=== PATIENT | male | born 1935 | race Caucasian/White ===

== ENCOUNTER 2017-07-25 18:28 | Inpatient (IN) | payer MEDICARE, OTHER ==
[~2017-07-25] VITALS: Ht 182.9 cm; Wt 127.5 kg
[2017-07-25 19:25] VITALS: BP 160/82
[2017-07-25] MEDS ORDERED: MAG HYDROX/AL HYDROX/SIMETH 30 ML ORAL.SUSP PO PRN (19:45)
[2017-07-25] MEDS ORDERED: MAGNESIUM HYDROXIDE 2,400 MG/30 ML ORAL.SUSP. PO PRN (19:45)
[2017-07-25] MEDS ORDERED: ACETAMINOPHEN 325 MG TABLET PO PRN (19:45)
[2017-07-25] MEDS ORDERED: METHYL SALICYLATE/MENTHOL TOPICAL OINTMENT 29GM TUBE. TP PRN (19:45)
[2017-07-25] MEDS: INSULIN LISPRO 300 UNITS/3 ML INSULN.PEN. SQ SCH ×2 (21:00→22:33)
[2017-07-25 21:23] LABS: BASO # 0.1 x10^3/uL (0.0-0.2); BASO % 1 % (0-3); EOS # 0.6 x10^3/uL (0.0-0.7); EOS % 8 % (0-3); HEMOGLOBIN 11.5 g/dL (13.0-17.5); LYMPH # 1.3 x10^3/uL (1.0-4.8); LYMPH % 16 % (24-48); MEAN CORPUSCULAR HEMOGLOBIN 33 pg (25-35); MEAN CORPUSCULAR HGB CONC 34 g/dL (31-37); MEAN CORPUSCULAR VOLUME 98 fL (79-100); MONO # 0.5 x10^3/uL (0.0-1.1); MONO % 7 % (0-9); NEUT # 5.3 x10^3uL (1.8-7.7); NEUT % 68 % (31-73); PLATELET COUNT 296 x10^3/uL (140-400); RED BLOOD COUNT 3.47 x10^6/uL (4.30-5.70); RED CELL DISTRIBUTION WIDTH 14.4 % (11.5-14.5); WHITE BLOOD COUNT 7.8 x10^3/uL (4.0-11.0)
--- NOTE | 2017-07-25 21:25 | PDOC ---
Exam Note: Eddie Note: Please also refer to the separate dictated note~for this date of service dictated separately.~Patient seen individually. Discussed the patient with Nursing staff reviewed the chart.~Reviewed interim history and current functioning. Reviewed vital signs,~Labs/ Radiology~and current medications noted below. Continue current treatment with the changes noted in the dictated addendum note Assessment: Vital Signs: Vital Signs Date Time Temp Pulse Resp B/P (MAP) Pulse Ox O2 Delivery O2 Flow Rate FiO2 07/25/17 19:25 97.7 73 20 160/82 (108) 100 Room Air Labs: Laboratory Tests Test 07/25/17 20:59 Glucose (Fingerstick) 188 mg/dL (70-99) H Current Medications: Meds: Current Medications Acetaminophen (Tylenol) 650 mg PRN Q6HRS PRN PO PAIN / TEMP; Start 07/25/17 at 19:45 Multi-Ingredient Ointment (Analgesic [place]) 1 nelson PRN QID PRN TP MUSCLE PAIN; Start 07/25/17 at 19:45 Al Hydroxide/Mg Hydroxide (Mylanta Plus Xs) 15 ml PRN AFTMEALHC PRN PO DYSPEPSIA; Start 07/25/17 at 19:45 Magnesium Hydroxide (Milk Of Magnesia) 2,400 mg PRN QHS PRN PO CONSTIPATION; Start 07/25/17 at 19:45 I have reviewed the current psychotropics carefully including drug interactions. Risk benefit ratio favors no change other than as noted in my dictated progress note. TEZ MATHEWS MD Jul 25, 2017 21:25
[2017-07-25] MEDS ORDERED: LEVO75TA5 PO (21:38)
[2017-07-25] MEDS ORDERED: HYDR-2758 PO (21:38)
[2017-07-25] MEDS ORDERED: INSU100I11 SQ (21:38)
[2017-07-25] MEDS ORDERED: LISI-338 PO (21:38)
[2017-07-25] MEDS ORDERED: ONDA4TAB10 PO (21:38)
[2017-07-25] MEDS ORDERED: MECL25TA3 PO (21:38)
[2017-07-25] MEDS ORDERED: ESCITALOPRAM OX20 MG PO (21:38)
[2017-07-25] MEDS ORDERED: MELA3TAB2 PO (21:38)
[2017-07-25] MEDS ORDERED: DONE10TA7 PO (21:38)
[2017-07-25] MEDS ORDERED: INSU100I13 SQ (21:38)
[2017-07-25] MEDS ORDERED: POLY17PO5 PO (21:38)
[2017-07-25 21:41] LABS: ALBUMIN 2.9 g/dL (3.4-5.0); ALBUMIN/GLOBULIN RATIO 0.9 (1.0-1.7); CALCIUM 8.5 mg/dL (8.5-10.1); CREATININE 0.9 mg/dL (0.7-1.3); GFR 81.2; MAGNESIUM 1.7 mg/dL (1.8-2.4); POTASSIUM 4.5 mmol/L (3.5-5.1); TOTAL BILIRUBIN 0.2 mg/dL (0.2-1.0); TOTAL PROTEIN 6.1 g/dL (6.4-8.2)
[2017-07-25] MEDS ORDERED: ONDANSETRON ODT 4 MG TAB.RAPDIS PO PRN (21:45)
[2017-07-25] MEDS ORDERED: POLYETHYLENE GLYCOL 3350 17 GM PACKET. PO PRN (21:45)
[2017-07-25] MEDS ORDERED: HYDROcodone/APAP 5/325MG 1 TAB TABLET PO PRN (21:45)
[2017-07-25] MEDS ORDERED: DEXTROSE 50% 25 GM / 50ML DISP.SYRIN. IV PRN (22:00)
[2017-07-25] MEDS: MELATONIN 3 MG TABLET PO SCH (22:30)
[2017-07-25] MEDS: MECLIZINE 12.5 MG TABLET. PO SCH (22:30)
[2017-07-25] MEDS: DONEPEZIL HCL 10 MG TABLET PO SCH (22:30)
[2017-07-25] MEDS: INSULIN GLARGINE 300 UNITS/3 ML INSULN.PEN. SQ SCH (22:32)
[2017-07-25] MEDS ORDERED: BUPR150T15 PO (23:11)
[2017-07-26 05:33] LABS: BACTERIA,URINE 0 /HPF (0-FEW); BILIRUBIN,URINE NEG (NEG); CLARITY,URINE CLEAR; COLOR,URINE YELLOW; GLUCOSE,URINE NEG (NEG); NITRITE,URINE NEG (NEG); RBC,URINE 0 /HPF (0-2); SQUAMOUS EPITHELIAL CELL,UR OCC /LPF; UROBILINOGEN,URINE 0.2 mg/dL (0.2 mg/dL); WBC,URINE RARE /HPF (0-4)
[2017-07-26 05:52] VITALS: BP 135/72
[2017-07-26] MEDS: INSULIN LISPRO 300 UNITS/3 ML INSULN.PEN. SQ SCH ×8 (07:30→21:00)
[2017-07-26] MEDS ORDERED: LEVOTHYROXINE 75 MCG TABLET PO SCH (07:30)
[2017-07-26] MEDS ORDERED: INSULIN LISPRO 300 UNITS/3 ML INSULN.PEN. SQ SCH (07:30)
[2017-07-26] MEDS: MECLIZINE 12.5 MG TABLET. PO SCH ×2 (08:45→21:13)
[2017-07-26] MEDS: LISINOPRIL 5 MG TABLET. PO SCH (08:46)
[2017-07-26] MEDS: buPROPion XL 150 MG TAB.ER.24H PO SCH (08:46)
[2017-07-26 14:25] LABS: THYROID STIM HORMONE (TSH) 1.53 uIU/mL (0.358-3.740)
[2017-07-26 16:24] VITALS: BP 151/77
[2017-07-26] MEDS: CITALOPRAM 20 MG TABLET. PO SCH (16:54)
--- NOTE | 2017-07-26 18:31 | PDOC ---
Exam Note: Eddie Note: Please also refer to the separate dictated note~for this date of service dictated separately.~Patient seen individually. Discussed the patient with Nursing staff reviewed the chart.~Reviewed interim history and current functioning. Reviewed vital signs,~Labs/ Radiology~and current medications noted below. Continue current treatment with the changes noted in the dictated addendum note Assessment: Vital Signs: Vital Signs Date Time Temp Pulse Resp B/P (MAP) Pulse Ox O2 Delivery O2 Flow Rate FiO2 07/26/17 16:24 97.6 58 20 151/77 (101) 100 Room Air I&O Intake and Output 07/26/17 07:00 # Voids 1 Labs: Laboratory Tests Test 07/25/17 20:45 07/25/17 20:59 07/26/17 05:10 07/26/17 07:12 White Blood Count 7.8 x10^3/uL (4.0-11.0) Red Blood Count 3.47 x10^6/uL (4.30-5.70) L Hemoglobin 11.5 g/dL (13.0-17.5) L Hematocrit 34.0 % (39.0-53.0) L Mean Corpuscular Volume 98 fL (79-100) Mean Corpuscular Hemoglobin 33 pg (25-35) Mean Corpuscular Hemoglobin Concent 34 g/dL (31-37) Red Cell Distribution Width 14.4 % (11.5-14.5) Platelet Count 296 x10^3/uL (140-400) Neutrophils (%) (Auto) 68 % (31-73) Lymphocytes (%) (Auto) 16 % (24-48) L Monocytes (%) (Auto) 7 % (0-9) Eosinophils (%) (Auto) 8 % (0-3) H Basophils (%) (Auto) 1 % (0-3) Neutrophils # (Auto) 5.3 x10^3uL (1.8-7.7) Lymphocytes # (Auto) 1.3 x10^3/uL (1.0-4.8) Monocytes # (Auto) 0.5 x10^3/uL (0.0-1.1) Eosinophils # (Auto) 0.6 x10^3/uL (0.0-0.7) Basophils # (Auto) 0.1 x10^3/uL (0.0-0.2) Sodium Level 140 mmol/L (136-145) Potassium Level 4.5 mmol/L (3.5-5.1) Chloride Level 106 mmol/L (98-107) Carbon Dioxide Level 29 mmol/L (21-32) Anion Gap 5 (6-14) L Blood Urea Nitrogen 12 mg/dL (8-26) Creatinine 0.9 mg/dL (0.7-1.3) Estimated GFR (Cockcroft-Gault) 81.2 BUN/Creatinine Ratio 13 (6-20) Glucose Level 201 mg/dL (70-99) H Calcium Level 8.5 mg/dL (8.5-10.1) Magnesium Level 1.7 mg/dL (1.8-2.4) L Iron Level 56 ug/dL (65-175) L Total Iron Binding Capacity 207 ug/dL (250-450) L Iron Saturation 27 % (15-34) Total Bilirubin 0.2 mg/dL (0.2-1.0) Aspartate Amino Transferase (AST) 16 U/L (15-37) Alanine Aminotransferase (ALT) 19 U/L (16-63) Alkaline Phosphatase 106 U/L (46-116) Total Protein 6.1 g/dL (6.4-8.2) L Albumin 2.9 g/dL (3.4-5.0) L Albumin/Globulin Ratio 0.9 (1.0-1.7) L Triglycerides Level 151 mg/dL (0-150) H Cholesterol Level 181 mg/dL (0-200) LDL Cholesterol, Calculated 111 mg/dL (0-100) H VLDL Cholesterol, Calculated 30 mg/dL (0-40) Non-HDL Cholesterol Calculated 141 mg/dL (0-129) H HDL Cholesterol 40 mg/dL (40-60) Cholesterol/HDL Ratio 4.0 Vitamin B12 Level 186 pg/mL (247-911) L 25-Hydroxy Vitamin D Total 13.1 ng/mL (30-100) L Thyroid Stimulating Hormone (TSH) 1.530 uIU/mL (0.358-3.740) Glucose (Fingerstick) 188 mg/dL (70-99) H 111 mg/dL (70-99) H Urine Collection Type Unknown Urine Color Yellow Urine Clarity Clear Urine pH 6.5 Urine Specific [place] 1.015 Urine Protein Neg (NEG-TRACE) Urine Glucose (UA) Neg mg/dL (NEG) Urine Ketones (Stick) Neg mg/dL (NEG) Urine Blood Trace (NEG) Urine Nitrite Neg (NEG) Urine Bilirubin Neg (NEG) Urine Urobilinogen Dipstick 0.2 mg/dL (0.2 mg/dL) Urine Leukocyte Esterase Neg (NEG) Urine RBC 0 /HPF (0-2) Urine WBC Rare /HPF (0-4) Urine Squamous Epithelial Cells Occ /LPF Urine Bacteria 0 /HPF (0-FEW) Test 07/26/17 11:24 07/26/17 16:42 Glucose (Fingerstick) 131 mg/dL (70-99) H 157 mg/dL (70-99) H Current Medications: Meds: Current Medications Acetaminophen (Tylenol) 650 mg PRN Q6HRS PRN PO PAIN / TEMP; Start 07/25/17 at 19:45 Multi-Ingredient Ointment (Analgesic [place]) 1 nelson PRN QID PRN TP MUSCLE PAIN; Start 07/25/17 at 19:45 Al Hydroxide/Mg Hydroxide (Mylanta Plus Xs) 15 ml PRN AFTMEALHC PRN PO DYSPEPSIA; Start 07/25/17 at 19:45 Magnesium Hydroxide (Milk Of Magnesia) 2,400 mg PRN QHS PRN PO CONSTIPATION; Start 07/25/17 at 19:45 Donepezil HCl (Aricept) 10 mg QHS PO Last administered on 07/25/17at 22:30; Start 07/25/17 at 22:00 Citalopram Hydrobromide (CeleXA) 40 mg DAILYWSUP PO Last administered on at 16:54; Start 07/26/17 at 17:00 Melatonin 6 mg QHS PO Last administered on 07/25/17at 22:30; Start 07/25/17 at 22:00 Acetaminophen/ Hydrocodone Bitart (Lortab 5/325) 1 tab PRN Q6HRS PRN PO PAIN; Start 07/25/17 at 21:45 Insulin Glargine (Lantus) 5 units QHS SQ Last administered on 07/25/17at 22:32; Start 07/25/17 at 21:00 Insulin Human Lispro (HumaLOG) 2 units QIDACHS SQ Last administered on at 16:58; Start 07/25/17 at 21:00 Insulin Human Lispro (HumaLOG) 100 units QIDACHS SQ ; Start 07/26/17 at 07:30; Stop 07/26/17 at 07:30; Status DC Levothyroxine Sodium (Synthroid) 75 mcg DAILYAC PO Last administered on at 08:45; Start 07/26/17 at 07:30; Stop 07/26/17 at 11:21; Status DC Lisinopril (Prinivil) 5 mg DAILY PO Last administered on 07/26/17at 08:46; Start 07/26/17 at 09:00 Ondansetron HCl (Zofran Odt) 4 mg PRN Q8HRS PRN PO NAUSEA/VOMITING; Start 07/25 at 21:45 Polyethylene Glycol (miraLAX) 17 gm PRN DAILY PRN PO CONSTIPATION; Start at 21:45 Meclizine HCl (Antivert) 25 mg BID PO Last administered on 07/26/17at 08:45; Start 07/25/17 at 22:15 Insulin Human Lispro (HumaLOG) 0-12 UNITS QIDACHS SQ ; Start 07/25/17 at 21:00 Dextrose 12.5 gm PRN Q15MIN PRN IV SEE COMMENTS; Start 07/25/17 at 22:00 Bupropion HCl (Wellbutrin Xl) 150 mg DAILY PO Last administered on 07/26/17at 08 :46; Start 07/26/17 at 09:00 Levothyroxine Sodium (Synthroid) 75 mcg DAILY06 PO ; Start 07/27/17 at 06:00 Cyanocobalamin (Vitamin B-12) 1,000 mcg WEEKLY IM ; Start 08/02/17 at 09:00 Vitamin D (Vitamin D3) 50,000 unit WEEKLY PO ; Start 07/26/17 at 19:00 Active Scripts Active Reported Wellbutrin Xl (Bupropion Hcl) 150 Mg Tab.er.24h 150 Mg PO DAILY Lantus Solostar (Insulin Glargine,Hum.rec.anlog) 100 Unit/1 Ml Insuln.pen 5 Unit SQ QHS Humalog (Insulin Lispro) 100 Unit/1 Ml Insuln.pen 2 Unit SQ QIDACHS Humalog (Insulin Lispro) 100 Unit/1 Ml Insuln.pen 100 Unit SQ QIDACHS Sliding scale before meals and at bedtime: >200= 4 units >300= 8 units >400= 12 units and call doctor Hydrocodone-Apap 5-325 (Hydrocodone Bit/Acetaminophen) 1 Each Tablet 1 Tab PO PRN Q6HRS PRN Levothyroxine Sodium 75 Mcg Tablet 75 Mcg PO DAILYAC Lisinopril 5 Mg Tablet 5 Mg PO DAILY Zofran Odt (Ondansetron) 4 Mg Tab.rapdis 4 Mg PO PRN Q8HRS PRN Miralax (Polyethylene Glycol 3350) 17 Gm Powd.pack 17 Gm PO PRN DAILY PRN Meclizine Hcl 25 Mg Tablet 25 Mg PO BID Melatonin 3 Mg Tablet 6 Mg PO QHS Donepezil Hcl 10 Mg Tablet 10 Mg PO QHS Escitalopram Oxalate 20 Mg Tablet 20 Mg PO DAILYWSUP I have reviewed the current psychotropics carefully including drug interactions. Risk benefit ratio favors no change other than as noted in my dictated progress note. Diagnosis: Problems: (1) Anxiety disorder (2) Dementia in Alzheimer's disease with delusions (3) Dementia in Alzheimer's disease with depression (4) Dementia, vascular, with delusions (5) Dementia, vascular, with depression (6) Impulse control disorder TEZ MATHEWS MD Jul 26, 2017 18:31
--- NOTE | 2017-07-26 19:04 | HP ---
ADMIT DATE: 07/26/2017 PSYCHIATRIC ADMISSION HISTORY/EVALUATION This note covers elements not covered in my initial note 07/26/2017. IDENTIFYING DATA: The patient is an 82-year-old male referred to us from [facility] by his primary care physician, Dr. Macario and psychiatrist . The patient is having sexually inappropriate behaviors. He is found putting his hand under the dress of another female resident. He was making inappropriate sexual comments. Behaviors were deemed dangerous. He has been sent to the [facility]. Return back to the facility once he is medically stable. He had to be placed on one-on-one status for worsening behaviors. Changes in his psychotropics were attempted. He had failed all of this. Behaviors had been worsening for the past 2 or 3 weeks and on 06/16/2017 he made similar sexually aggressive acts towards yet another female resident. He has failed outpatient psychiatric interventions resulting in this referral. CHIEF COMPLAINT: "I don't know when I came here. I don't know where I live. My memory is getting short." HISTORY OF PRESENT ILLNESS: The patient has history of dementia, Alzheimer's vascular type. Even though at times he is oriented to the date and his situation, but the short term memory has been progressively worsening. He has been quite sexually inappropriate, sexually abrasive, aggressive. He has had sleep and appetite changes. No active suicidal or homicidal ideation. No clear symptoms of bipolar disorder. PAST PSYCHIATRIC HISTORY: As above. The patient has been residing at the residential for some time. PAST MEDICAL HISTORY: Diabetes mellitus, muscle weakness, chronic pain, shortness of breath, wrist drop, UTI, hypertension, chronic constipation, hypothyroidism. He needs a [facility] for transfer. CODE STATUS: Full code. DRUG ALLERGIES: Negative. DIET: Regular, takes his medications whole. CURRENT PSYCHOTROPICS: Celexa 40 mg a day, Aricept 10 mg a day, melatonin 6 mg at bedtime, Wellbutrin 150 mg daily. FAMILY HISTORY: Noncontributory. SOCIAL HISTORY: The patient states he has done "many different jobs." He is unable to specify. No alcohol or drug abuse, physical, sexual or elder abuse history is noted. He is not known to be a perpetrator. When question about the alcohol he stated "never used that and I have never smoked." MENTAL STATUS EXAM: The patient was seen individually evening of 07/26/2017. He is oriented to himself. Insight, judgment, recent and remote memory, attention, concentration, fund of knowledge poor, consistent with his diagnoses. No active suicidal or homicidal ideation at this time. IMPRESSION: Reaction to hospitalization, the patient accepting of it. ASSETS: Supportive family. IMPRESSION: Major neurocognitive disorder, Alzheimer, vascular with depression, delusion, behavioral disturbance; anxiety disorder, unspecified; impulse control disorder, unspecified. Rest as above. PLAN: Admit to geropsychiatry unit at [facility]. I will see the patient daily individually from a psychiatric standpoint, medical followup with Dr. Tang. We will continue current psychotropics, observe baseline. May consider adding Depakote as a mood stabilizer. MAN Sunny MATHEWS MD DR: IAN/elvis JOB#: [id number] / [id number]
[2017-07-26 19:16] LABS: T3 TOTAL 77 ng/dL (71-180); THYROXINE 6.7 ug/dL (4.5-12.0)
--- NOTE | 2017-07-26 21:10 | PDOC ---
Exam Note: Eddie Note: Please also refer to the separate dictated note~for this date of service dictated separately.~Patient seen individually. Discussed the patient with Nursing staff reviewed the chart.~Reviewed interim history and current functioning. Reviewed vital signs,~Labs/ Radiology~and current medications noted below. Continue current treatment with the changes noted in the dictated addendum note Assessment: Vital Signs: Vital Signs Date Time Temp Pulse Resp B/P (MAP) Pulse Ox O2 Delivery O2 Flow Rate FiO2 07/26/17 16:24 97.6 58 20 151/77 (101) 100 Room Air I&O Intake and Output 07/26/17 07:00 # Voids 1 Labs: Laboratory Tests Test 07/26/17 05:10 07/26/17 07:12 07/26/17 11:24 07/26/17 16:42 Urine Collection Type Unknown Urine Color Yellow Urine Clarity Clear Urine pH 6.5 Urine Specific [place] 1.015 Urine Protein Neg (NEG-TRACE) Urine Glucose (UA) Neg mg/dL (NEG) Urine Ketones (Stick) Neg mg/dL (NEG) Urine Blood Trace (NEG) Urine Nitrite Neg (NEG) Urine Bilirubin Neg (NEG) Urine Urobilinogen Dipstick 0.2 mg/dL (0.2 mg/dL) Urine Leukocyte Esterase Neg (NEG) Urine RBC 0 /HPF (0-2) Urine WBC Rare /HPF (0-4) Urine Squamous Epithelial Cells Occ /LPF Urine Bacteria 0 /HPF (0-FEW) Glucose (Fingerstick) 111 mg/dL (70-99) H 131 mg/dL (70-99) H 157 mg/dL (70-99) H Test 07/26/17 19:20 Glucose (Fingerstick) 121 mg/dL (70-99) H Current Medications: Meds: Current Medications Acetaminophen (Tylenol) 650 mg PRN Q6HRS PRN PO PAIN / TEMP; Start 07/25/17 at 19:45 Multi-Ingredient Ointment (Analgesic [place]) 1 nelson PRN QID PRN TP MUSCLE PAIN; Start 07/25/17 at 19:45 Al Hydroxide/Mg Hydroxide (Mylanta Plus Xs) 15 ml PRN AFTMEALHC PRN PO DYSPEPSIA; Start 07/25/17 at 19:45 Magnesium Hydroxide (Milk Of Magnesia) 2,400 mg PRN QHS PRN PO CONSTIPATION; Start 07/25/17 at 19:45 Donepezil HCl (Aricept) 10 mg QHS PO Last administered on 07/25/17at 22:30; Start 07/25/17 at 22:00 Citalopram Hydrobromide (CeleXA) 40 mg DAILYWSUP PO Last administered on at 16:54; Start 07/26/17 at 17:00 Melatonin 6 mg QHS PO Last administered on 07/25/17at 22:30; Start 07/25/17 at 22:00 Acetaminophen/ Hydrocodone Bitart (Lortab 5/325) 1 tab PRN Q6HRS PRN PO PAIN; Start 07/25/17 at 21:45 Insulin Glargine (Lantus) 5 units QHS SQ Last administered on 07/25/17at 22:32; Start 07/25/17 at 21:00 Insulin Human Lispro (HumaLOG) 2 units QIDACHS SQ Last administered on at 16:58; Start 07/25/17 at 21:00 Insulin Human Lispro (HumaLOG) 100 units QIDACHS SQ ; Start 07/26/17 at 07:30; Stop 07/26/17 at 07:30; Status DC Levothyroxine Sodium (Synthroid) 75 mcg DAILYAC PO Last administered on at 08:45; Start 07/26/17 at 07:30; Stop 07/26/17 at 11:21; Status DC Lisinopril (Prinivil) 5 mg DAILY PO Last administered on 07/26/17at 08:46; Start 07/26/17 at 09:00 Ondansetron HCl (Zofran Odt) 4 mg PRN Q8HRS PRN PO NAUSEA/VOMITING; Start 07/25 at 21:45 Polyethylene Glycol (miraLAX) 17 gm PRN DAILY PRN PO CONSTIPATION; Start at 21:45 Meclizine HCl (Antivert) 25 mg BID PO Last administered on 07/26/17at 08:45; Start 07/25/17 at 22:15 Insulin Human Lispro (HumaLOG) 0-12 UNITS QIDACHS SQ ; Start 07/25/17 at 21:00 Dextrose 12.5 gm PRN Q15MIN PRN IV SEE COMMENTS; Start 07/25/17 at 22:00 Bupropion HCl (Wellbutrin Xl) 150 mg DAILY PO Last administered on 07/26/17at 08 :46; Start 07/26/17 at 09:00 Levothyroxine Sodium (Synthroid) 75 mcg DAILY06 PO ; Start 07/27/17 at 06:00 Cyanocobalamin (Vitamin B-12) 1,000 mcg WEEKLY IM ; Start 08/02/17 at 09:00 Vitamin D (Vitamin D3) 50,000 unit WEEKLY PO ; Start 07/26/17 at 19:00 Active Scripts Active Reported Wellbutrin Xl (Bupropion Hcl) 150 Mg Tab.er.24h 150 Mg PO DAILY Lantus Solostar (Insulin Glargine,Hum.rec.anlog) 100 Unit/1 Ml Insuln.pen 5 Unit SQ QHS Humalog (Insulin Lispro) 100 Unit/1 Ml Insuln.pen 2 Unit SQ QIDACHS Humalog (Insulin Lispro) 100 Unit/1 Ml Insuln.pen 100 Unit SQ QIDACHS Sliding scale before meals and at bedtime: >200= 4 units >300= 8 units >400= 12 units and call doctor Hydrocodone-Apap 5-325 (Hydrocodone Bit/Acetaminophen) 1 Each Tablet 1 Tab PO PRN Q6HRS PRN Levothyroxine Sodium 75 Mcg Tablet 75 Mcg PO DAILYAC Lisinopril 5 Mg Tablet 5 Mg PO DAILY Zofran Odt (Ondansetron) 4 Mg Tab.rapdis 4 Mg PO PRN Q8HRS PRN Miralax (Polyethylene Glycol 3350) 17 Gm Powd.pack 17 Gm PO PRN DAILY PRN Meclizine Hcl 25 Mg Tablet 25 Mg PO BID Melatonin 3 Mg Tablet 6 Mg PO QHS Donepezil Hcl 10 Mg Tablet 10 Mg PO QHS Escitalopram Oxalate 20 Mg Tablet 20 Mg PO DAILYWSUP I have reviewed the current psychotropics carefully including drug interactions. Risk benefit ratio favors no change other than as noted in my dictated progress note. Diagnosis: Problems: (1) Anxiety disorder (2) Impulse control disorder (3) Dementia, vascular, with depression (4) Dementia, vascular, with delusions (5) Dementia in Alzheimer's disease with depression (6) Dementia in Alzheimer's disease with delusions TEZ MATHEWS MD Jul 26, 2017 21:10
[2017-07-26] MEDS: DONEPEZIL HCL 10 MG TABLET PO SCH (21:13)
[2017-07-26] MEDS: MELATONIN 3 MG TABLET PO SCH (21:13)
[2017-07-26] MEDS: CHOLECALCIFEROL (VITAMIN D3) 50,000 UNIT CAPSULE PO SCH (21:19)
[2017-07-26] MEDS: INSULIN GLARGINE 300 UNITS/3 ML INSULN.PEN. SQ SCH (21:24)
--- NOTE | 2017-07-27 01:13 | CONS ---
DATE OF CONSULTATION: 07/26/2017 HISTORY OF PRESENT ILLNESS: This is an 82-year-old male patient, a resident at [facility], who was admitted on account of being sexually inappropriate, hand under a peer's shirt, inappropriate comments, all this in the background of major neurocognitive disorder with delusion, and depression. PAST MEDICAL HISTORY: Significant for type 2 diabetes, hypertension, chronic constipation, hypothyroidism, chronic pain syndrome and right wrist drop muscle weakness. He has also severe osteoarthritis of both knee joints. He is wheelchair bound. PAST SURGICAL HISTORY: Significant for surgery of his right knee. He is scheduled for cholecystectomy, sometimes in the near future. ALLERGIES: He has no known drug allergies. MEDICATIONS: He is currently on the following medications: He is on Aricept 10 mg at bedtime, lisinopril 5 mg once a day, hydrocodone/APAP 5/325 one tablet every 6 hours, Wellbutrin 150 mg daily, escitalopram oxalate 20 mg daily, polyethylene glycol for MiraLax 17 grams daily, meclizine 25 mg twice a day, ondansetron 4 mg every 8 hours. He is on Lantus insulin 5 units at bedtime, Humalog insulin as insulin sliding scale before meals. He is also on levothyroxine 75 mcg once a day and melatonin 6 mg at bedtime. FAMILY HISTORY: Unremarkable. SOCIAL HISTORY: He is a resident at [facility]. He said he has 3 sons and 1 daughter. He used to be a smoker. 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 PHYSICAL EXAMINATION: GENERAL: When I examined him, he was sitting comfortably wheeling himself around, in no apparent respiratory distress. He was pale, but no jaundice, cyanosis or thyromegaly. No jugular venous distention. No limb edema. VITAL SIGNS: His heart rate was 58, blood pressure was 151/77, temperature was 97.6, respiratory rate was 20, and oxygen saturation was 100%. HEAD, EYES, EARS, NOSE AND THROAT: Showed normocephalic, atraumatic. NECK: Supple. HEART: Showed normal first and second heart sounds. No gallop, rub or murmur. CHEST: Clear to auscultation. No crepitation or rhonchi. ABDOMEN: Distended, soft, nontender. No guarding or rigidity. No organomegaly. All hernial orifices are intact. Bowel sounds are normal. NEUROLOGIC: He is awake, alert, responding appropriately. Cranial nerves are intact. He moves upper extremities to much greater extent than his lower extremities. He has severe osteoarthritis of both knee joints with fixed flexion contracture. LABORATORY DATA: Showed a white cell count of 7800, hemoglobin 11.5, hematocrit 34, MCV 98 and platelet count 296,000. His chemistry showed that his serum sodium was 140, potassium 4.5, chloride 106, bicarbonate 29, anion gap of 5, BUN 12, creatinine 0.9, estimated GFR was 81 mL per minute. His glucose was 201. Calcium was 8.5, magnesium 1.7. Serum iron was 56, TIBC was 207, percent saturation 27. Total bilirubin, AST, ALT, alkaline phosphatase were normal. Total protein 6.1, albumin 2.9. His serum triglycerides were 151, total cholesterol 181, LDL cholesterol was 11, VLDL was 30, HDL was 40 and the ratio was 4. His TSH was 1.53, his vitamin B12 was 186 and 25-hydroxy vitamin D was 13. IMPRESSION: In summary, this is an 82-year-old male patient who was admitted on account of being sexually inappropriate, hand under a peer's shirt, inappropriate comments, all this with a background of major neurocognitive disorder with delusion and depression. Here in the unit, he was withdrawn to his room, does not really mixing with other resident. His lab work showed that he has vitamin B12 deficiency and 25-hydroxy vitamin D deficiency. Urinalysis was essentially unremarkable and I will arrange to replace his vitamin B12 as well as vitamin D. We will follow his lab works that are still pending and make necessary recommendation. Thank you, Dr. Sims for allowing me to participate in the care of this patient. RAMONA EARL MD DR: TED/elvis JOB#: [id number] / [id number]
[2017-07-27 05:11] LABS: HEMOGLOBIN A1C 6.5 % (4.8-5.6)
[2017-07-27 06:03] VITALS: BP 145/66
[2017-07-27] MEDS: INSULIN LISPRO 300 UNITS/3 ML INSULN.PEN. SQ SCH ×8 (07:30→20:10)
[2017-07-27] MEDS: buPROPion XL 150 MG TAB.ER.24H PO SCH (09:08)
[2017-07-27] MEDS: MECLIZINE 12.5 MG TABLET. PO SCH ×2 (09:09→20:08)
[2017-07-27] MEDS: LISINOPRIL 5 MG TABLET. PO SCH (09:09)
[2017-07-27] MEDS: LEVOTHYROXINE 75 MCG TABLET PO SCH (09:13)
[2017-07-27 16:22] VITALS: BP 131/62
[2017-07-27] MEDS: CITALOPRAM 20 MG TABLET. PO SCH (16:31)
[2017-07-27] MEDS: DONEPEZIL HCL 10 MG TABLET PO SCH (20:08)
[2017-07-27] MEDS: MELATONIN 3 MG TABLET PO SCH (20:08)
[2017-07-27] MEDS: INSULIN GLARGINE 300 UNITS/3 ML INSULN.PEN. SQ SCH (20:11)
--- NOTE | 2017-07-27 20:59 | PDOC ---
Exam Note: Eddie Note: Please also refer to the separate dictated note~for this date of service dictated separately.~Patient seen individually. Discussed the patient with Nursing staff reviewed the chart.~Reviewed interim history and current functioning. Reviewed vital signs,~Labs/ Radiology~and current medications noted below. Continue current treatment with the changes noted in the dictated addendum note Assessment: Vital Signs: Vital Signs Date Time Temp Pulse Resp B/P (MAP) Pulse Ox O2 Delivery O2 Flow Rate FiO2 07/27/17 16:22 98.0 64 18 131/62 (85) 100 07/26/17 16:24 Room Air I&O Intake and Output 07/27/17 07:00 Intake Total 1380 ml Balance 1380 ml Intake Oral 1380 ml # Voids 1 # Bowel Movements 2 Labs: Laboratory Tests Test 07/27/17 07:30 07/27/17 11:55 07/27/17 16:17 07/27/17 19:28 Glucose (Fingerstick) 108 mg/dL (70-99) H 118 mg/dL (70-99) H 149 mg/dL (70-99) H 170 mg/dL (70-99) H Current Medications: Meds: Current Medications Acetaminophen (Tylenol) 650 mg PRN Q6HRS PRN PO PAIN / TEMP; Start 07/25/17 at 19:45 Multi-Ingredient Ointment (Analgesic [place]) 1 nelson PRN QID PRN TP MUSCLE PAIN; Start 07/25/17 at 19:45 Al Hydroxide/Mg Hydroxide (Mylanta Plus Xs) 15 ml PRN AFTMEALHC PRN PO DYSPEPSIA; Start 07/25/17 at 19:45 Magnesium Hydroxide (Milk Of Magnesia) 2,400 mg PRN QHS PRN PO CONSTIPATION; Start 07/25/17 at 19:45 Donepezil HCl (Aricept) 10 mg QHS PO Last administered on 07/27/17at 20:08; Start 07/25/17 at 22:00 Citalopram Hydrobromide (CeleXA) 40 mg DAILYWSUP PO Last administered on at 16:31; Start 07/26/17 at 17:00; Stop 07/27/17 at 18:10; Status DC Melatonin 6 mg QHS PO Last administered on 07/27/17at 20:08; Start 07/25/17 at 22:00 Acetaminophen/ Hydrocodone Bitart (Lortab 5/325) 1 tab PRN Q6HRS PRN PO PAIN; Start 07/25/17 at 21:45 Insulin Glargine (Lantus) 5 units QHS SQ Last administered on 07/27/17at 20:11; Start 07/25/17 at 21:00 Insulin Human Lispro (HumaLOG) 2 units QIDACHS SQ Last administered on at 20:10; Start 07/25/17 at 21:00 Insulin Human Lispro (HumaLOG) 100 units QIDACHS SQ ; Start 07/26/17 at 07:30; Stop 07/26/17 at 07:30; Status DC Levothyroxine Sodium (Synthroid) 75 mcg DAILYAC PO Last administered on at 08:45; Start 07/26/17 at 07:30; Stop 07/26/17 at 11:21; Status DC Lisinopril (Prinivil) 5 mg DAILY PO Last administered on 07/27/17at 09:09; Start 07/26/17 at 09:00 Ondansetron HCl (Zofran Odt) 4 mg PRN Q8HRS PRN PO NAUSEA/VOMITING; Start 07/25 at 21:45 Polyethylene Glycol (miraLAX) 17 gm PRN DAILY PRN PO CONSTIPATION; Start at 21:45 Meclizine HCl (Antivert) 25 mg BID PO Last administered on 07/27/17at 20:08; Start 07/25/17 at 22:15 Insulin Human Lispro (HumaLOG) 0-12 UNITS QIDACHS SQ ; Start 07/25/17 at 21:00 Dextrose 12.5 gm PRN Q15MIN PRN IV SEE COMMENTS; Start 07/25/17 at 22:00 Bupropion HCl (Wellbutrin Xl) 150 mg DAILY PO Last administered on 07/27/17at 09 :08; Start 07/26/17 at 09:00 Levothyroxine Sodium (Synthroid) 75 mcg DAILY06 PO Last administered on at 09:13; Start 07/27/17 at 06:00 Cyanocobalamin (Vitamin B-12) 1,000 mcg WEEKLY IM ; Start 08/02/17 at 09:00 Vitamin D (Vitamin D3) 50,000 unit WEEKLY PO Last administered on 07/26/17at 21: 19; Start 07/26/17 at 19:00 Sertraline HCl (Zoloft) 50 mg DAILY PO ; Start 07/28/17 at 09:00 Olanzapine (ZyPREXA ZYDIS) 1.25 mg PRN Q2HR PRN PO ANXIETY / AGITATION; Start 07/27/17 at 18:15 Active Scripts Active Reported Wellbutrin Xl (Bupropion Hcl) 150 Mg Tab.er.24h 150 Mg PO DAILY Lantus Solostar (Insulin Glargine,Hum.rec.anlog) 100 Unit/1 Ml Insuln.pen 5 Unit SQ QHS Humalog (Insulin Lispro) 100 Unit/1 Ml Insuln.pen 2 Unit SQ QIDACHS Humalog (Insulin Lispro) 100 Unit/1 Ml Insuln.pen 0-12 Unit SQ QIDACHS Sliding scale before meals and at bedtime: >200= 4 units >300= 8 units >400= 12 units and call doctor Hydrocodone-Apap 5-325 (Hydrocodone Bit/Acetaminophen) 1 Each Tablet 1 Tab PO PRN Q6HRS PRN Levothyroxine Sodium 75 Mcg Tablet 75 Mcg PO DAILYAC Lisinopril 5 Mg Tablet 5 Mg PO DAILY Zofran Odt (Ondansetron) 4 Mg Tab.rapdis 4 Mg PO PRN Q8HRS PRN Miralax (Polyethylene Glycol 3350) 17 Gm Powd.pack 17 Gm PO PRN DAILY PRN Meclizine Hcl 25 Mg Tablet 25 Mg PO BID Melatonin 3 Mg Tablet 6 Mg PO QHS Donepezil Hcl 10 Mg Tablet 10 Mg PO QHS Escitalopram Oxalate 20 Mg Tablet 20 Mg PO DAILYWSUP I have reviewed the current psychotropics carefully including drug interactions. Risk benefit ratio favors no change other than as noted in my dictated progress note. Diagnosis: Problems: (1) Anxiety disorder (2) Impulse control disorder (3) Dementia, vascular, with depression (4) Dementia, vascular, with delusions (5) Dementia in Alzheimer's disease with depression (6) Dementia in Alzheimer's disease with delusions TEZ MATHEWS MD Jul 27, 2017 20:59
[2017-07-28] MEDS: LEVOTHYROXINE 75 MCG TABLET PO SCH (05:46)
[2017-07-28 05:51] VITALS: BP 129/65
[2017-07-28] MEDS: INSULIN LISPRO 300 UNITS/3 ML INSULN.PEN. SQ SCH ×8 (07:44→20:31)
[2017-07-28] MEDS: MECLIZINE 12.5 MG TABLET. PO SCH ×2 (08:05→20:23)
[2017-07-28] MEDS: buPROPion XL 150 MG TAB.ER.24H PO SCH (08:05)
[2017-07-28] MEDS: LISINOPRIL 5 MG TABLET. PO SCH (08:05)
[2017-07-28] MEDS: SERTRALINE 50 MG TABLET. PO SCH (08:06)
[2017-07-28 16:18] VITALS: BP 136/64
[2017-07-28] MEDS: DONEPEZIL HCL 10 MG TABLET PO SCH (20:23)
[2017-07-28] MEDS: MELATONIN 3 MG TABLET PO SCH (20:23)
[2017-07-28] MEDS: INSULIN GLARGINE 300 UNITS/3 ML INSULN.PEN. SQ SCH (20:28)
[2017-07-28] MEDS: rOPINIRole 0.25 MG TABLET. PO SCH (20:31)
--- NOTE | 2017-07-28 22:43 | PDOC ---
Exam Note: Eddie Note: Please also refer to the separate dictated note~for this date of service dictated separately.~Patient seen individually. Discussed the patient with Nursing staff reviewed the chart.~Reviewed interim history and current functioning. Reviewed vital signs,~Labs/ Radiology~and current medications noted below. Continue current treatment with the changes noted in the dictated addendum note Assessment: Vital Signs: Vital Signs Date Time Temp Pulse Resp B/P (MAP) Pulse Ox O2 Delivery O2 Flow Rate FiO2 07/28/17 16:18 98.3 80 18 136/64 (88) 99 Room Air I&O Intake and Output 07/28/17 07:00 Intake Total 840 ml Balance 840 ml Intake Oral 840 ml # Voids 1 Labs: Laboratory Tests Test 07/28/17 07:04 07/28/17 12:05 07/28/17 16:54 07/28/17 19:21 Glucose (Fingerstick) 103 mg/dL (70-99) H 157 mg/dL (70-99) H 152 mg/dL (70-99) H 178 mg/dL (70-99) H Current Medications: Meds: Current Medications Acetaminophen (Tylenol) 650 mg PRN Q6HRS PRN PO PAIN / TEMP; Start 07/25/17 at 19:45 Multi-Ingredient Ointment (Analgesic [place]) 1 nelson PRN QID PRN TP MUSCLE PAIN; Start 07/25/17 at 19:45 Al Hydroxide/Mg Hydroxide (Mylanta Plus Xs) 15 ml PRN AFTMEALHC PRN PO DYSPEPSIA; Start 07/25/17 at 19:45 Magnesium Hydroxide (Milk Of Magnesia) 2,400 mg PRN QHS PRN PO CONSTIPATION; Start 07/25/17 at 19:45 Donepezil HCl (Aricept) 10 mg QHS PO Last administered on 07/28/17at 20:23; Start 07/25/17 at 22:00 Citalopram Hydrobromide (CeleXA) 40 mg DAILYWSUP PO Last administered on at 16:31; Start 07/26/17 at 17:00; Stop 07/27/17 at 18:10; Status DC Melatonin 6 mg QHS PO Last administered on 07/28/17at 20:23; Start 07/25/17 at 22:00 Acetaminophen/ Hydrocodone Bitart (Lortab 5/325) 1 tab PRN Q6HRS PRN PO PAIN; Start 07/25/17 at 21:45 Insulin Glargine (Lantus) 5 units QHS SQ Last administered on 07/28/17at 20:28; Start 07/25/17 at 21:00 Insulin Human Lispro (HumaLOG) 2 units QIDACHS SQ Last administered on at 20:30; Start 07/25/17 at 21:00 Insulin Human Lispro (HumaLOG) 100 units QIDACHS SQ ; Start 07/26/17 at 07:30; Stop 07/26/17 at 07:30; Status DC Levothyroxine Sodium (Synthroid) 75 mcg DAILYAC PO Last administered on at 08:45; Start 07/26/17 at 07:30; Stop 07/26/17 at 11:21; Status DC Lisinopril (Prinivil) 5 mg DAILY PO Last administered on 07/28/17at 08:05; Start 07/26/17 at 09:00 Ondansetron HCl (Zofran Odt) 4 mg PRN Q8HRS PRN PO NAUSEA/VOMITING; Start 07/25 at 21:45 Polyethylene Glycol (miraLAX) 17 gm PRN DAILY PRN PO CONSTIPATION; Start at 21:45 Meclizine HCl (Antivert) 25 mg BID PO Last administered on 07/28/17at 20:23; Start 07/25/17 at 22:15 Insulin Human Lispro (HumaLOG) 0-12 UNITS QIDACHS SQ ; Start 07/25/17 at 21:00 Dextrose 12.5 gm PRN Q15MIN PRN IV SEE COMMENTS; Start 07/25/17 at 22:00 Bupropion HCl (Wellbutrin Xl) 150 mg DAILY PO Last administered on 07/28/17at 08 :05; Start 07/26/17 at 09:00 Levothyroxine Sodium (Synthroid) 75 mcg DAILY06 PO Last administered on at 05:46; Start 07/27/17 at 06:00 Cyanocobalamin (Vitamin B-12) 1,000 mcg WEEKLY IM ; Start 08/02/17 at 09:00 Vitamin D (Vitamin D3) 50,000 unit WEEKLY PO Last administered on 07/26/17at 21: 19; Start 07/26/17 at 19:00 Sertraline HCl (Zoloft) 50 mg DAILY PO Last administered on 07/28/17at 08:06; Start 07/28/17 at 09:00 Olanzapine (ZyPREXA ZYDIS) 1.25 mg PRN Q2HR PRN PO ANXIETY / AGITATION; Start 07/27/17 at 18:15 Ropinirole HCl (Requip) 0.25 mg TID PO Last administered on 07/28/17at 20:31; Start 07/28/17 at 21:00 Medroxyprogesterone Acetate (Provera) 2.5 mg DAILY PO ; Start 07/29/17 at 09:00 ; Status UNV Active Scripts Active Reported Wellbutrin Xl (Bupropion Hcl) 150 Mg Tab.er.24h 150 Mg PO DAILY Lantus Solostar (Insulin Glargine,Hum.rec.anlog) 100 Unit/1 Ml Insuln.pen 5 Unit SQ QHS Humalog (Insulin Lispro) 100 Unit/1 Ml Insuln.pen 2 Unit SQ QIDACHS Humalog (Insulin Lispro) 100 Unit/1 Ml Insuln.pen 0-12 Unit SQ QIDACHS Sliding scale before meals and at bedtime: >200= 4 units >300= 8 units >400= 12 units and call doctor Hydrocodone-Apap 5-325 (Hydrocodone Bit/Acetaminophen) 1 Each Tablet 1 Tab PO PRN Q6HRS PRN Levothyroxine Sodium 75 Mcg Tablet 75 Mcg PO DAILYAC Lisinopril 5 Mg Tablet 5 Mg PO DAILY Zofran Odt (Ondansetron) 4 Mg Tab.rapdis 4 Mg PO PRN Q8HRS PRN Miralax (Polyethylene Glycol 3350) 17 Gm Powd.pack 17 Gm PO PRN DAILY PRN Meclizine Hcl 25 Mg Tablet 25 Mg PO BID Melatonin 3 Mg Tablet 6 Mg PO QHS Donepezil Hcl 10 Mg Tablet 10 Mg PO QHS Escitalopram Oxalate 20 Mg Tablet 20 Mg PO DAILYWSUP I have reviewed the current psychotropics carefully including drug interactions. Risk benefit ratio favors no change other than as noted in my dictated progress note. Diagnosis: Problems: (1) Anxiety disorder (2) Impulse control disorder (3) Dementia, vascular, with depression (4) Dementia, vascular, with delusions (5) Dementia in Alzheimer's disease with depression (6) Dementia in Alzheimer's disease with delusions TEZ MATHEWS MD Jul 28, 2017 22:42
[2017-07-29] MEDS: LEVOTHYROXINE 75 MCG TABLET PO SCH (05:47)
[2017-07-29 06:40] VITALS: BP 129/66
[2017-07-29] MEDS: INSULIN LISPRO 300 UNITS/3 ML INSULN.PEN. SQ SCH ×8 (07:57→21:54)
[2017-07-29] MEDS: MECLIZINE 12.5 MG TABLET. PO SCH ×2 (07:58→20:25)
[2017-07-29] MEDS: rOPINIRole 0.25 MG TABLET. PO SCH ×3 (07:59→20:25)
[2017-07-29] MEDS: SERTRALINE 50 MG TABLET. PO SCH (07:59)
[2017-07-29] MEDS: LISINOPRIL 5 MG TABLET. PO SCH (07:59)
[2017-07-29] MEDS: buPROPion XL 150 MG TAB.ER.24H PO SCH (07:59)
[2017-07-29 15:48] VITALS: BP 126/75
[2017-07-29] MEDS: MELATONIN 3 MG TABLET PO SCH (20:25)
[2017-07-29] MEDS: DONEPEZIL HCL 10 MG TABLET PO SCH (20:25)
--- NOTE | 2017-07-29 21:01 | PDOC ---
Exam Note: Eddie Note: Please also refer to the separate dictated note~for this date of service dictated separately.~Patient seen individually. Discussed the patient with Nursing staff reviewed the chart.~Reviewed interim history and current functioning. Reviewed vital signs,~Labs/ Radiology~and current medications noted below. Continue current treatment with the changes noted in the dictated addendum note Assessment: Vital Signs: Vital Signs Date Time Temp Pulse Resp B/P (MAP) Pulse Ox O2 Delivery O2 Flow Rate FiO2 07/29/17 15:48 97.8 71 19 126/75 (92) 96 07/29/17 06:40 Room Air I&O Intake and Output 07/29/17 07:00 Intake Total 1445 ml Output Total 1100 ml Balance 345 ml Intake Oral 1445 ml Output Urine Total 1100 ml # Voids 1 # Bowel Movements 2 Labs: Laboratory Tests Test 07/29/17 07:25 07/29/17 11:23 07/29/17 16:21 07/29/17 19:32 Glucose (Fingerstick) 109 mg/dL (70-99) H 174 mg/dL (70-99) H 172 mg/dL (70-99) H 176 mg/dL (70-99) H Current Medications: Meds: Current Medications Acetaminophen (Tylenol) 650 mg PRN Q6HRS PRN PO PAIN / TEMP; Start 07/25/17 at 19:45 Multi-Ingredient Ointment (Analgesic [place]) 1 nelson PRN QID PRN TP MUSCLE PAIN; Start 07/25/17 at 19:45 Al Hydroxide/Mg Hydroxide (Mylanta Plus Xs) 15 ml PRN AFTMEALHC PRN PO DYSPEPSIA; Start 07/25/17 at 19:45 Magnesium Hydroxide (Milk Of Magnesia) 2,400 mg PRN QHS PRN PO CONSTIPATION; Start 07/25/17 at 19:45 Donepezil HCl (Aricept) 10 mg QHS PO Last administered on 07/29/17at 20:25; Start 07/25/17 at 22:00 Citalopram Hydrobromide (CeleXA) 40 mg DAILYWSUP PO Last administered on at 16:31; Start 07/26/17 at 17:00; Stop 07/27/17 at 18:10; Status DC Melatonin 6 mg QHS PO Last administered on 07/29/17at 20:25; Start 07/25/17 at 22:00 Acetaminophen/ Hydrocodone Bitart (Lortab 5/325) 1 tab PRN Q6HRS PRN PO PAIN; Start 07/25/17 at 21:45 Insulin Glargine (Lantus) 5 units QHS SQ Last administered on 07/28/17at 20:28; Start 07/25/17 at 21:00 Insulin Human Lispro (HumaLOG) 2 units QIDACHS SQ Last administered on at 16:52; Start 07/25/17 at 21:00 Insulin Human Lispro (HumaLOG) 100 units QIDACHS SQ ; Start 07/26/17 at 07:30; Stop 07/26/17 at 07:30; Status DC Levothyroxine Sodium (Synthroid) 75 mcg DAILYAC PO Last administered on 08:45; Start 07/26/17 at 07:30; Stop 07/26/17 at 11:21; Status DC Lisinopril (Prinivil) 5 mg DAILY PO Last administered on 07/29/17at 07:59; Start 07/26/17 at 09:00 Ondansetron HCl (Zofran Odt) 4 mg PRN Q8HRS PRN PO NAUSEA/VOMITING; Start 07/25 at 21:45 Polyethylene Glycol (miraLAX) 17 gm PRN DAILY PRN PO CONSTIPATION; Start at 21:45 Meclizine HCl (Antivert) 25 mg BID PO Last administered on 07/29/17at 20:25; Start 07/25/17 at 22:15 Insulin Human Lispro (HumaLOG) 0-12 UNITS QIDACHS SQ ; Start 07/25/17 at 21:00 Dextrose 12.5 gm PRN Q15MIN PRN IV SEE COMMENTS; Start 07/25/17 at 22:00 Bupropion HCl (Wellbutrin Xl) 150 mg DAILY PO Last administered on 07/29/17 07 :59; Start 07/26/17 at 09:00 Levothyroxine Sodium (Synthroid) 75 mcg DAILY06 PO Last administered on at 05:47; Start 07/27/17 at 06:00 Cyanocobalamin (Vitamin B-12) 1,000 mcg WEEKLY IM ; Start 08/02/17 at 09:00 Vitamin D (Vitamin D3) 50,000 unit WEEKLY PO Last administered on 07/26/17at 21: 19; Start 07/26/17 at 19:00 Sertraline HCl (Zoloft) 50 mg DAILY PO Last administered on 07/29/17at 07:59; Start 07/28/17 at 09:00 Olanzapine (ZyPREXA ZYDIS) 1.25 mg PRN Q2HR PRN PO ANXIETY / AGITATION; Start 07/27/17 at 18:15 Ropinirole HCl (Requip) 0.25 mg TID PO Last administered on 07/29/17at 20:25; Start 07/28/17 at 21:00 Medroxyprogesterone Acetate (Provera) 2.5 mg DAILY PO Last administered on 07/29at 08:01; Start 07/29/17 at 09:00 Active Scripts Active Reported Wellbutrin Xl (Bupropion Hcl) 150 Mg Tab.er.24h 150 Mg PO DAILY Lantus Solostar (Insulin Glargine,Hum.rec.anlog) 100 Unit/1 Ml Insuln.pen 5 Unit SQ QHS Humalog (Insulin Lispro) 100 Unit/1 Ml Insuln.pen 2 Unit SQ QIDACHS Humalog (Insulin Lispro) 100 Unit/1 Ml Insuln.pen 0-12 Unit SQ QIDACHS Sliding scale before meals and at bedtime: >200= 4 units >300= 8 units >400= 12 units and call doctor Hydrocodone-Apap 5-325 (Hydrocodone Bit/Acetaminophen) 1 Each Tablet 1 Tab PO PRN Q6HRS PRN Levothyroxine Sodium 75 Mcg Tablet 75 Mcg PO DAILYAC Lisinopril 5 Mg Tablet 5 Mg PO DAILY Zofran Odt (Ondansetron) 4 Mg Tab.rapdis 4 Mg PO PRN Q8HRS PRN Miralax (Polyethylene Glycol 3350) 17 Gm Powd.pack 17 Gm PO PRN DAILY PRN Meclizine Hcl 25 Mg Tablet 25 Mg PO BID Melatonin 3 Mg Tablet 6 Mg PO QHS Donepezil Hcl 10 Mg Tablet 10 Mg PO QHS Escitalopram Oxalate 20 Mg Tablet 20 Mg PO DAILYWSUP I have reviewed the current psychotropics carefully including drug interactions. Risk benefit ratio favors no change other than as noted in my dictated progress note. Diagnosis: Problems: (1) Anxiety disorder (2) Impulse control disorder (3) Dementia, vascular, with depression (4) Dementia, vascular, with delusions (5) Dementia in Alzheimer's disease with depression (6) Dementia in Alzheimer's disease with delusions TEZ MATHEWS MD Jul 29, 2017 21:01
[2017-07-29] MEDS: INSULIN GLARGINE 300 UNITS/3 ML INSULN.PEN. SQ SCH (21:55)
--- NOTE | 2017-07-30 01:36 | PN ---
DATE: 07/27/2017 This is a late entry, 07/27/2017, covers the elements not covered in my initial note, 07/27/2017. SUBJECTIVE: I met with the patient evening of 07/27/2017. The patient slept 7 hours previous evening, upset in the morning, refused his medications, somewhat sedated at times, but he has right hand tremors, we will defer to Dr. Middleton, Neurology consult, slept 7 hours. REVIEW OF SYSTEMS: Ambulation impaired, in wheelchair/Edmundo for transfers. No CV, , pulmonary, eye, ENT system symptoms on review. At times, sexually inappropriate. MENTAL STATUS EXAM: Oriented to himself and situation. Insight, judgment, recent memory is impaired, remote is better, language function intact. Attention span short. Mood and affect less labile, still anxious, impulsive at times. LABORATORY DATA: Reviewed. IMPRESSION: Major neurocognitive disorder, Alzheimer's vascular with depression. Rest unchanged. PLAN: Add Zyprexa Zydis as needed. Change Celexa to Zoloft 50 mg a day should be better for his anxiety symptoms and tolerated better than the Celexa 40 mg a day from a cardiac standpoint given his age. MAN Sunny MATHEWS MD DR: IAN/elvis JOB#: [id number] / [id number]
[2017-07-30] MEDS: LEVOTHYROXINE 75 MCG TABLET PO SCH (05:38)
[2017-07-30 06:46] VITALS: BP 118/55
[2017-07-30] MEDS: INSULIN LISPRO 300 UNITS/3 ML INSULN.PEN. SQ SCH ×8 (07:57→20:39)
[2017-07-30] MEDS: MECLIZINE 12.5 MG TABLET. PO SCH ×2 (08:01→20:07)
[2017-07-30] MEDS: buPROPion XL 150 MG TAB.ER.24H PO SCH (08:04)
[2017-07-30] MEDS: rOPINIRole 0.25 MG TABLET. PO SCH ×3 (08:04→20:07)
[2017-07-30] MEDS: SERTRALINE 50 MG TABLET. PO SCH (08:04)
[2017-07-30] MEDS: LISINOPRIL 5 MG TABLET. PO SCH (09:00)
[2017-07-30 09:48] LABS: BASO # 0.1 x10^3/uL (0.0-0.2); BASO % 1 % (0-3); EOS # 0.5 x10^3/uL (0.0-0.7); EOS % 7 % (0-3); HEMOGLOBIN 11.3 g/dL (13.0-17.5); LYMPH # 1.3 x10^3/uL (1.0-4.8); LYMPH % 18 % (24-48); MEAN CORPUSCULAR HEMOGLOBIN 33 pg (25-35); MEAN CORPUSCULAR HGB CONC 33 g/dL (31-37); MEAN CORPUSCULAR VOLUME 99 fL (79-100); MONO # 0.5 x10^3/uL (0.0-1.1); MONO % 7 % (0-9); NEUT % 67 % (31-73); PLATELET COUNT 290 x10^3/uL (140-400); RED BLOOD COUNT 3.43 x10^6/uL (4.30-5.70); RED CELL DISTRIBUTION WIDTH 14.2 % (11.5-14.5); WHITE BLOOD COUNT 7.4 x10^3/uL (4.0-11.0)
[2017-07-30 10:05] LABS: ALBUMIN/GLOBULIN RATIO 0.9 (1.0-1.7); CALCIUM 8.8 mg/dL (8.5-10.1); CREATININE 1.1 mg/dL (0.7-1.3); GFR 64.4; POTASSIUM 4.1 mmol/L (3.5-5.1); TOTAL BILIRUBIN 0.3 mg/dL (0.2-1.0); TOTAL PROTEIN 6.5 g/dL (6.4-8.2)
--- NOTE | 2017-07-30 11:54 | PN ---
DATE: 07/29/2017 This note covers the elements not covered in my initial, 07/29/2017. SUBJECTIVE: I met with the patient in the afternoon. The patient was quite irritable, demanding last night, more calm, compliant today, less sexually inappropriate. He was started on Provera approved by Dr. Tang. REVIEW OF SYSTEMS: No CV, , pulmonary, eye system symptoms on review. Gait unsteady in wheelchair, was transferred with Edmundo lift. MENTAL STATUS EXAM: Oriented to himself and situation. Speech moderate latency, met with him in his room. Abstraction fair, computation impaired, language function interactive. Attention span short. Mood and affect, lability. LABORATORY DATA: Reviewed. IMPRESSION: Major neurocognitive disorder, Alzheimer, vascular with delusion, depression. rest unchanged. PLAN: Continue psychotropics as mentioned in my initial note, may need to increase Provera. MAN Sunny MATHEWS MD DR: IAN/elvis JOB#: [id number] / [id number]
--- NOTE | 2017-07-30 13:12 | OP ---
DATE OF SURGERY: 07/29/2017 PSYCHIATRIC PROGRESS NOTE This is a late entry 07/29/2017, covers elements not covered in my initial note 07/29/2017. SUBJECTIVE: I met with the patient in the afternoon of 07/29/2017. This is a redictation for 07/29/2017 requested by medical records. He is quite irritable previous evening demanding, calmer, cooperative during the day 07/29/2017, confused. I met with him in his room. REVIEW OF SYSTEMS: Ambulation impaired, in wheelchair. Edmundo lift as needed. No CV, , pulmonary, eye system symptoms on review. Less sexually inappropriate. MENTAL STATUS EXAM: Oriented to himself and situation. Speech moderate latency, often responses monosyllabic. Abstraction fair, computation impaired, language function intact, attention span short. Mood and affect still somewhat withdrawn, labile at times. LABORATORY DATA: Reviewed. IMPRESSION: Unchanged from initial note. PLAN: Continue current psychotropics, may need to increase Provera gradually. MAN Sunny MATHEWS MD DR: IAN/elvis JOB#: [id number] / [id number]
[2017-07-30 16:23] VITALS: BP 134/67
[2017-07-30] MEDS: MELATONIN 3 MG TABLET PO SCH (20:07)
[2017-07-30] MEDS: DONEPEZIL HCL 10 MG TABLET PO SCH (20:07)
[2017-07-30] MEDS: INSULIN GLARGINE 300 UNITS/3 ML INSULN.PEN. SQ SCH (20:18)
--- NOTE | 2017-07-30 20:56 | PDOC ---
Exam Note: Eddie Note: Please also refer to the separate dictated note~for this date of service dictated separately.~Patient seen individually. Discussed the patient with Nursing staff reviewed the chart.~Reviewed interim history and current functioning. Reviewed vital signs,~Labs/ Radiology~and current medications noted below. Continue current treatment with the changes noted in the dictated addendum note Assessment: Vital Signs: Vital Signs Date Time Temp Pulse Resp B/P (MAP) Pulse Ox O2 Delivery O2 Flow Rate FiO2 07/30/17 16:23 98.4 68 20 134/67 (89) 97 07/30/17 06:46 Room Air I&O Intake and Output 07/30/17 07:00 Intake Total 1520 ml Balance 1520 ml Intake Oral 1520 ml # Voids 1 # Bowel Movements 1 Labs: Laboratory Tests Test 07/30/17 07:18 07/30/17 09:27 07/30/17 11:16 07/30/17 16:19 Glucose (Fingerstick) 111 mg/dL (70-99) H 165 mg/dL (70-99) H 139 mg/dL (70-99) H White Blood Count 7.4 x10^3/uL (4.0-11.0) Red Blood Count 3.43 x10^6/uL (4.30-5.70) L Hemoglobin 11.3 g/dL (13.0-17.5) L Hematocrit 34.0 % (39.0-53.0) L Mean Corpuscular Volume 99 fL (79-100) Mean Corpuscular Hemoglobin 33 pg (25-35) Mean Corpuscular Hemoglobin Concent 33 g/dL (31-37) Red Cell Distribution Width 14.2 % (11.5-14.5) Platelet Count 290 x10^3/uL (140-400) Neutrophils (%) (Auto) 67 % (31-73) Lymphocytes (%) (Auto) 18 % (24-48) L Monocytes (%) (Auto) 7 % (0-9) Eosinophils (%) (Auto) 7 % (0-3) H Basophils (%) (Auto) 1 % (0-3) Neutrophils # (Auto) 5.0 x10^3uL (1.8-7.7) Lymphocytes # (Auto) 1.3 x10^3/uL (1.0-4.8) Monocytes # (Auto) 0.5 x10^3/uL (0.0-1.1) Eosinophils # (Auto) 0.5 x10^3/uL (0.0-0.7) Basophils # (Auto) 0.1 x10^3/uL (0.0-0.2) Sodium Level 137 mmol/L (136-145) Potassium Level 4.1 mmol/L (3.5-5.1) Chloride Level 103 mmol/L (98-107) Carbon Dioxide Level 26 mmol/L (21-32) Anion Gap 8 (6-14) Blood Urea Nitrogen 21 mg/dL (8-26) Creatinine 1.1 mg/dL (0.7-1.3) Estimated GFR (Cockcroft-Gault) 64.4 BUN/Creatinine Ratio 19 (6-20) Glucose Level 176 mg/dL (70-99) H Calcium Level 8.8 mg/dL (8.5-10.1) Total Bilirubin 0.3 mg/dL (0.2-1.0) Aspartate Amino Transferase (AST) 18 U/L (15-37) Alanine Aminotransferase (ALT) 20 U/L (16-63) Alkaline Phosphatase 91 U/L (46-116) Total Protein 6.5 g/dL (6.4-8.2) Albumin 3.0 g/dL (3.4-5.0) L Albumin/Globulin Ratio 0.9 (1.0-1.7) L Test 07/30/17 19:15 Glucose (Fingerstick) 176 mg/dL (70-99) H Current Medications: Meds: Current Medications Acetaminophen (Tylenol) 650 mg PRN Q6HRS PRN PO PAIN / TEMP; Start 07/25/17 at 19:45 Multi-Ingredient Ointment (Analgesic [place]) 1 nelson PRN QID PRN TP MUSCLE PAIN; Start 07/25/17 at 19:45 Al Hydroxide/Mg Hydroxide (Mylanta Plus Xs) 15 ml PRN AFTMEALHC PRN PO DYSPEPSIA; Start 07/25/17 at 19:45 Magnesium Hydroxide (Milk Of Magnesia) 2,400 mg PRN QHS PRN PO CONSTIPATION; Start 07/25/17 at 19:45 Donepezil HCl (Aricept) 10 mg QHS PO Last administered on 07/30/17 20:07; Start 07/25/17 at 22:00 Citalopram Hydrobromide (CeleXA) 40 mg DAILYWSUP PO Last administered on at 16:31; Start 07/26/17 at 17:00; Stop 07/27/17 at 18:10; Status DC Melatonin 6 mg QHS PO Last administered on 07/30/17 20:07; Start 07/25/17 at 22:00 Acetaminophen/ Hydrocodone Bitart (Lortab 5/325) 1 tab PRN Q6HRS PRN PO PAIN; Start 07/25/17 at 21:45 Insulin Glargine (Lantus) 5 units QHS SQ Last administered on 07/30/17 20:18; Start 07/25/17 at 21:00 Insulin Human Lispro (HumaLOG) 2 units QIDACHS SQ Last administered on at 20:39; Start 07/25/17 at 21:00 Insulin Human Lispro (HumaLOG) 100 units QIDACHS SQ ; Start 07/26/17 at 07:30; Stop 07/26/17 at 07:30; Status DC Levothyroxine Sodium (Synthroid) 75 mcg DAILYAC PO Last administered on at 08:45; Start 07/26/17 at 07:30; Stop 07/26/17 at 11:21; Status DC Lisinopril (Prinivil) 5 mg DAILY PO Last administered on 07/29/17at 07:59; Start 07/26/17 at 09:00 Ondansetron HCl (Zofran Odt) 4 mg PRN Q8HRS PRN PO NAUSEA/VOMITING; Start 07/25 at 21:45 Polyethylene Glycol (miraLAX) 17 gm PRN DAILY PRN PO CONSTIPATION; Start at 21:45 Meclizine HCl (Antivert) 25 mg BID PO Last administered on 07/30/17at 20:07; Start 07/25/17 at 22:15 Insulin Human Lispro (HumaLOG) 0-12 UNITS QIDACHS SQ ; Start 07/25/17 at 21:00 Dextrose 12.5 gm PRN Q15MIN PRN IV SEE COMMENTS; Start 07/25/17 at 22:00 Bupropion HCl (Wellbutrin Xl) 150 mg DAILY PO Last administered on 07/30/17at 08 :04; Start 07/26/17 at 09:00 Levothyroxine Sodium (Synthroid) 75 mcg DAILY06 PO Last administered on at 05:38; Start 07/27/17 at 06:00 Cyanocobalamin (Vitamin B-12) 1,000 mcg WEEKLY IM ; Start 08/02/17 at 09:00 Vitamin D (Vitamin D3) 50,000 unit WEEKLY PO Last administered on 07/26/17at 21: 19; Start 07/26/17 at 19:00 Sertraline HCl (Zoloft) 50 mg DAILY PO Last administered on 07/30/17at 08:04; Start 07/28/17 at 09:00 Olanzapine (ZyPREXA ZYDIS) 1.25 mg PRN Q2HR PRN PO ANXIETY / AGITATION; Start 07/27/17 at 18:15 Ropinirole HCl (Requip) 0.25 mg TID PO Last administered on 07/30/17at 20:07; Start 07/28/17 at 21:00 Medroxyprogesterone Acetate (Provera) 2.5 mg DAILY PO Last administered on 07/30at 08:03; Start 07/29/17 at 09:00 Active Scripts Active Reported Wellbutrin Xl (Bupropion Hcl) 150 Mg Tab.er.24h 150 Mg PO DAILY Lantus Solostar (Insulin Glargine,Hum.rec.anlog) 100 Unit/1 Ml Insuln.pen 5 Unit SQ QHS Humalog (Insulin Lispro) 100 Unit/1 Ml Insuln.pen 2 Unit SQ QIDACHS Humalog (Insulin Lispro) 100 Unit/1 Ml Insuln.pen 0-12 Unit SQ QIDACHS Sliding scale before meals and at bedtime: >200= 4 units >300= 8 units >400= 12 units and call doctor Hydrocodone-Apap 5-325 (Hydrocodone Bit/Acetaminophen) 1 Each Tablet 1 Tab PO PRN Q6HRS PRN Levothyroxine Sodium 75 Mcg Tablet 75 Mcg PO DAILYAC Lisinopril 5 Mg Tablet 5 Mg PO DAILY Zofran Odt (Ondansetron) 4 Mg Tab.rapdis 4 Mg PO PRN Q8HRS PRN Miralax (Polyethylene Glycol 3350) 17 Gm Powd.pack 17 Gm PO PRN DAILY PRN Meclizine Hcl 25 Mg Tablet 25 Mg PO BID Melatonin 3 Mg Tablet 6 Mg PO QHS Donepezil Hcl 10 Mg Tablet 10 Mg PO QHS Escitalopram Oxalate 20 Mg Tablet 20 Mg PO DAILYWSUP I have reviewed the current psychotropics carefully including drug interactions. Risk benefit ratio favors no change other than as noted in my dictated progress note. Diagnosis: Problems: (1) Anxiety disorder (2) Impulse control disorder (3) Dementia, vascular, with depression (4) Dementia, vascular, with delusions (5) Dementia in Alzheimer's disease with depression (6) Dementia in Alzheimer's disease with delusions TEZ MATHEWS MD Jul 30, 2017 20:56
[2017-07-31] MEDS: LEVOTHYROXINE 75 MCG TABLET PO SCH (05:39)
[2017-07-31 06:25] VITALS: BP 120/60
[2017-07-31] MEDS: INSULIN LISPRO 300 UNITS/3 ML INSULN.PEN. SQ SCH ×8 (07:30→20:00)
[2017-07-31] MEDS: LISINOPRIL 5 MG TABLET. PO SCH (08:07)
[2017-07-31] MEDS: rOPINIRole 0.25 MG TABLET. PO SCH ×3 (08:07→19:49)
[2017-07-31] MEDS: buPROPion XL 150 MG TAB.ER.24H PO SCH (08:07)
[2017-07-31] MEDS: SERTRALINE 50 MG TABLET. PO SCH (08:08)
[2017-07-31] MEDS: MECLIZINE 12.5 MG TABLET. PO SCH ×2 (08:08→19:49)
--- NOTE | 2017-07-31 11:17 | PN ---
DATE: 07/27/2017 PSYCHIATRIC PROGRESS NOTE This is a late entry 07/27/2017, covers elements not covered in my initial note 07/27/2017. SUBJECTIVE: I met with the patient the evening of 07/27/2017. This note is being redictated as requested by health information office. The patient slept 7 hours previous evening, was seen by Dr. Middleton for tremors right hand. He was upset in the morning, somewhat sedated, refused his medications. Nursing staff had called me and we added Zyprexa to 1.25 mg q.2 hours p.r.n. psychosis, agitation, max 7.5 mg in 24 hours. REVIEW OF SYSTEMS: Ambulation impaired, in wheelchair and transfers with Edmundo lift. No CV, , pulmonary, eye, ENT system symptoms on review. MENTAL STATUS EXAM: Oriented to himself and situation. Speech has some latency, coherent. Abstraction fair, computation impaired, language function intact. Mood and affect intermittently labile. LABORATORY DATA: Reviewed. IMPRESSION: Unchanged from initial note. PLAN: Continue current psychotropics and change Celexa to Zoloft 50 mg a day, rest unchanged. MAN Sunny MATHEWS MD DR: IAN/elvis JOB#: [id number] / [id number]
--- NOTE | 2017-07-31 12:01 | PN ---
DATE: 07/28/2017 This is a late entry, 07/28/2017, covers elements, not covered in my initial note, 07/28/2017. SUBJECTIVE: I met with the patient evening of 07/28/2017. This is a redictation requested by medical records. The patient has been sexually inappropriate masturbating, asking female patients to touch his penis. We will start him on Provera 2.5 mg a day if approved by Dr. Tang. Ambulation impaired, in wheelchair and he has a Edmundo lift. No CV, , pulmonary, eye system symptoms on review. I addressed these sexually inappropriate behaviors that he minimizes, denies. MENTAL STATUS EXAM: Oriented to himself and situation. Speech coherent, has some latency. Abstraction fair, computation impaired, language function intact, attention span short. Mood and affect remain somewhat labile. LABORATORY DATA: Reviewed. IMPRESSION: Unchanged from initial note. Major neurocognitive disorder, Alzheimer, vascular with delusion, depression. PLAN: Continue rest, unchanged. Add Provera. MAN Sunny MATHEWS MD DR: IAN/elvis JOB#: [id number] / [id number]
[2017-07-31] MEDS: DONEPEZIL HCL 10 MG TABLET PO SCH (19:49)
[2017-07-31] MEDS: MELATONIN 3 MG TABLET PO SCH (19:49)
[2017-07-31] MEDS: INSULIN GLARGINE 300 UNITS/3 ML INSULN.PEN. SQ SCH (19:59)
--- NOTE | 2017-07-31 20:58 | PDOC ---
Exam Note: Eddie Note: Please also refer to the separate dictated note~for this date of service dictated separately.~Patient seen individually. Discussed the patient with Nursing staff reviewed the chart.~Reviewed interim history and current functioning. Reviewed vital signs,~Labs/ Radiology~and current medications noted below. Continue current treatment with the changes noted in the dictated addendum note Assessment: Vital Signs: Vital Signs Date Time Temp Pulse Resp B/P (MAP) Pulse Ox O2 Delivery O2 Flow Rate FiO2 07/31/17 08:07 73 120/60 07/31/17 06:25 98.3 18 96 07/30/17 06:46 Room Air I&O Intake and Output 07/31/17 07:00 Intake Total 1200 ml Balance 1200 ml Intake Oral 1200 ml # Voids 1 Labs: Laboratory Tests Test 07/31/17 07:13 07/31/17 11:29 07/31/17 16:03 07/31/17 19:18 Glucose (Fingerstick) 120 mg/dL (70-99) H 189 mg/dL (70-99) H 155 mg/dL (70-99) H 179 mg/dL (70-99) H Current Medications: Meds: Current Medications Acetaminophen (Tylenol) 650 mg PRN Q6HRS PRN PO PAIN / TEMP; Start 07/25/17 at 19:45 Multi-Ingredient Ointment (Analgesic [place]) 1 nelson PRN QID PRN TP MUSCLE PAIN; Start 07/25/17 at 19:45 Al Hydroxide/Mg Hydroxide (Mylanta Plus Xs) 15 ml PRN AFTMEALHC PRN PO DYSPEPSIA; Start 07/25/17 at 19:45 Magnesium Hydroxide (Milk Of Magnesia) 2,400 mg PRN QHS PRN PO CONSTIPATION; Start 07/25/17 at 19:45 Donepezil HCl (Aricept) 10 mg QHS PO Last administered on 07/31/17at 19:49; Start 07/25/17 at 22:00 Citalopram Hydrobromide (CeleXA) 40 mg DAILYWSUP PO Last administered on at 16:31; Start 07/26/17 at 17:00; Stop 07/27/17 at 18:10; Status DC Melatonin 6 mg QHS PO Last administered on 07/31/17at 19:49; Start 07/25/17 at 22:00 Acetaminophen/ Hydrocodone Bitart (Lortab 5/325) 1 tab PRN Q6HRS PRN PO PAIN; Start 07/25/17 at 21:45 Insulin Glargine (Lantus) 5 units QHS SQ Last administered on 07/31/17at 19:59; Start 07/25/17 at 21:00 Insulin Human Lispro (HumaLOG) 2 units QIDACHS SQ Last administered on at 20:00; Start 07/25/17 at 21:00 Insulin Human Lispro (HumaLOG) 100 units QIDACHS SQ ; Start 07/26/17 at 07:30; Stop 07/26/17 at 07:30; Status DC Levothyroxine Sodium (Synthroid) 75 mcg DAILYAC PO Last administered on 08:45; Start 07/26/17 at 07:30; Stop 07/26/17 at 11:21; Status DC Lisinopril (Prinivil) 5 mg DAILY PO Last administered on 07/29/17 07:59; Start 07/26/17 at 09:00 Ondansetron HCl (Zofran Odt) 4 mg PRN Q8HRS PRN PO NAUSEA/VOMITING; Start 07/25 at 21:45 Polyethylene Glycol (miraLAX) 17 gm PRN DAILY PRN PO CONSTIPATION; Start at 21:45 Meclizine HCl (Antivert) 25 mg BID PO Last administered on 07/31/17at 19:49; Start 07/25/17 at 22:15 Insulin Human Lispro (HumaLOG) 0-12 UNITS QIDACHS SQ ; Start 07/25/17 at 21:00 Dextrose 12.5 gm PRN Q15MIN PRN IV SEE COMMENTS; Start 07/25/17 at 22:00 Bupropion HCl (Wellbutrin Xl) 150 mg DAILY PO Last administered on 07/31/17at 08 :07; Start 07/26/17 at 09:00 Levothyroxine Sodium (Synthroid) 75 mcg DAILY06 PO Last administered on at 05:39; Start 07/27/17 at 06:00 Cyanocobalamin (Vitamin B-12) 1,000 mcg WEEKLY IM ; Start 08/02/17 at 09:00 Vitamin D (Vitamin D3) 50,000 unit WEEKLY PO Last administered on 07/26/17at 21: 19; Start 07/26/17 at 19:00 Sertraline HCl (Zoloft) 50 mg DAILY PO Last administered on 07/31/17at 08:08; Start 07/28/17 at 09:00 Olanzapine (ZyPREXA ZYDIS) 1.25 mg PRN Q2HR PRN PO ANXIETY / AGITATION; Start 07/27/17 at 18:15 Ropinirole HCl (Requip) 0.25 mg TID PO Last administered on 07/31/17at 19:49; Start 07/28/17 at 21:00 Medroxyprogesterone Acetate (Provera) 2.5 mg DAILY PO Last administered on 07/31at 08:07; Start 07/29/17 at 09:00; Stop 07/31/17 at 17:51; Status DC Medroxyprogesterone Acetate (Provera) 5 mg DAILY PO ; Start 08/01/17 at 09:00 Primidone (Mysoline) 25 mg DAILY PO ; Start 08/01/17 at 09:00 Active Scripts Active Reported Wellbutrin Xl (Bupropion Hcl) 150 Mg Tab.er.24h 150 Mg PO DAILY Lantus Solostar (Insulin Glargine,Hum.rec.anlog) 100 Unit/1 Ml Insuln.pen 5 Unit SQ QHS Humalog (Insulin Lispro) 100 Unit/1 Ml Insuln.pen 2 Unit SQ QIDACHS Humalog (Insulin Lispro) 100 Unit/1 Ml Insuln.pen 0-12 Unit SQ QIDACHS Sliding scale before meals and at bedtime: >200= 4 units >300= 8 units >400= 12 units and call doctor Hydrocodone-Apap 5-325 (Hydrocodone Bit/Acetaminophen) 1 Each Tablet 1 Tab PO PRN Q6HRS PRN Levothyroxine Sodium 75 Mcg Tablet 75 Mcg PO DAILYAC Lisinopril 5 Mg Tablet 5 Mg PO DAILY Zofran Odt (Ondansetron) 4 Mg Tab.rapdis 4 Mg PO PRN Q8HRS PRN Miralax (Polyethylene Glycol 3350) 17 Gm Powd.pack 17 Gm PO PRN DAILY PRN Meclizine Hcl 25 Mg Tablet 25 Mg PO BID Melatonin 3 Mg Tablet 6 Mg PO QHS Donepezil Hcl 10 Mg Tablet 10 Mg PO QHS Escitalopram Oxalate 20 Mg Tablet 20 Mg PO DAILYWSUP I have reviewed the current psychotropics carefully including drug interactions. Risk benefit ratio favors no change other than as noted in my dictated progress note. Diagnosis: Problems: (1) Anxiety disorder (2) Impulse control disorder (3) Dementia, vascular, with depression (4) Dementia, vascular, with delusions (5) Dementia in Alzheimer's disease with depression (6) Dementia in Alzheimer's disease with delusions TEZ MATHEWS MD Jul 31, 2017 20:58
--- NOTE | 2017-08-01 00:45 | PN ---
DATE: 07/30/2017 PSYCHIATRIC PROGRESS NOTE This is a late entry 07/30/2017, covers elements not covered in my initial note 07/30/2017. SUBJECTIVE: I met with the patient evening of 07/30/2017. The patient slept 6 hours previous evening. He had a good day, was somewhat anxious, restless the previous night. No sexually inappropriate behaviors noted. REVIEW OF SYSTEMS: Ambulation impaired, in wheelchair. No CV, , pulmonary, eye, ENT system symptoms on review. MENTAL STATUS EXAM: Oriented to himself and situation. Speech moderate latency, often responses monosyllabic. Abstraction fair, computation impaired, language function intact, attention span short. Mood and affect remain somewhat anxious at times. LABORATORY DATA: Reviewed. IMPRESSION: Unchanged from initial note. PLAN: Continue psychotropics mentioned in my initial note. MAN Sunny MATHEWS MD DR: IAN/elvis JOB#: [id number] / [id number]
[2017-08-01] MEDS: LEVOTHYROXINE 75 MCG TABLET PO SCH (05:40)
[2017-08-01 06:25] VITALS: BP 111/68
[2017-08-01] MEDS: INSULIN LISPRO 300 UNITS/3 ML INSULN.PEN. SQ SCH ×8 (07:30→19:52)
[2017-08-01] MEDS: LISINOPRIL 5 MG TABLET. PO SCH (08:16)
[2017-08-01] MEDS: SERTRALINE 50 MG TABLET. PO SCH (08:16)
[2017-08-01] MEDS: buPROPion XL 150 MG TAB.ER.24H PO SCH (08:16)
[2017-08-01] MEDS: rOPINIRole 0.25 MG TABLET. PO SCH ×3 (08:17→19:49)
[2017-08-01] MEDS: MECLIZINE 12.5 MG TABLET. PO SCH ×2 (08:17→19:49)
[2017-08-01] MEDS: PRIMIDONE 50 MG TABLET PO SCH (08:21)
[2017-08-01 15:57] VITALS: BP 91/56
[2017-08-01] MEDS: DONEPEZIL HCL 10 MG TABLET PO SCH (19:49)
[2017-08-01] MEDS: MELATONIN 3 MG TABLET PO SCH (19:49)
[2017-08-01] MEDS: INSULIN GLARGINE 300 UNITS/3 ML INSULN.PEN. SQ SCH (19:51)
--- NOTE | 2017-08-01 20:36 | PDOC ---
Exam Note: Eddie Note: Please also refer to the separate dictated note~for this date of service dictated separately.~Patient seen individually. Discussed the patient with Nursing staff reviewed the chart.~Reviewed interim history and current functioning. Reviewed vital signs,~Labs/ Radiology~and current medications noted below. Continue current treatment with the changes noted in the dictated addendum note Assessment: Vital Signs: Vital Signs Date Time Temp Pulse Resp B/P (MAP) Pulse Ox O2 Delivery O2 Flow Rate FiO2 08/01/17 15:57 97.5 73 18 91/56 (68) 99 07/30/17 06:46 Room Air I&O Intake and Output 08/01/17 07:00 Intake Total 1320 ml Balance 1320 ml Intake Oral 1320 ml # Voids 1 # Bowel Movements 2 Labs: Laboratory Tests Test 08/01/17 07:53 08/01/17 11:37 08/01/17 17:07 Glucose (Fingerstick) 109 mg/dL (70-99) H 169 mg/dL (70-99) H 125 mg/dL (70-99) H Current Medications: Meds: Current Medications Acetaminophen (Tylenol) 650 mg PRN Q6HRS PRN PO PAIN / TEMP; Start 07/25/17 at 19:45 Multi-Ingredient Ointment (Analgesic [place]) 1 nelson PRN QID PRN TP MUSCLE PAIN; Start 07/25/17 at 19:45 Al Hydroxide/Mg Hydroxide (Mylanta Plus Xs) 15 ml PRN AFTMEALHC PRN PO DYSPEPSIA; Start 07/25/17 at 19:45 Magnesium Hydroxide (Milk Of Magnesia) 2,400 mg PRN QHS PRN PO CONSTIPATION; Start 07/25/17 at 19:45 Donepezil HCl (Aricept) 10 mg QHS PO Last administered on 08/01/17at 19:49; Start 07/25/17 at 22:00 Citalopram Hydrobromide (CeleXA) 40 mg DAILYWSUP PO Last administered on at 16:31; Start 07/26/17 at 17:00; Stop 07/27/17 at 18:10; Status DC Melatonin 6 mg QHS PO Last administered on 08/01/17at 19:49; Start 07/25/17 at 22:00 Acetaminophen/ Hydrocodone Bitart (Lortab 5/325) 1 tab PRN Q6HRS PRN PO PAIN; Start 07/25/17 at 21:45 Insulin Glargine (Lantus) 5 units QHS SQ Last administered on 08/01/17 19:51; Start 07/25/17 at 21:00 Insulin Human Lispro (HumaLOG) 2 units QIDACHS SQ Last administered on 19:52; Start 07/25/17 at 21:00 Insulin Human Lispro (HumaLOG) 100 units QIDACHS SQ ; Start 07/26/17 at 07:30; Stop 07/26/17 at 07:30; Status DC Levothyroxine Sodium (Synthroid) 75 mcg DAILYAC PO Last administered on 08:45; Start 07/26/17 at 07:30; Stop 07/26/17 at 11:21; Status DC Lisinopril (Prinivil) 5 mg DAILY PO Last administered on 08/01/17 08:16; Start 07/26/17 at 09:00 Ondansetron HCl (Zofran Odt) 4 mg PRN Q8HRS PRN PO NAUSEA/VOMITING; Start 07/25 at 21:45 Polyethylene Glycol (miraLAX) 17 gm PRN DAILY PRN PO CONSTIPATION; Start at 21:45 Meclizine HCl (Antivert) 25 mg BID PO Last administered on 08/01/17at 19:49; Start 07/25/17 at 22:15 Insulin Human Lispro (HumaLOG) 0-12 UNITS QIDACHS SQ ; Start 07/25/17 at 21:00 Dextrose 12.5 gm PRN Q15MIN PRN IV SEE COMMENTS; Start 07/25/17 at 22:00 Bupropion HCl (Wellbutrin Xl) 150 mg DAILY PO Last administered on 08/01/17 08 :16; Start 07/26/17 at 09:00 Levothyroxine Sodium (Synthroid) 75 mcg DAILY06 PO Last administered on at 05:40; Start 07/27/17 at 06:00 Cyanocobalamin (Vitamin B-12) 1,000 mcg WEEKLY IM ; Start 08/02/17 at 09:00 Vitamin D (Vitamin D3) 50,000 unit WEEKLY PO Last administered on 07/26/17at 21: 19; Start 07/26/17 at 19:00 Sertraline HCl (Zoloft) 50 mg DAILY PO Last administered on 08/01/17at 08:16; Start 07/28/17 at 09:00 Olanzapine (ZyPREXA ZYDIS) 1.25 mg PRN Q2HR PRN PO ANXIETY / AGITATION; Start 07/27/17 at 18:15 Ropinirole HCl (Requip) 0.25 mg TID PO Last administered on 08/01/17at 19:49; Start 07/28/17 at 21:00 Medroxyprogesterone Acetate (Provera) 2.5 mg DAILY PO Last administered on 07/31at 08:07; Start 07/29/17 at 09:00; Stop 07/31/17 at 17:51; Status DC Medroxyprogesterone Acetate (Provera) 5 mg DAILY PO Last administered on at 08:21; Start 08/01/17 at 09:00 Primidone (Mysoline) 25 mg DAILY PO Last administered on 08/01/17at 08:21; Start 08/01/17 at 09:00 Active Scripts Active Reported Wellbutrin Xl (Bupropion Hcl) 150 Mg Tab.er.24h 150 Mg PO DAILY Lantus Solostar (Insulin Glargine,Hum.rec.anlog) 100 Unit/1 Ml Insuln.pen 5 Unit SQ QHS Humalog (Insulin Lispro) 100 Unit/1 Ml Insuln.pen 2 Unit SQ QIDACHS Humalog (Insulin Lispro) 100 Unit/1 Ml Insuln.pen 0-12 Unit SQ QIDACHS Sliding scale before meals and at bedtime: >200= 4 units >300= 8 units >400= 12 units and call doctor Hydrocodone-Apap 5-325 (Hydrocodone Bit/Acetaminophen) 1 Each Tablet 1 Tab PO PRN Q6HRS PRN Levothyroxine Sodium 75 Mcg Tablet 75 Mcg PO DAILYAC Lisinopril 5 Mg Tablet 5 Mg PO DAILY Zofran Odt (Ondansetron) 4 Mg Tab.rapdis 4 Mg PO PRN Q8HRS PRN Miralax (Polyethylene Glycol 3350) 17 Gm Powd.pack 17 Gm PO PRN DAILY PRN Meclizine Hcl 25 Mg Tablet 25 Mg PO BID Melatonin 3 Mg Tablet 6 Mg PO QHS Donepezil Hcl 10 Mg Tablet 10 Mg PO QHS Escitalopram Oxalate 20 Mg Tablet 20 Mg PO DAILYWSUP I have reviewed the current psychotropics carefully including drug interactions. Risk benefit ratio favors no change other than as noted in my dictated progress note. Diagnosis: Problems: (1) Anxiety disorder (2) Impulse control disorder (3) Dementia, vascular, with depression (4) Dementia, vascular, with delusions (5) Dementia in Alzheimer's disease with depression (6) Dementia in Alzheimer's disease with delusions TEZ MATHEWS MD Aug 01, 2017 20:36
[2017-08-02] MEDS: LEVOTHYROXINE 75 MCG TABLET PO SCH (05:06)
[2017-08-02 06:19] VITALS: BP 135/67
[2017-08-02] MEDS: INSULIN LISPRO 300 UNITS/3 ML INSULN.PEN. SQ SCH ×8 (07:30→20:32)
[2017-08-02 08:47] VITALS: BP 133/59
[2017-08-02] MEDS: PRIMIDONE 50 MG TABLET PO SCH (08:47)
[2017-08-02] MEDS: rOPINIRole 0.25 MG TABLET. PO SCH ×3 (08:47→20:29)
[2017-08-02] MEDS: buPROPion XL 150 MG TAB.ER.24H PO SCH (08:49)
[2017-08-02] MEDS: LISINOPRIL 5 MG TABLET. PO SCH (08:49)
[2017-08-02] MEDS: MECLIZINE 12.5 MG TABLET. PO SCH ×2 (08:49→20:29)
[2017-08-02] MEDS: SERTRALINE 50 MG TABLET. PO SCH (08:49)
[2017-08-02] MEDS: CHOLECALCIFEROL (VITAMIN D3) 50,000 UNIT CAPSULE PO SCH (08:51)
[2017-08-02] MEDS: CYANOCOBALAMIN (VITAMIN B-12) 1,000 MCG/ML VIAL IM SCH (08:51)
--- NOTE | 2017-08-02 10:09 | PN ---
DATE: 07/31/2017 This is a late entry for 07/31/2017, covers elements not covered in my initial note 07/31/2017. SUBJECTIVE: I met with the patient in the evening of 07/31/2017. Overall, the patient has been demanding, irritable at times, wants nursing staff at his figueroa and call per nursing report. He continues to be sexually inappropriate at times. REVIEW OF SYSTEMS: Ambulation impaired, in wheelchair, and he is a Edmundo lift. No CV, , pulmonary, eye system symptoms on review. MENTAL STATUS EXAM: Oriented to himself and situation. Speech has some latency, coherent. Abstraction fair, computation impaired, language function intact, attention span short. Mood and affect remain somewhat anxious, labile. He is forgetful. LABORATORY DATA: Reviewed. IMPRESSION: Major neurocognitive disorder, Alzheimer, vascular with delusion, depression Rest unchanged. PLAN: Increase Provera to 5 mg a day for his sexually inappropriate behaviors continue, rest unchanged for now. MAN Sunny MATHEWS MD DR: IAN/elvis JOB#: [id number] / [id number]
[2017-08-02 16:41] VITALS: BP 107/69
[2017-08-02] MEDS: MELATONIN 3 MG TABLET PO SCH (20:28)
[2017-08-02] MEDS: DONEPEZIL HCL 10 MG TABLET PO SCH (20:29)
[2017-08-02] MEDS: INSULIN GLARGINE 300 UNITS/3 ML INSULN.PEN. SQ SCH (20:32)
--- NOTE | 2017-08-02 21:21 | PDOC ---
Exam Note: Eddie Note: Please also refer to the separate dictated note~for this date of service dictated separately.~Patient seen individually. Discussed the patient with Nursing staff reviewed the chart.~Reviewed interim history and current functioning. Reviewed vital signs,~Labs/ Radiology~and current medications noted below. Continue current treatment with the changes noted in the dictated addendum note Assessment: Vital Signs: Vital Signs Date Time Temp Pulse Resp B/P (MAP) Pulse Ox O2 Delivery O2 Flow Rate FiO2 08/02/17 16:41 96.0 80 19 107/69 (82) 99 07/30/17 06:46 Room Air I&O Intake and Output 08/02/17 07:00 Intake Total 1320 ml Balance 1320 ml Intake Oral 1200 ml Tube Feeding 120 ml # Voids 1 Labs: Laboratory Tests Test 08/02/17 07:14 08/02/17 11:34 08/02/17 16:37 08/02/17 19:40 Glucose (Fingerstick) 89 mg/dL (70-99) 179 mg/dL (70-99) H 114 mg/dL (70-99) H 187 mg/dL (70-99) H Current Medications: Meds: Current Medications Acetaminophen (Tylenol) 650 mg PRN Q6HRS PRN PO PAIN / TEMP; Start 07/25/17 at 19:45 Multi-Ingredient Ointment (Analgesic [place]) 1 nelson PRN QID PRN TP MUSCLE PAIN; Start 07/25/17 at 19:45 Al Hydroxide/Mg Hydroxide (Mylanta Plus Xs) 15 ml PRN AFTMEALHC PRN PO DYSPEPSIA; Start 07/25/17 at 19:45 Magnesium Hydroxide (Milk Of Magnesia) 2,400 mg PRN QHS PRN PO CONSTIPATION; Start 07/25/17 at 19:45 Donepezil HCl (Aricept) 10 mg QHS PO Last administered on 08/02/17at 20:29; Start 07/25/17 at 22:00 Citalopram Hydrobromide (CeleXA) 40 mg DAILYWSUP PO Last administered on at 16:31; Start 07/26/17 at 17:00; Stop 07/27/17 at 18:10; Status DC Melatonin 6 mg QHS PO Last administered on 08/02/17at 20:28; Start 07/25/17 at 22:00 Acetaminophen/ Hydrocodone Bitart (Lortab 5/325) 1 tab PRN Q6HRS PRN PO PAIN; Start 07/25/17 at 21:45 Insulin Glargine (Lantus) 5 units QHS SQ Last administered on 08/02/17at 20:32; Start 07/25/17 at 21:00 Insulin Human Lispro (HumaLOG) 2 units QIDACHS SQ Last administered on at 20:31; Start 07/25/17 at 21:00 Insulin Human Lispro (HumaLOG) 100 units QIDACHS SQ ; Start 07/26/17 at 07:30; Stop 07/26/17 at 07:30; Status DC Levothyroxine Sodium (Synthroid) 75 mcg DAILYAC PO Last administered on at 08:45; Start 07/26/17 at 07:30; Stop 07/26/17 at 11:21; Status DC Lisinopril (Prinivil) 5 mg DAILY PO Last administered on 08/02/17at 08:49; Start 07/26/17 at 09:00 Ondansetron HCl (Zofran Odt) 4 mg PRN Q8HRS PRN PO NAUSEA/VOMITING; Start 07/25 at 21:45 Polyethylene Glycol (miraLAX) 17 gm PRN DAILY PRN PO CONSTIPATION; Start at 21:45 Meclizine HCl (Antivert) 25 mg BID PO Last administered on 08/02/17at 20:29; Start 07/25/17 at 22:15 Insulin Human Lispro (HumaLOG) 0-12 UNITS QIDACHS SQ ; Start 07/25/17 at 21:00 Dextrose 12.5 gm PRN Q15MIN PRN IV SEE COMMENTS; Start 07/25/17 at 22:00 Bupropion HCl (Wellbutrin Xl) 150 mg DAILY PO Last administered on 08/02/17at 08 :49; Start 07/26/17 at 09:00; Stop 08/02/17 at 19:03; Status DC Levothyroxine Sodium (Synthroid) 75 mcg DAILY06 PO Last administered on at 05:06; Start 07/27/17 at 06:00 Cyanocobalamin (Vitamin B-12) 1,000 mcg WEEKLY IM Last administered on at 08:51; Start 08/02/17 at 09:00 Vitamin D (Vitamin D3) 50,000 unit WEEKLY PO Last administered on 08/02/17at 08: 51; Start 07/26/17 at 19:00 Sertraline HCl (Zoloft) 50 mg DAILY PO Last administered on 08/02/17at 08:49; Start 07/28/17 at 09:00 Olanzapine (ZyPREXA ZYDIS) 1.25 mg PRN Q2HR PRN PO ANXIETY / AGITATION; Start 07/27/17 at 18:15 Ropinirole HCl (Requip) 0.25 mg TID PO Last administered on 08/02/17at 20:29; Start 07/28/17 at 21:00 Medroxyprogesterone Acetate (Provera) 2.5 mg DAILY PO Last administered on 07/31at 08:07; Start 07/29/17 at 09:00; Stop 07/31/17 at 17:51; Status DC Medroxyprogesterone Acetate (Provera) 5 mg DAILY PO Last administered on at 08:46; Start 08/01/17 at 09:00; Stop 08/03/17 at 09:00 Primidone (Mysoline) 25 mg DAILY PO Last administered on 08/02/17at 08:47; Start 08/01/17 at 09:00 Medroxyprogesterone Acetate (Provera) 7.5 mg DAILY PO ; Start 08/03/17 at 09:00 Quetiapine Fumarate (SEROquel) 12.5 mg DAILY PO ; Start 08/03/17 at 09:00 Active Scripts Active Reported Wellbutrin Xl (Bupropion Hcl) 150 Mg Tab.er.24h 150 Mg PO DAILY Lantus Solostar (Insulin Glargine,Hum.rec.anlog) 100 Unit/1 Ml Insuln.pen 5 Unit SQ QHS Humalog (Insulin Lispro) 100 Unit/1 Ml Insuln.pen 2 Unit SQ QIDACHS Humalog (Insulin Lispro) 100 Unit/1 Ml Insuln.pen 0-12 Unit SQ QIDACHS Sliding scale before meals and at bedtime: >200= 4 units >300= 8 units >400= 12 units and call doctor Hydrocodone-Apap 5-325 (Hydrocodone Bit/Acetaminophen) 1 Each Tablet 1 Tab PO PRN Q6HRS PRN Levothyroxine Sodium 75 Mcg Tablet 75 Mcg PO DAILYAC Lisinopril 5 Mg Tablet 5 Mg PO DAILY Zofran Odt (Ondansetron) 4 Mg Tab.rapdis 4 Mg PO PRN Q8HRS PRN Miralax (Polyethylene Glycol 3350) 17 Gm Powd.pack 17 Gm PO PRN DAILY PRN Meclizine Hcl 25 Mg Tablet 25 Mg PO BID Melatonin 3 Mg Tablet 6 Mg PO QHS Donepezil Hcl 10 Mg Tablet 10 Mg PO QHS Escitalopram Oxalate 20 Mg Tablet 20 Mg PO DAILYWSUP I have reviewed the current psychotropics carefully including drug interactions. Risk benefit ratio favors no change other than as noted in my dictated progress note. Diagnosis: Problems: (1) Anxiety disorder (2) Impulse control disorder (3) Dementia, vascular, with depression (4) Dementia, vascular, with delusions (5) Dementia in Alzheimer's disease with depression (6) Dementia in Alzheimer's disease with delusions TEZ MATHEWS MD Aug 02, 2017 21:21
[2017-08-03] MEDS: LEVOTHYROXINE 75 MCG TABLET PO SCH (05:48)
[2017-08-03 06:06] VITALS: BP 129/59
[2017-08-03] MEDS: INSULIN LISPRO 300 UNITS/3 ML INSULN.PEN. SQ SCH ×8 (07:30→20:05)
[2017-08-03] MEDS: MECLIZINE 12.5 MG TABLET. PO SCH ×2 (08:11→19:59)
[2017-08-03] MEDS: rOPINIRole 0.25 MG TABLET. PO SCH ×4 (08:11→19:59)
[2017-08-03] MEDS: SERTRALINE 50 MG TABLET. PO SCH (08:11)
[2017-08-03] MEDS: LISINOPRIL 5 MG TABLET. PO SCH (08:12)
[2017-08-03] MEDS: PRIMIDONE 50 MG TABLET PO SCH (08:12)
[2017-08-03] MEDS ORDERED: QUEtiapine 25 MG TABLET. PO SCH (09:00)
[2017-08-03 16:37] VITALS: BP 143/74
[2017-08-03] MEDS: MELATONIN 3 MG TABLET PO SCH (19:59)
[2017-08-03] MEDS: DONEPEZIL HCL 10 MG TABLET PO SCH (19:59)
[2017-08-03] MEDS: INSULIN GLARGINE 300 UNITS/3 ML INSULN.PEN. SQ SCH (20:03)
--- NOTE | 2017-08-03 23:08 | PDOC ---
Exam Note: Eddie Note: Please also refer to the separate dictated note~for this date of service dictated separately.~Patient seen individually. Discussed the patient with Nursing staff reviewed the chart.~Reviewed interim history and current functioning. Reviewed vital signs,~Labs/ Radiology~and current medications noted below. Continue current treatment with the changes noted in the dictated addendum note Assessment: Vital Signs: Vital Signs Date Time Temp Pulse Resp B/P (MAP) Pulse Ox O2 Delivery O2 Flow Rate FiO2 08/03/17 16:37 97.1 66 24 143/74 (97) 100 07/30/17 06:46 Room Air I&O Intake and Output 08/03/17 07:00 Intake Total 1200 ml Balance 1200 ml Intake Oral 1200 ml # Bowel Movements 4 Labs: Laboratory Tests Test 08/03/17 07:34 08/03/17 11:09 08/03/17 16:37 08/03/17 19:23 Glucose (Fingerstick) 130 mg/dL (70-99) H 143 mg/dL (70-99) H 135 mg/dL (70-99) H 160 mg/dL (70-99) H Current Medications: Meds: Current Medications Acetaminophen (Tylenol) 650 mg PRN Q6HRS PRN PO PAIN / TEMP; Start 07/25/17 at 19:45 Multi-Ingredient Ointment (Analgesic [place]) 1 nelson PRN QID PRN TP MUSCLE PAIN; Start 07/25/17 at 19:45 Al Hydroxide/Mg Hydroxide (Mylanta Plus Xs) 15 ml PRN AFTMEALHC PRN PO DYSPEPSIA; Start 07/25/17 at 19:45 Magnesium Hydroxide (Milk Of Magnesia) 2,400 mg PRN QHS PRN PO CONSTIPATION; Start 07/25/17 at 19:45 Donepezil HCl (Aricept) 10 mg QHS PO Last administered on 08/03/17at 19:59; Start 07/25/17 at 22:00 Citalopram Hydrobromide (CeleXA) 40 mg DAILYWSUP PO Last administered on at 16:31; Start 07/26/17 at 17:00; Stop 07/27/17 at 18:10; Status DC Melatonin 6 mg QHS PO Last administered on 08/03/17at 19:59; Start 07/25/17 at 22:00 Acetaminophen/ Hydrocodone Bitart (Lortab 5/325) 1 tab PRN Q6HRS PRN PO PAIN; Start 07/25/17 at 21:45 Insulin Glargine (Lantus) 5 units QHS SQ Last administered on 08/03/17at 20:03; Start 07/25/17 at 21:00 Insulin Human Lispro (HumaLOG) 2 units QIDACHS SQ Last administered on at 20:05; Start 07/25/17 at 21:00 Insulin Human Lispro (HumaLOG) 100 units QIDACHS SQ ; Start 07/26/17 at 07:30; Stop 07/26/17 at 07:30; Status DC Levothyroxine Sodium (Synthroid) 75 mcg DAILYAC PO Last administered on at 08:45; Start 07/26/17 at 07:30; Stop 07/26/17 at 11:21; Status DC Lisinopril (Prinivil) 5 mg DAILY PO Last administered on 08/03/17at 08:12; Start 07/26/17 at 09:00 Ondansetron HCl (Zofran Odt) 4 mg PRN Q8HRS PRN PO NAUSEA/VOMITING; Start 07/25 at 21:45 Polyethylene Glycol (miraLAX) 17 gm PRN DAILY PRN PO CONSTIPATION; Start at 21:45 Meclizine HCl (Antivert) 25 mg BID PO Last administered on 08/03/17at 19:59; Start 07/25/17 at 22:15 Insulin Human Lispro (HumaLOG) 0-12 UNITS QIDACHS SQ ; Start 07/25/17 at 21:00 Dextrose 12.5 gm PRN Q15MIN PRN IV SEE COMMENTS; Start 07/25/17 at 22:00 Bupropion HCl (Wellbutrin Xl) 150 mg DAILY PO Last administered on 08/02/17at 08 :49; Start 07/26/17 at 09:00; Stop 08/02/17 at 19:03; Status DC Levothyroxine Sodium (Synthroid) 75 mcg DAILY06 PO Last administered on at 05:48; Start 07/27/17 at 06:00 Cyanocobalamin (Vitamin B-12) 1,000 mcg WEEKLY IM Last administered on 08:51; Start 08/02/17 at 09:00 Vitamin D (Vitamin D3) 50,000 unit WEEKLY PO Last administered on 08/02/17at 08: 51; Start 07/26/17 at 19:00 Sertraline HCl (Zoloft) 50 mg DAILY PO Last administered on 08/03/17at 08:11; Start 07/28/17 at 09:00 Olanzapine (ZyPREXA ZYDIS) 1.25 mg PRN Q2HR PRN PO ANXIETY / AGITATION; Start 07/27/17 at 18:15 Ropinirole HCl (Requip) 0.25 mg TID PO Last administered on 08/03/17at 19:59; Start 07/28/17 at 21:00 Medroxyprogesterone Acetate (Provera) 2.5 mg DAILY PO Last administered on 07/31at 08:07; Start 07/29/17 at 09:00; Stop 07/31/17 at 17:51; Status DC Medroxyprogesterone Acetate (Provera) 5 mg DAILY PO Last administered on at 08:46; Start 08/01/17 at 09:00; Stop 08/03/17 at 08:10; Status DC Primidone (Mysoline) 25 mg DAILY PO Last administered on 08/03/17at 08:12; Start 08/01/17 at 09:00 Medroxyprogesterone Acetate (Provera) 7.5 mg DAILY PO Last administered on 08/03at 08:11; Start 08/03/17 at 09:00 Quetiapine Fumarate (SEROquel) 12.5 mg DAILY PO Last administered on 08/03/17at 08:13; Start 08/03/17 at 09:00; Stop 08/03/17 at 19:05; Status DC Quetiapine Fumarate (SEROquel) 12.5 mg TID@0900,1300,1700 PO ; Start 08/04/17 at 09:00 Active Scripts Active Reported Wellbutrin Xl (Bupropion Hcl) 150 Mg Tab.er.24h 150 Mg PO DAILY Lantus Solostar (Insulin Glargine,Hum.rec.anlog) 100 Unit/1 Ml Insuln.pen 5 Unit SQ QHS Humalog (Insulin Lispro) 100 Unit/1 Ml Insuln.pen 2 Unit SQ QIDACHS Humalog (Insulin Lispro) 100 Unit/1 Ml Insuln.pen 0-12 Unit SQ QIDACHS Sliding scale before meals and at bedtime: >200= 4 units >300= 8 units >400= 12 units and call doctor Hydrocodone-Apap 5-325 (Hydrocodone Bit/Acetaminophen) 1 Each Tablet 1 Tab PO PRN Q6HRS PRN Levothyroxine Sodium 75 Mcg Tablet 75 Mcg PO DAILYAC Lisinopril 5 Mg Tablet 5 Mg PO DAILY Zofran Odt (Ondansetron) 4 Mg Tab.rapdis 4 Mg PO PRN Q8HRS PRN Miralax (Polyethylene Glycol 3350) 17 Gm Powd.pack 17 Gm PO PRN DAILY PRN Meclizine Hcl 25 Mg Tablet 25 Mg PO BID Melatonin 3 Mg Tablet 6 Mg PO QHS Donepezil Hcl 10 Mg Tablet 10 Mg PO QHS Escitalopram Oxalate 20 Mg Tablet 20 Mg PO DAILYWSUP I have reviewed the current psychotropics carefully including drug interactions. Risk benefit ratio favors no change other than as noted in my dictated progress note. Diagnosis: Problems: (1) Anxiety disorder (2) Impulse control disorder (3) Dementia, vascular, with depression (4) Dementia, vascular, with delusions (5) Dementia in Alzheimer's disease with depression (6) Dementia in Alzheimer's disease with delusions TEZ MATHEWS MD Aug 03, 2017 23:08
[2017-08-04] MEDS: LEVOTHYROXINE 75 MCG TABLET PO SCH (06:24)
[2017-08-04 06:50] VITALS: BP 116/58
[2017-08-04] MEDS: INSULIN LISPRO 300 UNITS/3 ML INSULN.PEN. SQ SCH ×8 (07:30→21:55)
[2017-08-04] MEDS: PRIMIDONE 50 MG TABLET PO SCH (08:31)
[2017-08-04] MEDS: rOPINIRole 0.25 MG TABLET. PO SCH ×3 (08:31→19:45)
[2017-08-04] MEDS: MECLIZINE 12.5 MG TABLET. PO SCH ×2 (08:31→19:45)
[2017-08-04] MEDS: QUEtiapine 25 MG TABLET. PO SCH ×3 (08:33→17:51)
[2017-08-04] MEDS: SERTRALINE 50 MG TABLET. PO SCH (08:33)
[2017-08-04] MEDS: LISINOPRIL 5 MG TABLET. PO SCH (09:00)
[2017-08-04 10:13] LABS: BASO # 0.1 x10^3/uL (0.0-0.2); BASO % 1 % (0-3); EOS # 0.4 x10^3/uL (0.0-0.7); EOS % 5 % (0-3); HEMATOCRIT 33.6 % (39.0-53.0); HEMOGLOBIN 11.2 g/dL (13.0-17.5); LYMPH # 1.2 x10^3/uL (1.0-4.8); LYMPH % 16 % (24-48); MEAN CORPUSCULAR HEMOGLOBIN 33 pg (25-35); MEAN CORPUSCULAR HGB CONC 34 g/dL (31-37); MEAN CORPUSCULAR VOLUME 98 fL (79-100); MONO # 0.6 x10^3/uL (0.0-1.1); MONO % 8 % (0-9); NEUT # 4.9 x10^3uL (1.8-7.7); NEUT % 69 % (31-73); PLATELET COUNT 302 x10^3/uL (140-400); RED BLOOD COUNT 3.41 x10^6/uL (4.30-5.70); RED CELL DISTRIBUTION WIDTH 14.2 % (11.5-14.5); WHITE BLOOD COUNT 7.2 x10^3/uL (4.0-11.0)
[2017-08-04 10:29] LABS: ALBUMIN 3.1 g/dL (3.4-5.0); ALBUMIN/GLOBULIN RATIO 0.9 (1.0-1.7); CALCIUM 8.4 mg/dL (8.5-10.1); CREATININE 1.1 mg/dL (0.7-1.3); GFR 64.4; POTASSIUM 4.5 mmol/L (3.5-5.1); TOTAL BILIRUBIN 0.4 mg/dL (0.2-1.0); TOTAL PROTEIN 6.4 g/dL (6.4-8.2)
[2017-08-04 17:53] VITALS: BP 125/65
--- NOTE | 2017-08-04 18:48 | PN ---
DATE: 08/01/2017 This is a late entry 06/03/2017, covers elements not covered in my initial note 08/01/2017. SUBJECTIVE: I met with the patient evening of 08/01/2017. The patient has been sexually inappropriate during shower time asking the nursing staff to you hold his urinal, implying other things beyond that per nursing report. He minimizes, denies this as I processed it with him. REVIEW OF SYSTEMS: Ambulation impaired, in wheelchair. No CV, , pulmonary, eye, ENT system symptoms on review. MENTAL STATUS EXAM: Oriented to himself and situation. Speech has some latency, coherent. Abstraction fair, computation impaired, language function intact, attention span short. Mood and affect remains somewhat withdrawn at times, other times labile. LABORATORY DATA: Reviewed. IMPRESSION: Unchanged from initial note. PLAN: Continue psychotropics mentioned in my initial note, Provera will be increased, may need to add Depakote as a mood stabilizer. We will see how he does over the next day or so. MAN Sunny MATHEWS MD DR: IAN/elvis JOB#: [id number] / [id number]
[2017-08-04] MEDS: DONEPEZIL HCL 10 MG TABLET PO SCH (19:45)
[2017-08-04] MEDS: MELATONIN 3 MG TABLET PO SCH (19:46)
[2017-08-04] MEDS: DIVALPROEX ER 500 MG TAB.ER.24H PO SCH (19:49)
--- NOTE | 2017-08-04 21:56 | PN ---
DATE: 08/02/2017 PSYCHIATRIC PROGRESS NOTE This is a late entry for 08/02/2017, covers elements not covered in my initial note of 08/02/2017. SUBJECTIVE: The patient was staffed at a treatment team meeting with the entire team in the morning, seen individually in the evening. He is quite noncompliant, sexually inappropriate, exposes himself to another demented female patient. Discussed his upcoming gallbladder surgery next week and whether we would be able to have him discharged in time for this. REVIEW OF SYSTEMS: Ambulation impaired, in wheelchair. No CV, , pulmonary, eye, ENT system symptoms on review. MENTAL STATUS EXAM: Oriented to himself and situation. Speech has some latency, coherent. Abstraction fair, computation impaired, language function intact. Mood and affect remains somewhat labile. Little insight into his behaviors as I processed with him. LABORATORY DATA: Reviewed. IMPRESSION: Unchanged from initial note. PLAN: Start Seroquel 12.5 mg at 9:00 a.m., stop the Wellbutrin since it could worsen the agitation. Continue rest unchanged. We will increase Provera gradually. MAN Sunny MATHEWS MD DR: IAN/elvis JOB#: [id number] / [id number]
[2017-08-04] MEDS: INSULIN GLARGINE 300 UNITS/3 ML INSULN.PEN. SQ SCH (21:57)
--- NOTE | 2017-08-04 22:46 | PDOC ---
Exam Note: Eddie Note: Please also refer to the separate dictated note~for this date of service dictated separately.~Patient seen individually. Discussed the patient with Nursing staff reviewed the chart.~Reviewed interim history and current functioning. Reviewed vital signs,~Labs/ Radiology~and current medications noted below. Continue current treatment with the changes noted in the dictated addendum note Assessment: Vital Signs: Vital Signs Date Time Temp Pulse Resp B/P (MAP) Pulse Ox O2 Delivery O2 Flow Rate FiO2 08/04/17 17:53 98.0 69 20 125/65 (85) 98 07/30/17 06:46 Room Air I&O Intake and Output 08/04/17 07:00 Intake Total 840 ml Balance 840 ml Intake Oral 840 ml # Bowel Movements 3 Labs: Laboratory Tests Test 08/04/17 07:16 08/04/17 10:02 08/04/17 11:45 08/04/17 16:43 Glucose (Fingerstick) 94 mg/dL (70-99) 152 mg/dL (70-99) H 111 mg/dL (70-99) H White Blood Count 7.2 x10^3/uL (4.0-11.0) Red Blood Count 3.41 x10^6/uL (4.30-5.70) L Hemoglobin 11.2 g/dL (13.0-17.5) L Hematocrit 33.6 % (39.0-53.0) L Mean Corpuscular Volume 98 fL (79-100) Mean Corpuscular Hemoglobin 33 pg (25-35) Mean Corpuscular Hemoglobin Concent 34 g/dL (31-37) Red Cell Distribution Width 14.2 % (11.5-14.5) Platelet Count 302 x10^3/uL (140-400) Neutrophils (%) (Auto) 69 % (31-73) Lymphocytes (%) (Auto) 16 % (24-48) L Monocytes (%) (Auto) 8 % (0-9) Eosinophils (%) (Auto) 5 % (0-3) H Basophils (%) (Auto) 1 % (0-3) Neutrophils # (Auto) 4.9 x10^3uL (1.8-7.7) Lymphocytes # (Auto) 1.2 x10^3/uL (1.0-4.8) Monocytes # (Auto) 0.6 x10^3/uL (0.0-1.1) Eosinophils # (Auto) 0.4 x10^3/uL (0.0-0.7) Basophils # (Auto) 0.1 x10^3/uL (0.0-0.2) Sodium Level 136 mmol/L (136-145) Potassium Level 4.5 mmol/L (3.5-5.1) Chloride Level 103 mmol/L (98-107) Carbon Dioxide Level 29 mmol/L (21-32) Anion Gap 4 (6-14) L Blood Urea Nitrogen 18 mg/dL (8-26) Creatinine 1.1 mg/dL (0.7-1.3) Estimated GFR (Cockcroft-Gault) 64.4 BUN/Creatinine Ratio 16 (6-20) Glucose Level 202 mg/dL (70-99) H Calcium Level 8.4 mg/dL (8.5-10.1) L Total Bilirubin 0.4 mg/dL (0.2-1.0) Aspartate Amino Transferase (AST) 19 U/L (15-37) Alanine Aminotransferase (ALT) 22 U/L (16-63) Alkaline Phosphatase 103 U/L (46-116) Total Protein 6.4 g/dL (6.4-8.2) Albumin 3.1 g/dL (3.4-5.0) L Albumin/Globulin Ratio 0.9 (1.0-1.7) L Current Medications: Meds: Current Medications Acetaminophen (Tylenol) 650 mg PRN Q6HRS PRN PO PAIN / TEMP; Start 07/25/17 at 19:45 Multi-Ingredient Ointment (Analgesic [place]) 1 nelson PRN QID PRN TP MUSCLE PAIN; Start 07/25/17 at 19:45 Al Hydroxide/Mg Hydroxide (Mylanta Plus Xs) 15 ml PRN AFTMEALHC PRN PO DYSPEPSIA; Start 07/25/17 at 19:45 Magnesium Hydroxide (Milk Of Magnesia) 2,400 mg PRN QHS PRN PO CONSTIPATION; Start 07/25/17 at 19:45 Donepezil HCl (Aricept) 10 mg QHS PO Last administered on 08/04/17at 19:45; Start 07/25/17 at 22:00 Citalopram Hydrobromide (CeleXA) 40 mg DAILYWSUP PO Last administered on 16:31; Start 07/26/17 at 17:00; Stop 07/27/17 at 18:10; Status DC Melatonin 6 mg QHS PO Last administered on 08/04/17at 19:46; Start 07/25/17 at 22:00 Acetaminophen/ Hydrocodone Bitart (Lortab 5/325) 1 tab PRN Q6HRS PRN PO PAIN; Start 07/25/17 at 21:45 Insulin Glargine (Lantus) 5 units QHS SQ Last administered on 08/04/17at 21:57; Start 07/25/17 at 21:00 Insulin Human Lispro (HumaLOG) 2 units QIDACHS SQ Last administered on 21:55; Start 07/25/17 at 21:00 Insulin Human Lispro (HumaLOG) 100 units QIDACHS SQ ; Start 07/26/17 at 07:30; Stop 07/26/17 at 07:30; Status DC Levothyroxine Sodium (Synthroid) 75 mcg DAILYAC PO Last administered on 08:45; Start 07/26/17 at 07:30; Stop 07/26/17 at 11:21; Status DC Lisinopril (Prinivil) 5 mg DAILY PO Last administered on 08/03/17at 08:12; Start 07/26/17 at 09:00 Ondansetron HCl (Zofran Odt) 4 mg PRN Q8HRS PRN PO NAUSEA/VOMITING; Start 07/25 at 21:45 Polyethylene Glycol (miraLAX) 17 gm PRN DAILY PRN PO CONSTIPATION; Start at 21:45 Meclizine HCl (Antivert) 25 mg BID PO Last administered on 08/04/17 19:45; Start 07/25/17 at 22:15 Insulin Human Lispro (HumaLOG) 0-12 UNITS QIDACHS SQ ; Start 07/25/17 at 21:00 Dextrose 12.5 gm PRN Q15MIN PRN IV SEE COMMENTS; Start 07/25/17 at 22:00 Bupropion HCl (Wellbutrin Xl) 150 mg DAILY PO Last administered on 08/02/17at 08 :49; Start 07/26/17 at 09:00; Stop 08/02/17 at 19:03; Status DC Levothyroxine Sodium (Synthroid) 75 mcg DAILY06 PO Last administered on at 06:24; Start 07/27/17 at 06:00 Cyanocobalamin (Vitamin B-12) 1,000 mcg WEEKLY IM Last administered on at 08:51; Start 08/02/17 at 09:00 Vitamin D (Vitamin D3) 50,000 unit WEEKLY PO Last administered on 08/02/17at 08: 51; Start 07/26/17 at 19:00 Sertraline HCl (Zoloft) 50 mg DAILY PO Last administered on 08/04/17 08:33; Start 07/28/17 at 09:00 Olanzapine (ZyPREXA ZYDIS) 1.25 mg PRN Q2HR PRN PO ANXIETY / AGITATION; Start 07/27/17 at 18:15 Ropinirole HCl (Requip) 0.25 mg TID PO Last administered on 08/04/17at 19:45; Start 07/28/17 at 21:00 Medroxyprogesterone Acetate (Provera) 2.5 mg DAILY PO Last administered on 07/31at 08:07; Start 07/29/17 at 09:00; Stop 07/31/17 at 17:51; Status DC Medroxyprogesterone Acetate (Provera) 5 mg DAILY PO Last administered on at 08:46; Start 08/01/17 at 09:00; Stop 08/03/17 at 08:10; Status DC Primidone (Mysoline) 25 mg DAILY PO Last administered on 08/04/17at 08:31; Start 08/01/17 at 09:00 Medroxyprogesterone Acetate (Provera) 7.5 mg DAILY PO Last administered on 08/04 08:31; Start 08/03/17 at 09:00 Quetiapine Fumarate (SEROquel) 12.5 mg DAILY PO Last administered on 08/03/17at 08:13; Start 08/03/17 at 09:00; Stop 08/03/17 at 19:05; Status DC Quetiapine Fumarate (SEROquel) 12.5 mg TID@0900,1300,1700 PO Last administered on 08/04/17at 17:51; Start 08/04/17 at 09:00 Divalproex Sodium (Depakote Er) 500 mg QHS PO Last administered on 08/04/17at 19 :49; Start 08/04/17 at 21:00 Active Scripts Active Reported Wellbutrin Xl (Bupropion Hcl) 150 Mg Tab.er.24h 150 Mg PO DAILY Lantus Solostar (Insulin Glargine,Hum.rec.anlog) 100 Unit/1 Ml Insuln.pen 5 Unit SQ QHS Humalog (Insulin Lispro) 100 Unit/1 Ml Insuln.pen 2 Unit SQ QIDACHS Humalog (Insulin Lispro) 100 Unit/1 Ml Insuln.pen 0-12 Unit SQ QIDACHS Sliding scale before meals and at bedtime: >200= 4 units >300= 8 units >400= 12 units and call doctor Hydrocodone-Apap 5-325 (Hydrocodone Bit/Acetaminophen) 1 Each Tablet 1 Tab PO PRN Q6HRS PRN Levothyroxine Sodium 75 Mcg Tablet 75 Mcg PO DAILYAC Lisinopril 5 Mg Tablet 5 Mg PO DAILY Zofran Odt (Ondansetron) 4 Mg Tab.rapdis 4 Mg PO PRN Q8HRS PRN Miralax (Polyethylene Glycol 3350) 17 Gm Powd.pack 17 Gm PO PRN DAILY PRN Meclizine Hcl 25 Mg Tablet 25 Mg PO BID Melatonin 3 Mg Tablet 6 Mg PO QHS Donepezil Hcl 10 Mg Tablet 10 Mg PO QHS Escitalopram Oxalate 20 Mg Tablet 20 Mg PO DAILYWSUP I have reviewed the current psychotropics carefully including drug interactions. Risk benefit ratio favors no change other than as noted in my dictated progress note. Diagnosis: Problems: (1) Anxiety disorder (2) Impulse control disorder (3) Dementia, vascular, with depression (4) Dementia, vascular, with delusions (5) Dementia in Alzheimer's disease with depression (6) Dementia in Alzheimer's disease with delusions TEZ MATHEWS MD Aug 04, 2017 22:46
[2017-08-05] MEDS: LEVOTHYROXINE 75 MCG TABLET PO SCH (05:42)
[2017-08-05 06:28] VITALS: BP 147/71
[2017-08-05] MEDS: INSULIN LISPRO 300 UNITS/3 ML INSULN.PEN. SQ SCH ×8 (08:12→21:22)
[2017-08-05] MEDS: MECLIZINE 12.5 MG TABLET. PO SCH ×2 (08:13→20:36)
[2017-08-05] MEDS: PRIMIDONE 50 MG TABLET PO SCH (08:13)
[2017-08-05] MEDS: LISINOPRIL 5 MG TABLET. PO SCH (08:14)
[2017-08-05] MEDS: QUEtiapine 25 MG TABLET. PO SCH ×3 (08:15→17:12)
[2017-08-05] MEDS: SERTRALINE 50 MG TABLET. PO SCH (08:15)
[2017-08-05] MEDS: rOPINIRole 0.25 MG TABLET. PO SCH ×3 (08:15→20:36)
[2017-08-05 16:27] VITALS: BP 104/55
[2017-08-05] MEDS: MELATONIN 3 MG TABLET PO SCH (20:36)
[2017-08-05] MEDS: DIVALPROEX ER 500 MG TAB.ER.24H PO SCH (20:37)
[2017-08-05] MEDS: DONEPEZIL HCL 10 MG TABLET PO SCH (20:37)
[2017-08-05] MEDS: INSULIN GLARGINE 300 UNITS/3 ML INSULN.PEN. SQ SCH (21:23)
--- NOTE | 2017-08-05 22:30 | PDOC ---
Exam Note: Eddie Note: Please also refer to the separate dictated note~for this date of service dictated separately.~Patient seen individually. Discussed the patient with Nursing staff reviewed the chart.~Reviewed interim history and current functioning. Reviewed vital signs,~Labs/ Radiology~and current medications noted below. Continue current treatment with the changes noted in the dictated addendum note Assessment: Vital Signs: Vital Signs Date Time Temp Pulse Resp B/P (MAP) Pulse Ox O2 Delivery O2 Flow Rate FiO2 08/05/17 16:27 97.7 75 17 104/55 (71) 99 I&O Intake and Output 08/05/17 07:00 Intake Total 1320 ml Balance 1320 ml Intake Oral 1320 ml # Bowel Movements 2 Labs: Laboratory Tests Test 08/05/17 07:38 08/05/17 11:59 08/05/17 16:22 08/05/17 19:32 Glucose (Fingerstick) 94 mg/dL (70-99) 119 mg/dL (70-99) H 141 mg/dL (70-99) H 160 mg/dL (70-99) H Current Medications: Meds: Current Medications Acetaminophen (Tylenol) 650 mg PRN Q6HRS PRN PO PAIN / TEMP Last administered on 08/05/17at 05:46; Start 07/25/17 at 19:45 Multi-Ingredient Ointment (Analgesic [place]) 1 nelson PRN QID PRN TP MUSCLE PAIN; Start 07/25/17 at 19:45 Al Hydroxide/Mg Hydroxide (Mylanta Plus Xs) 15 ml PRN AFTMEALHC PRN PO DYSPEPSIA; Start 07/25/17 at 19:45 Magnesium Hydroxide (Milk Of Magnesia) 2,400 mg PRN QHS PRN PO CONSTIPATION; Start 07/25/17 at 19:45 Donepezil HCl (Aricept) 10 mg QHS PO Last administered on 08/05/17at 20:37; Start 07/25/17 at 22:00 Citalopram Hydrobromide (CeleXA) 40 mg DAILYWSUP PO Last administered on at 16:31; Start 07/26/17 at 17:00; Stop 07/27/17 at 18:10; Status DC Melatonin 6 mg QHS PO Last administered on 08/05/17at 20:36; Start 07/25/17 at 22:00 Acetaminophen/ Hydrocodone Bitart (Lortab 5/325) 1 tab PRN Q6HRS PRN PO PAIN; Start 07/25/17 at 21:45 Insulin Glargine (Lantus) 5 units QHS SQ Last administered on 08/05/17at 21:23; Start 07/25/17 at 21:00 Insulin Human Lispro (HumaLOG) 2 units QIDACHS SQ Last administered on at 21:22; Start 07/25/17 at 21:00 Insulin Human Lispro (HumaLOG) 100 units QIDACHS SQ ; Start 07/26/17 at 07:30; Stop 07/26/17 at 07:30; Status DC Levothyroxine Sodium (Synthroid) 75 mcg DAILYAC PO Last administered on at 08:45; Start 07/26/17 at 07:30; Stop 07/26/17 at 11:21; Status DC Lisinopril (Prinivil) 5 mg DAILY PO Last administered on 08/05/17at 08:14; Start 07/26/17 at 09:00 Ondansetron HCl (Zofran Odt) 4 mg PRN Q8HRS PRN PO NAUSEA/VOMITING; Start 07/25 at 21:45 Polyethylene Glycol (miraLAX) 17 gm PRN DAILY PRN PO CONSTIPATION; Start at 21:45 Meclizine HCl (Antivert) 25 mg BID PO Last administered on 08/05/17at 20:36; Start 07/25/17 at 22:15 Insulin Human Lispro (HumaLOG) 0-12 UNITS QIDACHS SQ ; Start 07/25/17 at 21:00 Dextrose 12.5 gm PRN Q15MIN PRN IV SEE COMMENTS; Start 07/25/17 at 22:00 Bupropion HCl (Wellbutrin Xl) 150 mg DAILY PO Last administered on 08/02/17at 08 :49; Start 07/26/17 at 09:00; Stop 08/02/17 at 19:03; Status DC Levothyroxine Sodium (Synthroid) 75 mcg DAILY06 PO Last administered on at 05:42; Start 07/27/17 at 06:00 Cyanocobalamin (Vitamin B-12) 1,000 mcg WEEKLY IM Last administered on 08:51; Start 08/02/17 at 09:00 Vitamin D (Vitamin D3) 50,000 unit WEEKLY PO Last administered on 08/02/17 08: 51; Start 07/26/17 at 19:00 Sertraline HCl (Zoloft) 50 mg DAILY PO Last administered on 08/05/17 08:15; Start 07/28/17 at 09:00 Olanzapine (ZyPREXA ZYDIS) 1.25 mg PRN Q2HR PRN PO ANXIETY / AGITATION; Start 07/27/17 at 18:15 Ropinirole HCl (Requip) 0.25 mg TID PO Last administered on 08/05/17 20:36; Start 07/28/17 at 21:00 Medroxyprogesterone Acetate (Provera) 2.5 mg DAILY PO Last administered on 07/31at 08:07; Start 07/29/17 at 09:00; Stop 07/31/17 at 17:51; Status DC Medroxyprogesterone Acetate (Provera) 5 mg DAILY PO Last administered on at 08:46; Start 08/01/17 at 09:00; Stop 08/03/17 at 08:10; Status DC Primidone (Mysoline) 25 mg DAILY PO Last administered on 08/05/17 08:13; Start 08/01/17 at 09:00 Medroxyprogesterone Acetate (Provera) 7.5 mg DAILY PO Last administered on 08/05 08:15; Start 08/03/17 at 09:00 Quetiapine Fumarate (SEROquel) 12.5 mg DAILY PO Last administered on 08/03/17 08:13; Start 08/03/17 at 09:00; Stop 08/03/17 at 19:05; Status DC Quetiapine Fumarate (SEROquel) 12.5 mg TID@0900,1300,1700 PO Last administered on 08/05/17 17:12; Start 08/04/17 at 09:00 Divalproex Sodium (Depakote Er) 500 mg QHS PO Last administered on 08/05/17at 20 :37; Start 08/04/17 at 21:00 Active Scripts Active Reported Wellbutrin Xl (Bupropion Hcl) 150 Mg Tab.er.24h 150 Mg PO DAILY Lantus Solostar (Insulin Glargine,Hum.rec.anlog) 100 Unit/1 Ml Insuln.pen 5 Unit SQ QHS Humalog (Insulin Lispro) 100 Unit/1 Ml Insuln.pen 2 Unit SQ QIDACHS Humalog (Insulin Lispro) 100 Unit/1 Ml Insuln.pen 0-12 Unit SQ QIDACHS Sliding scale before meals and at bedtime: >200= 4 units >300= 8 units >400= 12 units and call doctor Hydrocodone-Apap 5-325 (Hydrocodone Bit/Acetaminophen) 1 Each Tablet 1 Tab PO PRN Q6HRS PRN Levothyroxine Sodium 75 Mcg Tablet 75 Mcg PO DAILYAC Lisinopril 5 Mg Tablet 5 Mg PO DAILY Zofran Odt (Ondansetron) 4 Mg Tab.rapdis 4 Mg PO PRN Q8HRS PRN Miralax (Polyethylene Glycol 3350) 17 Gm Powd.pack 17 Gm PO PRN DAILY PRN Meclizine Hcl 25 Mg Tablet 25 Mg PO BID Melatonin 3 Mg Tablet 6 Mg PO QHS Donepezil Hcl 10 Mg Tablet 10 Mg PO QHS Escitalopram Oxalate 20 Mg Tablet 20 Mg PO DAILYWSUP I have reviewed the current psychotropics carefully including drug interactions. Risk benefit ratio favors no change other than as noted in my dictated progress note. Diagnosis: Problems: (1) Anxiety disorder (2) Impulse control disorder (3) Dementia, vascular, with depression (4) Dementia, vascular, with delusions (5) Dementia in Alzheimer's disease with depression (6) Dementia in Alzheimer's disease with delusions TEZ MATHEWS MD Aug 05, 2017 22:30
--- NOTE | 2017-08-06 00:40 | PN ---
DATE: 08/03/2017 PSYCHIATRIC PROGRESS NOTE This is a late entry 08/03/2017 covers elements not covered in my initial note. SUBJECTIVE: I met with the patient in the evening. The patient slept 6 hours, grabbing at female, demented patient, sexually exposing himself at times, quite labile. REVIEW OF SYSTEMS: Ambulation impaired, in wheelchair. No CV, , pulmonary, eye system symptoms on review. MENTAL STATUS EXAM: Oriented to himself and situation. Speech has some latency, coherent. Abstraction fair, computation impaired, language function intact, attention span short. Mood and affect somewhat anxious, labile at times. LABORATORY DATA: Reviewed. IMPRESSION: Unchanged from initial note. PLAN: Continue psychotropics mentioned in my initial note, increase Seroquel from 12.5 mg daily to 12.5 mg 3 times a day. Adjust further as clinically indicated. Consider Depakote as a mood stabilizer. MAN Sunny MATHEWS MD DR: IAN/elvis JOB#: [id number] / [id number]
[2017-08-06] MEDS: LEVOTHYROXINE 75 MCG TABLET PO SCH (06:06)
[2017-08-06 06:24] VITALS: BP 138/75
[2017-08-06] MEDS: INSULIN LISPRO 300 UNITS/3 ML INSULN.PEN. SQ SCH ×8 (07:51→21:26)
[2017-08-06] MEDS: MECLIZINE 12.5 MG TABLET. PO SCH ×2 (07:52→21:21)
[2017-08-06] MEDS: LISINOPRIL 5 MG TABLET. PO SCH (07:57)
[2017-08-06] MEDS: PRIMIDONE 50 MG TABLET PO SCH (07:57)
[2017-08-06] MEDS: SERTRALINE 50 MG TABLET. PO SCH (07:58)
[2017-08-06] MEDS: rOPINIRole 0.25 MG TABLET. PO SCH ×3 (07:58→21:21)
[2017-08-06] MEDS: QUEtiapine 25 MG TABLET. PO SCH ×3 (07:58→17:13)
[2017-08-06 16:23] VITALS: BP 125/66
[2017-08-06] MEDS: DONEPEZIL HCL 10 MG TABLET PO SCH (21:21)
[2017-08-06] MEDS: MELATONIN 3 MG TABLET PO SCH (21:22)
[2017-08-06] MEDS: DIVALPROEX ER 500 MG TAB.ER.24H PO SCH (21:22)
[2017-08-06] MEDS: INSULIN GLARGINE 300 UNITS/3 ML INSULN.PEN. SQ SCH (21:24)
--- NOTE | 2017-08-06 21:43 | PDOC ---
Exam Note: Eddie Note: Please also refer to the separate dictated note~for this date of service dictated separately.~Patient seen individually. Discussed the patient with Nursing staff reviewed the chart.~Reviewed interim history and current functioning. Reviewed vital signs,~Labs/ Radiology~and current medications noted below. Continue current treatment with the changes noted in the dictated addendum note Assessment: Vital Signs: Vital Signs Date Time Temp Pulse Resp B/P (MAP) Pulse Ox O2 Delivery O2 Flow Rate FiO2 08/06/17 16:23 97.7 83 18 125/66 (85) 99 I&O Intake and Output 08/06/17 07:00 Intake Total 1320 ml Balance 1320 ml Intake Oral 1320 ml # Voids 4 # Bowel Movements 3 Labs: Laboratory Tests Test 08/06/17 07:21 08/06/17 11:07 08/06/17 16:38 08/06/17 19:20 Glucose (Fingerstick) 96 mg/dL (70-99) 124 mg/dL (70-99) H 127 mg/dL (70-99) H 182 mg/dL (70-99) H Current Medications: Meds: Current Medications Acetaminophen (Tylenol) 650 mg PRN Q6HRS PRN PO PAIN / TEMP Last administered on 08/05/17at 05:46; Start 07/25/17 at 19:45 Multi-Ingredient Ointment (Analgesic [place]) 1 nelson PRN QID PRN TP MUSCLE PAIN; Start 07/25/17 at 19:45 Al Hydroxide/Mg Hydroxide (Mylanta Plus Xs) 15 ml PRN AFTMEALHC PRN PO DYSPEPSIA; Start 07/25/17 at 19:45 Magnesium Hydroxide (Milk Of Magnesia) 2,400 mg PRN QHS PRN PO CONSTIPATION; Start 07/25/17 at 19:45 Donepezil HCl (Aricept) 10 mg QHS PO Last administered on 08/06/17at 21:21; Start 07/25/17 at 22:00 Citalopram Hydrobromide (CeleXA) 40 mg DAILYWSUP PO Last administered on at 16:31; Start 07/26/17 at 17:00; Stop 07/27/17 at 18:10; Status DC Melatonin 6 mg QHS PO Last administered on 08/06/17at 21:22; Start 07/25/17 at 22:00 Acetaminophen/ Hydrocodone Bitart (Lortab 5/325) 1 tab PRN Q6HRS PRN PO PAIN; Start 07/25/17 at 21:45 Insulin Glargine (Lantus) 5 units QHS SQ Last administered on 08/06/17at 21:24; Start 07/25/17 at 21:00 Insulin Human Lispro (HumaLOG) 2 units QIDACHS SQ Last administered on at 21:25; Start 07/25/17 at 21:00 Insulin Human Lispro (HumaLOG) 100 units QIDACHS SQ ; Start 07/26/17 at 07:30; Stop 07/26/17 at 07:30; Status DC Levothyroxine Sodium (Synthroid) 75 mcg DAILYAC PO Last administered on at 08:45; Start 07/26/17 at 07:30; Stop 07/26/17 at 11:21; Status DC Lisinopril (Prinivil) 5 mg DAILY PO Last administered on 08/06/17at 07:57; Start 07/26/17 at 09:00 Ondansetron HCl (Zofran Odt) 4 mg PRN Q8HRS PRN PO NAUSEA/VOMITING; Start 07/25 at 21:45 Polyethylene Glycol (miraLAX) 17 gm PRN DAILY PRN PO CONSTIPATION; Start at 21:45 Meclizine HCl (Antivert) 25 mg BID PO Last administered on 08/06/17at 21:21; Start 07/25/17 at 22:15 Insulin Human Lispro (HumaLOG) 0-12 UNITS QIDACHS SQ ; Start 07/25/17 at 21:00 Dextrose 12.5 gm PRN Q15MIN PRN IV SEE COMMENTS; Start 07/25/17 at 22:00 Bupropion HCl (Wellbutrin Xl) 150 mg DAILY PO Last administered on 08/02/17at 08 :49; Start 07/26/17 at 09:00; Stop 08/02/17 at 19:03; Status DC Levothyroxine Sodium (Synthroid) 75 mcg DAILY06 PO Last administered on at 06:06; Start 07/27/17 at 06:00 Cyanocobalamin (Vitamin B-12) 1,000 mcg WEEKLY IM Last administered on 08:51; Start 08/02/17 at 09:00 Vitamin D (Vitamin D3) 50,000 unit WEEKLY PO Last administered on 08/02/17 08: 51; Start 07/26/17 at 19:00 Sertraline HCl (Zoloft) 50 mg DAILY PO Last administered on 08/06/17 07:58; Start 07/28/17 at 09:00 Olanzapine (ZyPREXA ZYDIS) 1.25 mg PRN Q2HR PRN PO ANXIETY / AGITATION; Start 07/27/17 at 18:15 Ropinirole HCl (Requip) 0.25 mg TID PO Last administered on 08/06/17 21:21; Start 07/28/17 at 21:00 Medroxyprogesterone Acetate (Provera) 2.5 mg DAILY PO Last administered on 07/31 08:07; Start 07/29/17 at 09:00; Stop 07/31/17 at 17:51; Status DC Medroxyprogesterone Acetate (Provera) 5 mg DAILY PO Last administered on 08:46; Start 08/01/17 at 09:00; Stop 08/03/17 at 08:10; Status DC Primidone (Mysoline) 25 mg DAILY PO Last administered on 08/06/17 07:57; Start 08/01/17 at 09:00 Medroxyprogesterone Acetate (Provera) 7.5 mg DAILY PO Last administered on 08/06 07:58; Start 08/03/17 at 09:00 Quetiapine Fumarate (SEROquel) 12.5 mg DAILY PO Last administered on 08/03/17 08:13; Start 08/03/17 at 09:00; Stop 08/03/17 at 19:05; Status DC Quetiapine Fumarate (SEROquel) 12.5 mg TID@0900,1300,1700 PO Last administered on 08/06/17 17:13; Start 08/04/17 at 09:00 Divalproex Sodium (Depakote Er) 500 mg QHS PO Last administered on 08/06/17 21 :22; Start 08/04/17 at 21:00 Active Scripts Active Reported Wellbutrin Xl (Bupropion Hcl) 150 Mg Tab.er.24h 150 Mg PO DAILY Lantus Solostar (Insulin Glargine,Hum.rec.anlog) 100 Unit/1 Ml Insuln.pen 5 Unit SQ QHS Humalog (Insulin Lispro) 100 Unit/1 Ml Insuln.pen 2 Unit SQ QIDACHS Humalog (Insulin Lispro) 100 Unit/1 Ml Insuln.pen 0-12 Unit SQ QIDACHS Sliding scale before meals and at bedtime: >200= 4 units >300= 8 units >400= 12 units and call doctor Hydrocodone-Apap 5-325 (Hydrocodone Bit/Acetaminophen) 1 Each Tablet 1 Tab PO PRN Q6HRS PRN Levothyroxine Sodium 75 Mcg Tablet 75 Mcg PO DAILYAC Lisinopril 5 Mg Tablet 5 Mg PO DAILY Zofran Odt (Ondansetron) 4 Mg Tab.rapdis 4 Mg PO PRN Q8HRS PRN Miralax (Polyethylene Glycol 3350) 17 Gm Powd.pack 17 Gm PO PRN DAILY PRN Meclizine Hcl 25 Mg Tablet 25 Mg PO BID Melatonin 3 Mg Tablet 6 Mg PO QHS Donepezil Hcl 10 Mg Tablet 10 Mg PO QHS Escitalopram Oxalate 20 Mg Tablet 20 Mg PO DAILYWSUP I have reviewed the current psychotropics carefully including drug interactions. Risk benefit ratio favors no change other than as noted in my dictated progress note. Diagnosis: Problems: (1) Anxiety disorder (2) Impulse control disorder (3) Dementia, vascular, with depression (4) Dementia, vascular, with delusions (5) Dementia in Alzheimer's disease with depression (6) Dementia in Alzheimer's disease with delusions TEZ MATHEWS MD Aug 06, 2017 21:43
--- NOTE | 2017-08-07 03:36 | PN ---
DATE: 08/04/2017 PSYCHIATRIC PROGRESS NOTE This is a late entry of 08/04/2017, that covers elements not covered in my initial note of 08/04/2017. SUBJECTIVE: I met with the patient in the evening. The patient slept 7-1/2 hours previous evening, was quite irritable previous night, resistive, urinating on the floor. Continues to have marked mood lability, sexually inappropriate and one of the other patients said he had been coming into her room exposing himself. REVIEW OF SYSTEMS: Ambulation impaired, in wheelchair. No CV, , pulmonary, eye system symptoms on review. MENTAL STATUS EXAM: Oriented to himself and situation. Speech has some latency, coherent. Abstraction fair, computation impaired, language function intact, attention span short. Mood and affect remain somewhat labile. LABORATORY DATA: Reviewed. IMPRESSION: Major neurocognitive disorder, Alzheimer, vascular with delusion, depression, bipolar 1 disorder, unspecified. PLAN: Start Depakote ER 500 mg p.o. at bedtime. Check CBC, CMP, valproic acid level in 3 days. Continue Provera and the rest of the psychotropics per initial note. MAN Sunny MATHEWS MD DR: IAN/elvis JOB#: [id number] / [id number]
--- NOTE | 2017-08-07 05:22 | PN ---
DATE: 08/05/2017 PSYCHIATRIC PROGRESS NOTE This late entry 08/05/2017 covers elements not covered in my initial note 08/05/2017. SUBJECTIVE: I met with the patient in the evening of 08/05/2017. The patient slept 8 hours previous evening. He continues to be quite labile in his mood, sexually inappropriate at times, threatened to drop himself to the floor if the staff did not take him to bed when he wanted them to. REVIEW OF SYSTEMS: Ambulation impaired, in wheelchair. No CV, , pulmonary, eye system symptoms on review. MENTAL STATUS EXAM: Oriented to himself and insight limited, judgment marginal, language function intact, attention span short. Mood and affect remain somewhat labile. LABORATORIES: Reviewed. IMPRESSION: Unchanged from initial note. PLAN: Continue current psychotropics mentioned in my initial note. MAN Sunny MATHEWS MD DR: IAN/elvis JOB#: [id number] / [id number]
[2017-08-07] MEDS: LEVOTHYROXINE 75 MCG TABLET PO SCH (05:40)
[2017-08-07 06:42] VITALS: BP 122/70
[2017-08-07] MEDS: INSULIN LISPRO 300 UNITS/3 ML INSULN.PEN. SQ SCH ×8 (07:30→20:54)
[2017-08-07 08:09] LABS: BASO # 0.1 x10^3/uL (0.0-0.2); BASO % 2 % (0-3); EOS # 0.5 x10^3/uL (0.0-0.7); EOS % 7 % (0-3); HEMATOCRIT 34.3 % (39.0-53.0); HEMOGLOBIN 11.6 g/dL (13.0-17.5); LYMPH # 1.5 x10^3/uL (1.0-4.8); LYMPH % 22 % (24-48); MEAN CORPUSCULAR HEMOGLOBIN 33 pg (25-35); MEAN CORPUSCULAR HGB CONC 34 g/dL (31-37); MEAN CORPUSCULAR VOLUME 98 fL (79-100); MONO # 0.5 x10^3/uL (0.0-1.1); MONO % 7 % (0-9); NEUT # 4.3 x10^3uL (1.8-7.7); NEUT % 62 % (31-73); PLATELET COUNT 333 x10^3/uL (140-400); RED CELL DISTRIBUTION WIDTH 14.3 % (11.5-14.5)
[2017-08-07 08:30] LABS: ALBUMIN 3.1 g/dL (3.4-5.0); ALBUMIN/GLOBULIN RATIO 0.9 (1.0-1.7); ALK PHOS 96 U/L (46-116); ALT (SGPT) 21 U/L (16-63); ANION GAP 7 (6-14); AST (SGOT) 18 U/L (15-37); BLOOD UREA NITROGEN 22 mg/dL (8-26); BUN/CREATININE RATIO 22 (6-20); CALCIUM 8.8 mg/dL (8.5-10.1); CARBON DIOXIDE 28 mmol/L (21-32); CHLORIDE 104 mmol/L (98-107); GFR 71.9; GLUCOSE 107 mg/dL (70-99); POTASSIUM 4.4 mmol/L (3.5-5.1); SODIUM 139 mmol/L (136-145); TOTAL BILIRUBIN 0.4 mg/dL (0.2-1.0); TOTAL PROTEIN 6.6 g/dL (6.4-8.2)
[2017-08-07 08:43] LABS: VAL ACID 18 mcg/mL (50-100)
[2017-08-07] MEDS: LISINOPRIL 5 MG TABLET. PO SCH (09:41)
[2017-08-07] MEDS: rOPINIRole 0.25 MG TABLET. PO SCH ×3 (09:41→20:49)
[2017-08-07] MEDS: SERTRALINE 50 MG TABLET. PO SCH (09:42)
[2017-08-07] MEDS: MECLIZINE 12.5 MG TABLET. PO SCH ×2 (09:42→20:49)
[2017-08-07] MEDS: QUEtiapine 25 MG TABLET. PO SCH ×3 (09:42→16:54)
[2017-08-07] MEDS: PRIMIDONE 50 MG TABLET PO SCH (09:44)
[2017-08-07 16:05] VITALS: BP 142/68
[2017-08-07] MEDS: MELATONIN 3 MG TABLET PO SCH (20:49)
[2017-08-07] MEDS: DONEPEZIL HCL 10 MG TABLET PO SCH (20:49)
[2017-08-07] MEDS: DIVALPROEX ER 500 MG TAB.ER.24H PO SCH (20:50)
[2017-08-07] MEDS: INSULIN GLARGINE 300 UNITS/3 ML INSULN.PEN. SQ SCH (20:54)
--- NOTE | 2017-08-07 21:44 | PDOC ---
Exam Note: Eddie Note: Please also refer to the separate dictated note~for this date of service dictated separately.~Patient seen individually. Discussed the patient with Nursing staff reviewed the chart.~Reviewed interim history and current functioning. Reviewed vital signs,~Labs/ Radiology~and current medications noted below. Continue current treatment with the changes noted in the dictated addendum note Assessment: Vital Signs: Vital Signs Date Time Temp Pulse Resp B/P (MAP) Pulse Ox O2 Delivery O2 Flow Rate FiO2 08/07/17 16:05 97.6 76 24 142/68 (92) 96 I&O Intake and Output 08/07/17 07:00 Intake Total 1280 ml Balance 1280 ml Intake Oral 1280 ml # Voids 1 Labs: Laboratory Tests Test 08/07/17 07:16 08/07/17 07:33 08/07/17 11:17 08/07/17 16:31 Glucose (Fingerstick) 112 mg/dL (70-99) H 195 mg/dL (70-99) H 108 mg/dL (70-99) H White Blood Count 7.0 x10^3/uL (4.0-11.0) Red Blood Count 3.50 x10^6/uL (4.30-5.70) L Hemoglobin 11.6 g/dL (13.0-17.5) L Hematocrit 34.3 % (39.0-53.0) L Mean Corpuscular Volume 98 fL (79-100) Mean Corpuscular Hemoglobin 33 pg (25-35) Mean Corpuscular Hemoglobin Concent 34 g/dL (31-37) Red Cell Distribution Width 14.3 % (11.5-14.5) Platelet Count 333 x10^3/uL (140-400) Neutrophils (%) (Auto) 62 % (31-73) Lymphocytes (%) (Auto) 22 % (24-48) L Monocytes (%) (Auto) 7 % (0-9) Eosinophils (%) (Auto) 7 % (0-3) H Basophils (%) (Auto) 2 % (0-3) Neutrophils # (Auto) 4.3 x10^3uL (1.8-7.7) Lymphocytes # (Auto) 1.5 x10^3/uL (1.0-4.8) Monocytes # (Auto) 0.5 x10^3/uL (0.0-1.1) Eosinophils # (Auto) 0.5 x10^3/uL (0.0-0.7) Basophils # (Auto) 0.1 x10^3/uL (0.0-0.2) Sodium Level 139 mmol/L (136-145) Potassium Level 4.4 mmol/L (3.5-5.1) Chloride Level 104 mmol/L (98-107) Carbon Dioxide Level 28 mmol/L (21-32) Anion Gap 7 (6-14) Blood Urea Nitrogen 22 mg/dL (8-26) Creatinine 1.0 mg/dL (0.7-1.3) Estimated GFR (Cockcroft-Gault) 71.9 BUN/Creatinine Ratio 22 (6-20) H Glucose Level 107 mg/dL (70-99) H Calcium Level 8.8 mg/dL (8.5-10.1) Total Bilirubin 0.4 mg/dL (0.2-1.0) Aspartate Amino Transferase (AST) 18 U/L (15-37) Alanine Aminotransferase (ALT) 21 U/L (16-63) Alkaline Phosphatase 96 U/L (46-116) Total Protein 6.6 g/dL (6.4-8.2) Albumin 3.1 g/dL (3.4-5.0) L Albumin/Globulin Ratio 0.9 (1.0-1.7) L Valproic Acid Level 18 mcg/mL (50-100) L Valproic Acid Last Dose Date 08/06/17 Valproic Acid Last Dose Time 2100 Test 08/07/17 19:22 Glucose (Fingerstick) 152 mg/dL (70-99) H Current Medications: Meds: Current Medications Acetaminophen (Tylenol) 650 mg PRN Q6HRS PRN PO PAIN / TEMP Last administered on 08/05/17at 05:46; Start 07/25/17 at 19:45 Multi-Ingredient Ointment (Analgesic [place]) 1 nelson PRN QID PRN TP MUSCLE PAIN; Start 07/25/17 at 19:45 Al Hydroxide/Mg Hydroxide (Mylanta Plus Xs) 15 ml PRN AFTMEALHC PRN PO DYSPEPSIA; Start 07/25/17 at 19:45 Magnesium Hydroxide (Milk Of Magnesia) 2,400 mg PRN QHS PRN PO CONSTIPATION; Start 07/25/17 at 19:45 Donepezil HCl (Aricept) 10 mg QHS PO Last administered on 08/07/17 20:49; Start 07/25/17 at 22:00 Citalopram Hydrobromide (CeleXA) 40 mg DAILYWSUP PO Last administered on 16:31; Start 07/26/17 at 17:00; Stop 07/27/17 at 18:10; Status DC Melatonin 6 mg QHS PO Last administered on 08/07/17 20:49; Start 07/25/17 at 22 :00 Acetaminophen/ Hydrocodone Bitart (Lortab 5/325) 1 tab PRN Q6HRS PRN PO PAIN; Start 07/25/17 at 21:45 Insulin Glargine (Lantus) 5 units QHS SQ Last administered on 08/07/17 20:54; Start 07/25/17 at 21:00 Insulin Human Lispro (HumaLOG) 2 units QIDACHS SQ Last administered on 20:53; Start 07/25/17 at 21:00 Insulin Human Lispro (HumaLOG) 100 units QIDACHS SQ ; Start 07/26/17 at 07:30; Stop 07/26/17 at 07:30; Status DC Levothyroxine Sodium (Synthroid) 75 mcg DAILYAC PO Last administered on at 08:45; Start 07/26/17 at 07:30; Stop 07/26/17 at 11:21; Status DC Lisinopril (Prinivil) 5 mg DAILY PO Last administered on 08/07/17 09:41; Start 07/26/17 at 09:00 Ondansetron HCl (Zofran Odt) 4 mg PRN Q8HRS PRN PO NAUSEA/VOMITING; Start 07/25 at 21:45 Polyethylene Glycol (miraLAX) 17 gm PRN DAILY PRN PO CONSTIPATION; Start at 21:45 Meclizine HCl (Antivert) 25 mg BID PO Last administered on 08/07/17 20:49; Start 07/25/17 at 22:15 Insulin Human Lispro (HumaLOG) 0-12 UNITS QIDACHS SQ ; Start 07/25/17 at 21:00 Dextrose 12.5 gm PRN Q15MIN PRN IV SEE COMMENTS; Start 07/25/17 at 22:00 Bupropion HCl (Wellbutrin Xl) 150 mg DAILY PO Last administered on 08/02/17at 08 :49; Start 07/26/17 at 09:00; Stop 08/02/17 at 19:03; Status DC Levothyroxine Sodium (Synthroid) 75 mcg DAILY06 PO Last administered on at 05:40; Start 07/27/17 at 06:00 Cyanocobalamin (Vitamin B-12) 1,000 mcg WEEKLY IM Last administered on 08:51; Start 08/02/17 at 09:00 Vitamin D (Vitamin D3) 50,000 unit WEEKLY PO Last administered on 08/02/17at 08: 51; Start 07/26/17 at 19:00 Sertraline HCl (Zoloft) 50 mg DAILY PO Last administered on 08/07/17at 09:42; Start 07/28/17 at 09:00 Olanzapine (ZyPREXA ZYDIS) 1.25 mg PRN Q2HR PRN PO ANXIETY / AGITATION; Start 07/27/17 at 18:15 Ropinirole HCl (Requip) 0.25 mg TID PO Last administered on 08/07/17at 20:49; Start 07/28/17 at 21:00 Medroxyprogesterone Acetate (Provera) 2.5 mg DAILY PO Last administered on 07/31at 08:07; Start 07/29/17 at 09:00; Stop 07/31/17 at 17:51; Status DC Medroxyprogesterone Acetate (Provera) 5 mg DAILY PO Last administered on at 08:46; Start 08/01/17 at 09:00; Stop 08/03/17 at 08:10; Status DC Primidone (Mysoline) 25 mg DAILY PO Last administered on 08/07/17at 09:44; Start 08/01/17 at 09:00 Medroxyprogesterone Acetate (Provera) 7.5 mg DAILY PO Last administered on at 09:40; Start 08/03/17 at 09:00 Quetiapine Fumarate (SEROquel) 12.5 mg DAILY PO Last administered on 08/03/17at 08:13; Start 08/03/17 at 09:00; Stop 08/03/17 at 19:05; Status DC Quetiapine Fumarate (SEROquel) 12.5 mg TID@0900,1300,1700 PO Last administered on 08/07/17at 16:54; Start 08/04/17 at 09:00 Divalproex Sodium (Depakote Er) 500 mg QHS PO Last administered on 08/06/17at 21 :22; Start 08/04/17 at 21:00; Stop 08/07/17 at 18:10; Status DC Divalproex Sodium (Depakote Er) 1,000 mg QHS PO Last administered on 08/07/17at 20:50; Start 08/07/17 at 21:00 Active Scripts Active Reported Wellbutrin Xl (Bupropion Hcl) 150 Mg Tab.er.24h 150 Mg PO DAILY Lantus Solostar (Insulin Glargine,Hum.rec.anlog) 100 Unit/1 Ml Insuln.pen 5 Unit SQ QHS Humalog (Insulin Lispro) 100 Unit/1 Ml Insuln.pen 2 Unit SQ QIDACHS Humalog (Insulin Lispro) 100 Unit/1 Ml Insuln.pen 0-12 Unit SQ QIDACHS Sliding scale before meals and at bedtime: >200= 4 units >300= 8 units >400= 12 units and call doctor Hydrocodone-Apap 5-325 (Hydrocodone Bit/Acetaminophen) 1 Each Tablet 1 Tab PO PRN Q6HRS PRN Levothyroxine Sodium 75 Mcg Tablet 75 Mcg PO DAILYAC Lisinopril 5 Mg Tablet 5 Mg PO DAILY Zofran Odt (Ondansetron) 4 Mg Tab.rapdis 4 Mg PO PRN Q8HRS PRN Miralax (Polyethylene Glycol 3350) 17 Gm Powd.pack 17 Gm PO PRN DAILY PRN Meclizine Hcl 25 Mg Tablet 25 Mg PO BID Melatonin 3 Mg Tablet 6 Mg PO QHS Donepezil Hcl 10 Mg Tablet 10 Mg PO QHS Escitalopram Oxalate 20 Mg Tablet 20 Mg PO DAILYWSUP I have reviewed the current psychotropics carefully including drug interactions. Risk benefit ratio favors no change other than as noted in my dictated progress note. Diagnosis: Problems: (1) Anxiety disorder (2) Impulse control disorder (3) Dementia, vascular, with depression (4) Dementia, vascular, with delusions (5) Dementia in Alzheimer's disease with depression (6) Dementia in Alzheimer's disease with delusions TEZ MATHEWS MD August 07, 2017 21:44
--- NOTE | 2017-08-08 03:31 | PN ---
DATE: 08/06/2017 This is a late entry for 08/06/2017 covers elements not covered in my initial note of 08/06/2017. SUBJECTIVE: I met with the patient in the evening. The patient remains somewhat withdrawn, confused, but sexually inappropriate behaviors seem better. REVIEW OF SYSTEMS: No CV, , pulmonary, eye system symptoms on review. Gait unsteady in wheelchair. MENTAL STATUS EXAM: Oriented to himself and situation. Speech moderate latency, often responses monosyllabic. Abstraction fair, computation impaired, language function intact. Mood and affect somewhat labile at times, withdrawn. LABORATORY DATA: Reviewed. IMPRESSION: Unchanged from initial note. PLAN: Continue current psychotropics. MAN Sunny MATHEWS MD DR: AIN/elvis JOB#: [id number] / [id number]
[2017-08-08] MEDS: LEVOTHYROXINE 75 MCG TABLET PO SCH (05:50)
[2017-08-08 06:22] VITALS: BP 113/62
[2017-08-08] MEDS: INSULIN LISPRO 300 UNITS/3 ML INSULN.PEN. SQ SCH ×8 (09:39→21:08)
[2017-08-08] MEDS: MECLIZINE 12.5 MG TABLET. PO SCH ×2 (09:44→21:06)
[2017-08-08] MEDS: PRIMIDONE 50 MG TABLET PO SCH (09:45)
[2017-08-08] MEDS: SERTRALINE 50 MG TABLET. PO SCH (09:45)
[2017-08-08] MEDS: rOPINIRole 0.25 MG TABLET. PO SCH ×3 (09:45→21:06)
[2017-08-08] MEDS: LISINOPRIL 5 MG TABLET. PO SCH (09:46)
[2017-08-08] MEDS: QUEtiapine 25 MG TABLET. PO SCH ×3 (09:46→17:37)
[2017-08-08 17:03] VITALS: BP 123/53
[2017-08-08] MEDS: DONEPEZIL HCL 10 MG TABLET PO SCH (21:06)
[2017-08-08] MEDS: DIVALPROEX ER 500 MG TAB.ER.24H PO SCH (21:06)
[2017-08-08] MEDS: MELATONIN 3 MG TABLET PO SCH (21:06)
[2017-08-08] MEDS: INSULIN GLARGINE 300 UNITS/3 ML INSULN.PEN. SQ SCH (21:09)
--- NOTE | 2017-08-08 21:10 | PDOC ---
Exam Note: Eddie Note: Please also refer to the separate dictated note~for this date of service dictated separately.~Patient seen individually. Discussed the patient with Nursing staff reviewed the chart.~Reviewed interim history and current functioning. Reviewed vital signs,~Labs/ Radiology~and current medications noted below. Continue current treatment with the changes noted in the dictated addendum note Assessment: Vital Signs: Vital Signs Date Time Temp Pulse Resp B/P (MAP) Pulse Ox O2 Delivery O2 Flow Rate FiO2 08/08/17 17:03 97.6 79 19 123/53 (76) 100 I&O Intake and Output 08/08/17 07:00 Intake Total 600 ml Balance 600 ml Intake Oral 600 ml # Voids 1 # Bowel Movements 2 Labs: Laboratory Tests Test 08/08/17 07:56 08/08/17 11:21 08/08/17 16:20 08/08/17 19:19 Glucose (Fingerstick) 87 mg/dL (70-99) 154 mg/dL (70-99) H 150 mg/dL (70-99) H 150 mg/dL (70-99) H Current Medications: Meds: Current Medications Acetaminophen (Tylenol) 650 mg PRN Q6HRS PRN PO PAIN / TEMP Last administered on 08/05/17at 05:46; Start 07/25/17 at 19:45 Multi-Ingredient Ointment (Analgesic [place]) 1 nelson PRN QID PRN TP MUSCLE PAIN; Start 07/25/17 at 19:45 Al Hydroxide/Mg Hydroxide (Mylanta Plus Xs) 15 ml PRN AFTMEALHC PRN PO DYSPEPSIA; Start 07/25/17 at 19:45 Magnesium Hydroxide (Milk Of Magnesia) 2,400 mg PRN QHS PRN PO CONSTIPATION; Start 07/25/17 at 19:45 Donepezil HCl (Aricept) 10 mg QHS PO Last administered on 08/07/17at 20:49; Start 07/25/17 at 22:00 Citalopram Hydrobromide (CeleXA) 40 mg DAILYWSUP PO Last administered on at 16:31; Start 07/26/17 at 17:00; Stop 07/27/17 at 18:10; Status DC Melatonin 6 mg QHS PO Last administered on 08/07/17at 20:49; Start 07/25/17 at 22 :00 Acetaminophen/ Hydrocodone Bitart (Lortab 5/325) 1 tab PRN Q6HRS PRN PO PAIN; Start 07/25/17 at 21:45 Insulin Glargine (Lantus) 5 units QHS SQ Last administered on 08/07/17at 20:54; Start 07/25/17 at 21:00 Insulin Human Lispro (HumaLOG) 2 units QIDACHS SQ Last administered on at 17:38; Start 07/25/17 at 21:00 Insulin Human Lispro (HumaLOG) 100 units QIDACHS SQ ; Start 07/26/17 at 07:30; Stop 07/26/17 at 07:30; Status DC Levothyroxine Sodium (Synthroid) 75 mcg DAILYAC PO Last administered on at 08:45; Start 07/26/17 at 07:30; Stop 07/26/17 at 11:21; Status DC Lisinopril (Prinivil) 5 mg DAILY PO Last administered on 08/08/17 09:46; Start 07/26/17 at 09:00 Ondansetron HCl (Zofran Odt) 4 mg PRN Q8HRS PRN PO NAUSEA/VOMITING; Start 07/25 at 21:45 Polyethylene Glycol (miraLAX) 17 gm PRN DAILY PRN PO CONSTIPATION; Start at 21:45 Meclizine HCl (Antivert) 25 mg BID PO Last administered on 08/08/17at 09:44; Start 07/25/17 at 22:15 Insulin Human Lispro (HumaLOG) 0-12 UNITS QIDACHS SQ ; Start 07/25/17 at 21:00 Dextrose 12.5 gm PRN Q15MIN PRN IV SEE COMMENTS; Start 07/25/17 at 22:00 Bupropion HCl (Wellbutrin Xl) 150 mg DAILY PO Last administered on 08/02/17at 08 :49; Start 07/26/17 at 09:00; Stop 08/02/17 at 19:03; Status DC Levothyroxine Sodium (Synthroid) 75 mcg DAILY06 PO Last administered on at 05:50; Start 07/27/17 at 06:00 Cyanocobalamin (Vitamin B-12) 1,000 mcg WEEKLY IM Last administered on 08:51; Start 08/02/17 at 09:00 Vitamin D (Vitamin D3) 50,000 unit WEEKLY PO Last administered on 08/02/17 08: 51; Start 07/26/17 at 19:00 Sertraline HCl (Zoloft) 50 mg DAILY PO Last administered on 08/08/17 09:45; Start 07/28/17 at 09:00 Olanzapine (ZyPREXA ZYDIS) 1.25 mg PRN Q2HR PRN PO ANXIETY / AGITATION; Start 07/27/17 at 18:15 Ropinirole HCl (Requip) 0.25 mg TID PO Last administered on 08/08/17 12:27; Start 07/28/17 at 21:00 Medroxyprogesterone Acetate (Provera) 2.5 mg DAILY PO Last administered on 07/31at 08:07; Start 07/29/17 at 09:00; Stop 07/31/17 at 17:51; Status DC Medroxyprogesterone Acetate (Provera) 5 mg DAILY PO Last administered on at 08:46; Start 08/01/17 at 09:00; Stop 08/03/17 at 08:10; Status DC Primidone (Mysoline) 25 mg DAILY PO Last administered on 08/08/17 09:45; Start 08/01/17 at 09:00 Medroxyprogesterone Acetate (Provera) 7.5 mg DAILY PO Last administered on 09:45; Start 08/03/17 at 09:00 Quetiapine Fumarate (SEROquel) 12.5 mg DAILY PO Last administered on 08/03/17at 08:13; Start 08/03/17 at 09:00; Stop 08/03/17 at 19:05; Status DC Quetiapine Fumarate (SEROquel) 12.5 mg TID@0900,1300,1700 PO Last administered on 08/08/17 17:37; Start 08/04/17 at 09:00 Divalproex Sodium (Depakote Er) 500 mg QHS PO Last administered on 08/06/17at 21 :22; Start 08/04/17 at 21:00; Stop 08/07/17 at 18:10; Status DC Divalproex Sodium (Depakote Er) 1,000 mg QHS PO Last administered on 08/07/17at 20:50; Start 08/07/17 at 21:00 Active Scripts Active Reported Wellbutrin Xl (Bupropion Hcl) 150 Mg Tab.er.24h 150 Mg PO DAILY Lantus Solostar (Insulin Glargine,Hum.rec.anlog) 100 Unit/1 Ml Insuln.pen 5 Unit SQ QHS Humalog (Insulin Lispro) 100 Unit/1 Ml Insuln.pen 2 Unit SQ QIDACHS Humalog (Insulin Lispro) 100 Unit/1 Ml Insuln.pen 0-12 Unit SQ QIDACHS Sliding scale before meals and at bedtime: >200= 4 units >300= 8 units >400= 12 units and call doctor Hydrocodone-Apap 5-325 (Hydrocodone Bit/Acetaminophen) 1 Each Tablet 1 Tab PO PRN Q6HRS PRN Levothyroxine Sodium 75 Mcg Tablet 75 Mcg PO DAILYAC Lisinopril 5 Mg Tablet 5 Mg PO DAILY Zofran Odt (Ondansetron) 4 Mg Tab.rapdis 4 Mg PO PRN Q8HRS PRN Miralax (Polyethylene Glycol 3350) 17 Gm Powd.pack 17 Gm PO PRN DAILY PRN Meclizine Hcl 25 Mg Tablet 25 Mg PO BID Melatonin 3 Mg Tablet 6 Mg PO QHS Donepezil Hcl 10 Mg Tablet 10 Mg PO QHS Escitalopram Oxalate 20 Mg Tablet 20 Mg PO DAILYWSUP I have reviewed the current psychotropics carefully including drug interactions. Risk benefit ratio favors no change other than as noted in my dictated progress note. Diagnosis: Problems: (1) Anxiety disorder (2) Impulse control disorder (3) Dementia, vascular, with depression (4) Dementia, vascular, with delusions (5) Dementia in Alzheimer's disease with depression (6) Dementia in Alzheimer's disease with delusions TEZ MATHEWS MD August 08, 2017 21:10
--- NOTE | 2017-08-09 01:26 | PN ---
DATE: 08/07/2017 PSYCHIATRIC PROGRESS NOTE This is a late entry 08/07/2017 covers elements not covered in my initial note of 08/07/2017. I met with the patient in the evening. The patient slept 6-1/4 hours. He was not sexually inappropriate previous evening. Today during the day on 08/07/2017, he was pretending to sleep and withdrawn to his room, acts helpless, does little for himself, confused, felt the year was 1988, but he knew he was at a hospital in [place]. REVIEW OF SYSTEMS: Ambulation impaired, in wheelchair. No CV, , pulmonary, eye, ENT system symptoms on review. Reliability poor. MENTAL STATUS EXAM: Oriented to himself and situation. Speech moderate latency, often responses monosyllabic. Abstraction fair, computation impaired, language function intact. Mood and affect somewhat withdrawn, less labile. LABORATORY DATA: Reviewed. IMPRESSION: Major neurocognitive disorder, Alzheimer, vascular with delusion, depression; anxiety disorder, unspecified; impulse control disorder, unspecified. PLAN: Valproic acid level subtherapeutic at 18 on Depakote ER 500 mg at bedtime. We will increase this to 1 gram p.o. at bedtime. Check CBC, CMP, and valproic acid level in 3 days. Rest of the psychotropics will remain unchanged from initial note. MAN Sunny MATHEWS MD DR: IAN/elvis JOB#: [id number] / [id number]
[2017-08-09] MEDS: LEVOTHYROXINE 75 MCG TABLET PO SCH (05:10)
[2017-08-09 05:51] VITALS: BP 119/71
[2017-08-09] MEDS: INSULIN LISPRO 300 UNITS/3 ML INSULN.PEN. SQ SCH ×8 (08:00→20:06)
[2017-08-09] MEDS: rOPINIRole 0.25 MG TABLET. PO SCH ×3 (09:23→20:01)
[2017-08-09] MEDS: MECLIZINE 12.5 MG TABLET. PO SCH ×2 (09:23→20:02)
[2017-08-09] MEDS: SERTRALINE 50 MG TABLET. PO SCH (09:24)
[2017-08-09] MEDS: QUEtiapine 25 MG TABLET. PO SCH ×3 (09:24→17:56)
[2017-08-09] MEDS: LISINOPRIL 5 MG TABLET. PO SCH (09:24)
[2017-08-09] MEDS: PRIMIDONE 50 MG TABLET PO SCH (09:25)
[2017-08-09] MEDS: CYANOCOBALAMIN (VITAMIN B-12) 1,000 MCG/ML VIAL IM SCH (09:30)
[2017-08-09] MEDS: CHOLECALCIFEROL (VITAMIN D3) 50,000 UNIT CAPSULE PO SCH (09:30)
[2017-08-09 16:36] VITALS: BP 138/73
[2017-08-09] MEDS: MELATONIN 3 MG TABLET PO SCH (20:01)
[2017-08-09] MEDS: DONEPEZIL HCL 10 MG TABLET PO SCH (20:02)
[2017-08-09] MEDS: DIVALPROEX ER 500 MG TAB.ER.24H PO SCH (20:02)
[2017-08-09] MEDS: TAMSULOSIN 0.4 MG CAP.ER.24H. PO SCH (20:03)
[2017-08-09] MEDS: INSULIN GLARGINE 300 UNITS/3 ML INSULN.PEN. SQ SCH (20:05)
--- NOTE | 2017-08-09 21:10 | PDOC ---
Exam Note: Eddie Note: Please also refer to the separate dictated note~for this date of service dictated separately.~Patient seen individually. Discussed the patient with Nursing staff reviewed the chart.~Reviewed interim history and current functioning. Reviewed vital signs,~Labs/ Radiology~and current medications noted below. Continue current treatment with the changes noted in the dictated addendum note Assessment: Vital Signs: Vital Signs Date Time Temp Pulse Resp B/P (MAP) Pulse Ox O2 Delivery O2 Flow Rate FiO2 08/09/17 16:36 97.8 69 19 138/73 (94) 100 I&O Intake and Output 08/09/17 06:59 Intake Total 1680 ml Balance 1680 ml Intake Oral 1680 ml # Voids 1 # Bowel Movements 1 Labs: Laboratory Tests Test 08/09/17 07:30 08/09/17 11:35 08/09/17 16:47 08/09/17 19:01 Glucose (Fingerstick) 162 mg/dL (70-99) H 139 mg/dL (70-99) H 138 mg/dL (70-99) H 145 mg/dL (70-99) H Current Medications: Meds: Current Medications Acetaminophen (Tylenol) 650 mg PRN Q6HRS PRN PO PAIN / TEMP Last administered on 08/05/17at 05:46; Start 07/25/17 at 19:45 Multi-Ingredient Ointment (Analgesic [place]) 1 nelson PRN QID PRN TP MUSCLE PAIN; Start 07/25/17 at 19:45 Al Hydroxide/Mg Hydroxide (Mylanta Plus Xs) 15 ml PRN AFTMEALHC PRN PO DYSPEPSIA; Start 07/25/17 at 19:45 Magnesium Hydroxide (Milk Of Magnesia) 2,400 mg PRN QHS PRN PO CONSTIPATION; Start 07/25/17 at 19:45 Donepezil HCl (Aricept) 10 mg QHS PO Last administered on 08/09/17at 20:02; Start 07/25/17 at 22:00 Citalopram Hydrobromide (CeleXA) 40 mg DAILYWSUP PO Last administered on at 16:31; Start 07/26/17 at 17:00; Stop 07/27/17 at 18:10; Status DC Melatonin 6 mg QHS PO Last administered on 08/09/17at 20:01; Start 07/25/17 at 22 :00 Acetaminophen/ Hydrocodone Bitart (Lortab 5/325) 1 tab PRN Q6HRS PRN PO PAIN; Start 07/25/17 at 21:45 Insulin Glargine (Lantus) 5 units QHS SQ Last administered on 08/09/17 20:05; Start 07/25/17 at 21:00 Insulin Human Lispro (HumaLOG) 2 units QIDACHS SQ Last administered on 20:04; Start 07/25/17 at 21:00 Insulin Human Lispro (HumaLOG) 100 units QIDACHS SQ ; Start 07/26/17 at 07:30; Stop 07/26/17 at 07:30; Status DC Levothyroxine Sodium (Synthroid) 75 mcg DAILYAC PO Last administered on 08:45; Start 07/26/17 at 07:30; Stop 07/26/17 at 11:21; Status DC Lisinopril (Prinivil) 5 mg DAILY PO Last administered on 08/09/17 09:24; Start 07/26/17 at 09:00 Ondansetron HCl (Zofran Odt) 4 mg PRN Q8HRS PRN PO NAUSEA/VOMITING; Start 07/25 at 21:45 Polyethylene Glycol (miraLAX) 17 gm PRN DAILY PRN PO CONSTIPATION; Start at 21:45 Meclizine HCl (Antivert) 25 mg BID PO Last administered on 08/09/17 20:02; Start 07/25/17 at 22:15 Insulin Human Lispro (HumaLOG) 0-12 UNITS QIDACHS SQ ; Start 07/25/17 at 21:00 Dextrose 12.5 gm PRN Q15MIN PRN IV SEE COMMENTS; Start 07/25/17 at 22:00 Bupropion HCl (Wellbutrin Xl) 150 mg DAILY PO Last administered on 08/02/17at 08 :49; Start 07/26/17 at 09:00; Stop 08/02/17 at 19:03; Status DC Levothyroxine Sodium (Synthroid) 75 mcg DAILY06 PO Last administered on 05:10; Start 07/27/17 at 06:00 Cyanocobalamin (Vitamin B-12) 1,000 mcg WEEKLY IM Last administered on 09:30; Start 08/02/17 at 09:00 Vitamin D (Vitamin D3) 50,000 unit WEEKLY PO Last administered on 08/09/17 09: 30; Start 07/26/17 at 19:00 Sertraline HCl (Zoloft) 50 mg DAILY PO Last administered on 08/09/17 09:24; Start 07/28/17 at 09:00 Olanzapine (ZyPREXA ZYDIS) 1.25 mg PRN Q2HR PRN PO ANXIETY / AGITATION; Start 07/27/17 at 18:15 Ropinirole HCl (Requip) 0.25 mg TID PO Last administered on 08/09/17 20:01; Start 07/28/17 at 21:00 Medroxyprogesterone Acetate (Provera) 2.5 mg DAILY PO Last administered on 07/31 08:07; Start 07/29/17 at 09:00; Stop 07/31/17 at 17:51; Status DC Medroxyprogesterone Acetate (Provera) 5 mg DAILY PO Last administered on 08:46; Start 08/01/17 at 09:00; Stop 08/03/17 at 08:10; Status DC Primidone (Mysoline) 25 mg DAILY PO Last administered on 08/09/17 09:25; Start 08/01/17 at 09:00 Medroxyprogesterone Acetate (Provera) 7.5 mg DAILY PO Last administered on 09:24; Start 08/03/17 at 09:00 Quetiapine Fumarate (SEROquel) 12.5 mg DAILY PO Last administered on 08/03/17 08:13; Start 08/03/17 at 09:00; Stop 08/03/17 at 19:05; Status DC Quetiapine Fumarate (SEROquel) 12.5 mg TID@0900,1300,1700 PO Last administered on 08/09/17 17:56; Start 08/04/17 at 09:00 Divalproex Sodium (Depakote Er) 500 mg QHS PO Last administered on 08/06/17 21 :22; Start 08/04/17 at 21:00; Stop 08/07/17 at 18:10; Status DC Divalproex Sodium (Depakote Er) 1,000 mg QHS PO Last administered on 08/09/17at 20:02; Start 08/07/17 at 21:00 Tamsulosin HCl (Flomax) 0.4 mg QHS PO Last administered on 08/09/17at 20:03; Start 08/09/17 at 21:00 Active Scripts Active Reported Wellbutrin Xl (Bupropion Hcl) 150 Mg Tab.er.24h 150 Mg PO DAILY Lantus Solostar (Insulin Glargine,Hum.rec.anlog) 100 Unit/1 Ml Insuln.pen 5 Unit SQ QHS Humalog (Insulin Lispro) 100 Unit/1 Ml Insuln.pen 2 Unit SQ QIDACHS Humalog (Insulin Lispro) 100 Unit/1 Ml Insuln.pen 0-12 Unit SQ QIDACHS Sliding scale before meals and at bedtime: >200= 4 units >300= 8 units >400= 12 units and call doctor Hydrocodone-Apap 5-325 (Hydrocodone Bit/Acetaminophen) 1 Each Tablet 1 Tab PO PRN Q6HRS PRN Levothyroxine Sodium 75 Mcg Tablet 75 Mcg PO DAILYAC Lisinopril 5 Mg Tablet 5 Mg PO DAILY Zofran Odt (Ondansetron) 4 Mg Tab.rapdis 4 Mg PO PRN Q8HRS PRN Miralax (Polyethylene Glycol 3350) 17 Gm Powd.pack 17 Gm PO PRN DAILY PRN Meclizine Hcl 25 Mg Tablet 25 Mg PO BID Melatonin 3 Mg Tablet 6 Mg PO QHS Donepezil Hcl 10 Mg Tablet 10 Mg PO QHS Escitalopram Oxalate 20 Mg Tablet 20 Mg PO DAILYWSUP I have reviewed the current psychotropics carefully including drug interactions. Risk benefit ratio favors no change other than as noted in my dictated progress note. Diagnosis: Problems: (1) Anxiety disorder (2) Impulse control disorder (3) Dementia, vascular, with depression (4) Dementia, vascular, with delusions (5) Dementia in Alzheimer's disease with depression (6) Dementia in Alzheimer's disease with delusions TEZ MATHEWS MD August 09, 2017 21:10
[2017-08-10] MEDS: LEVOTHYROXINE 75 MCG TABLET PO SCH (05:59)
[2017-08-10 06:18] VITALS: BP 102/50
[2017-08-10] MEDS: INSULIN LISPRO 300 UNITS/3 ML INSULN.PEN. SQ SCH ×8 (07:54→21:00)
[2017-08-10] MEDS: MECLIZINE 12.5 MG TABLET. PO SCH ×2 (08:01→20:53)
[2017-08-10] MEDS: QUEtiapine 25 MG TABLET. PO SCH ×3 (08:02→17:25)
[2017-08-10] MEDS: PRIMIDONE 50 MG TABLET PO SCH (08:02)
[2017-08-10] MEDS: rOPINIRole 0.25 MG TABLET. PO SCH ×3 (08:02→20:54)
[2017-08-10] MEDS: LISINOPRIL 5 MG TABLET. PO SCH (08:03)
[2017-08-10] MEDS: SERTRALINE 50 MG TABLET. PO SCH (08:03)
[2017-08-10 08:23] LABS: BASO # 0.1 x10^3/uL (0.0-0.2); BASO % 1 % (0-3); EOS # 0.5 x10^3/uL (0.0-0.7); EOS % 7 % (0-3); HEMATOCRIT 34.7 % (39.0-53.0); HEMOGLOBIN 11.5 g/dL (13.0-17.5); LYMPH # 1.7 x10^3/uL (1.0-4.8); LYMPH % 23 % (24-48); MEAN CORPUSCULAR HEMOGLOBIN 33 pg (25-35); MEAN CORPUSCULAR HGB CONC 33 g/dL (31-37); MEAN CORPUSCULAR VOLUME 99 fL (79-100); MONO # 0.6 x10^3/uL (0.0-1.1); MONO % 8 % (0-9); NEUT # 4.6 x10^3uL (1.8-7.7); NEUT % 61 % (31-73); PLATELET COUNT 302 x10^3/uL (140-400); RED CELL DISTRIBUTION WIDTH 14.1 % (11.5-14.5); WHITE BLOOD COUNT 7.6 x10^3/uL (4.0-11.0)
[2017-08-10 08:32] LABS: ALBUMIN 3.1 g/dL (3.4-5.0); ALBUMIN/GLOBULIN RATIO 0.9 (1.0-1.7); ALK PHOS 89 U/L (46-116); ALT (SGPT) 19 U/L (16-63); ANION GAP 7 (6-14); AST (SGOT) 14 U/L (15-37); BLOOD UREA NITROGEN 23 mg/dL (8-26); BUN/CREATININE RATIO 21 (6-20); CALCIUM 8.7 mg/dL (8.5-10.1); CARBON DIOXIDE 28 mmol/L (21-32); CHLORIDE 105 mmol/L (98-107); CREATININE 1.1 mg/dL (0.7-1.3); GFR 64.4; GLUCOSE 121 mg/dL (70-99); POTASSIUM 4.8 mmol/L (3.5-5.1); SODIUM 140 mmol/L (136-145); TOTAL BILIRUBIN 0.4 mg/dL (0.2-1.0); TOTAL PROTEIN 6.7 g/dL (6.4-8.2)
[2017-08-10 08:36] LABS: VAL ACID 52 mcg/mL (50-100)
[2017-08-10 16:07] VITALS: BP 119/56
[2017-08-10] MEDS: DONEPEZIL HCL 10 MG TABLET PO SCH (20:53)
[2017-08-10] MEDS: MELATONIN 3 MG TABLET PO SCH (20:53)
[2017-08-10] MEDS: TAMSULOSIN 0.4 MG CAP.ER.24H. PO SCH (20:53)
[2017-08-10] MEDS: DIVALPROEX ER 500 MG TAB.ER.24H PO SCH (20:53)
[2017-08-10] MEDS: INSULIN GLARGINE 300 UNITS/3 ML INSULN.PEN. SQ SCH (21:00)
--- NOTE | 2017-08-10 21:16 | PDOC ---
Exam Note: Eddie Note: Please also refer to the separate dictated note~for this date of service dictated separately.~Patient seen individually. Discussed the patient with Nursing staff reviewed the chart.~Reviewed interim history and current functioning. Reviewed vital signs,~Labs/ Radiology~and current medications noted below. Continue current treatment with the changes noted in the dictated addendum note Assessment: Vital Signs: Vital Signs Date Time Temp Pulse Resp B/P (MAP) Pulse Ox O2 Delivery O2 Flow Rate FiO2 08/10/17 16:07 98.3 72 18 119/56 (77) 98 08/10/17 06:18 Room Air I&O Intake and Output 08/10/17 07:00 Intake Total 1320 ml Balance 1320 ml Intake Oral 1320 ml # Voids 1 Labs: Laboratory Tests Test 08/10/17 07:40 08/10/17 11:13 08/10/17 17:12 08/10/17 19:28 White Blood Count 7.6 x10^3/uL (4.0-11.0) Red Blood Count 3.50 x10^6/uL (4.30-5.70) L Hemoglobin 11.5 g/dL (13.0-17.5) L Hematocrit 34.7 % (39.0-53.0) L Mean Corpuscular Volume 99 fL (79-100) Mean Corpuscular Hemoglobin 33 pg (25-35) Mean Corpuscular Hemoglobin Concent 33 g/dL (31-37) Red Cell Distribution Width 14.1 % (11.5-14.5) Platelet Count 302 x10^3/uL (140-400) Neutrophils (%) (Auto) 61 % (31-73) Lymphocytes (%) (Auto) 23 % (24-48) L Monocytes (%) (Auto) 8 % (0-9) Eosinophils (%) (Auto) 7 % (0-3) H Basophils (%) (Auto) 1 % (0-3) Neutrophils # (Auto) 4.6 x10^3uL (1.8-7.7) Lymphocytes # (Auto) 1.7 x10^3/uL (1.0-4.8) Monocytes # (Auto) 0.6 x10^3/uL (0.0-1.1) Eosinophils # (Auto) 0.5 x10^3/uL (0.0-0.7) Basophils # (Auto) 0.1 x10^3/uL (0.0-0.2) Sodium Level 140 mmol/L (136-145) Potassium Level 4.8 mmol/L (3.5-5.1) Chloride Level 105 mmol/L (98-107) Carbon Dioxide Level 28 mmol/L (21-32) Anion Gap 7 (6-14) Blood Urea Nitrogen 23 mg/dL (8-26) Creatinine 1.1 mg/dL (0.7-1.3) Estimated GFR (Cockcroft-Gault) 64.4 BUN/Creatinine Ratio 21 (6-20) H Glucose Level 121 mg/dL (70-99) H Glucose (Fingerstick) 107 mg/dL (70-99) H 153 mg/dL (70-99) H 114 mg/dL (70-99) H 164 mg/dL (70-99) H Calcium Level 8.7 mg/dL (8.5-10.1) Total Bilirubin 0.4 mg/dL (0.2-1.0) Aspartate Amino Transferase (AST) 14 U/L (15-37) L Alanine Aminotransferase (ALT) 19 U/L (16-63) Alkaline Phosphatase 89 U/L (46-116) Total Protein 6.7 g/dL (6.4-8.2) Albumin 3.1 g/dL (3.4-5.0) L Albumin/Globulin Ratio 0.9 (1.0-1.7) L Valproic Acid Level 52 mcg/mL (50-100) Valproic Acid Last Dose Date 08/09/2017 Valproic Acid Last Dose Time 2100 Current Medications: Meds: Current Medications Acetaminophen (Tylenol) 650 mg PRN Q6HRS PRN PO PAIN / TEMP Last administered on 08/05/17at 05:46; Start 07/25/17 at 19:45 Multi-Ingredient Ointment (Analgesic [place]) 1 nelson PRN QID PRN TP MUSCLE PAIN; Start 07/25/17 at 19:45 Al Hydroxide/Mg Hydroxide (Mylanta Plus Xs) 15 ml PRN AFTMEALHC PRN PO DYSPEPSIA; Start 07/25/17 at 19:45 Magnesium Hydroxide (Milk Of Magnesia) 2,400 mg PRN QHS PRN PO CONSTIPATION; Start 07/25/17 at 19:45 Donepezil HCl (Aricept) 10 mg QHS PO Last administered on 08/10/17 20:53; Start 07/25/17 at 22:00 Citalopram Hydrobromide (CeleXA) 40 mg DAILYWSUP PO Last administered on 16:31; Start 07/26/17 at 17:00; Stop 07/27/17 at 18:10; Status DC Melatonin 6 mg QHS PO Last administered on 08/10/17 20:53; Start 07/25/17 at 22 :00 Acetaminophen/ Hydrocodone Bitart (Lortab 5/325) 1 tab PRN Q6HRS PRN PO PAIN; Start 07/25/17 at 21:45 Insulin Glargine (Lantus) 5 units QHS SQ Last administered on 08/10/17 21:00; Start 07/25/17 at 21:00 Insulin Human Lispro (HumaLOG) 2 units QIDACHS SQ Last administered on 12:40; Start 07/25/17 at 21:00 Insulin Human Lispro (HumaLOG) 100 units QIDACHS SQ ; Start 07/26/17 at 07:30; Stop 07/26/17 at 07:30; Status DC Levothyroxine Sodium (Synthroid) 75 mcg DAILYAC PO Last administered on at 08:45; Start 07/26/17 at 07:30; Stop 07/26/17 at 11:21; Status DC Lisinopril (Prinivil) 5 mg DAILY PO Last administered on 08/10/17 08:03; Start 07/26/17 at 09:00 Ondansetron HCl (Zofran Odt) 4 mg PRN Q8HRS PRN PO NAUSEA/VOMITING; Start 07/25 at 21:45 Polyethylene Glycol (miraLAX) 17 gm PRN DAILY PRN PO CONSTIPATION; Start at 21:45 Meclizine HCl (Antivert) 25 mg BID PO Last administered on 08/10/17 20:53; Start 07/25/17 at 22:15 Insulin Human Lispro (HumaLOG) 0-12 UNITS QIDACHS SQ ; Start 07/25/17 at 21:00 Dextrose 12.5 gm PRN Q15MIN PRN IV SEE COMMENTS; Start 07/25/17 at 22:00 Bupropion HCl (Wellbutrin Xl) 150 mg DAILY PO Last administered on 08/02/17at 08 :49; Start 07/26/17 at 09:00; Stop 08/02/17 at 19:03; Status DC Levothyroxine Sodium (Synthroid) 75 mcg DAILY06 PO Last administered on at 05:59; Start 07/27/17 at 06:00 Cyanocobalamin (Vitamin B-12) 1,000 mcg WEEKLY IM Last administered on 09:30; Start 08/02/17 at 09:00 Vitamin D (Vitamin D3) 50,000 unit WEEKLY PO Last administered on 08/09/17 09: 30; Start 07/26/17 at 19:00 Sertraline HCl (Zoloft) 50 mg DAILY PO Last administered on 08/10/17 08:03; Start 07/28/17 at 09:00 Olanzapine (ZyPREXA ZYDIS) 1.25 mg PRN Q2HR PRN PO ANXIETY / AGITATION; Start 07/27/17 at 18:15 Ropinirole HCl (Requip) 0.25 mg TID PO Last administered on 08/10/17at 20:54; Start 07/28/17 at 21:00 Medroxyprogesterone Acetate (Provera) 2.5 mg DAILY PO Last administered on 07/31at 08:07; Start 07/29/17 at 09:00; Stop 07/31/17 at 17:51; Status DC Medroxyprogesterone Acetate (Provera) 5 mg DAILY PO Last administered on at 08:46; Start 08/01/17 at 09:00; Stop 08/03/17 at 08:10; Status DC Primidone (Mysoline) 25 mg DAILY PO Last administered on 08/10/17at 08:02; Start 08/01/17 at 09:00 Medroxyprogesterone Acetate (Provera) 7.5 mg DAILY PO Last administered on 08:01; Start 08/03/17 at 09:00; Stop 08/10/17 at 18:52; Status DC Quetiapine Fumarate (SEROquel) 12.5 mg DAILY PO Last administered on 08/03/17at 08:13; Start 08/03/17 at 09:00; Stop 08/03/17 at 19:05; Status DC Quetiapine Fumarate (SEROquel) 12.5 mg TID@0900,1300,1700 PO Last administered on 08/10/17at 17:25; Start 08/04/17 at 09:00 Divalproex Sodium (Depakote Er) 500 mg QHS PO Last administered on 08/06/17at 21 :22; Start 08/04/17 at 21:00; Stop 08/07/17 at 18:10; Status DC Divalproex Sodium (Depakote Er) 1,000 mg QHS PO Last administered on 08/10/17at 20:53; Start 08/07/17 at 21:00 Tamsulosin HCl (Flomax) 0.4 mg QHS PO Last administered on 08/10/17at 20:53; Start 08/09/17 at 21:00 Medroxyprogesterone Acetate (Provera) 10 mg DAILY PO ; Start 08/11/17 at 09:00 Active Scripts Active Reported Wellbutrin Xl (Bupropion Hcl) 150 Mg Tab.er.24h 150 Mg PO DAILY Lantus Solostar (Insulin Glargine,Hum.rec.anlog) 100 Unit/1 Ml Insuln.pen 5 Unit SQ QHS Humalog (Insulin Lispro) 100 Unit/1 Ml Insuln.pen 2 Unit SQ QIDACHS Humalog (Insulin Lispro) 100 Unit/1 Ml Insuln.pen 0-12 Unit SQ QIDACHS Sliding scale before meals and at bedtime: >200= 4 units >300= 8 units >400= 12 units and call doctor Hydrocodone-Apap 5-325 (Hydrocodone Bit/Acetaminophen) 1 Each Tablet 1 Tab PO PRN Q6HRS PRN Levothyroxine Sodium 75 Mcg Tablet 75 Mcg PO DAILYAC Lisinopril 5 Mg Tablet 5 Mg PO DAILY Zofran Odt (Ondansetron) 4 Mg Tab.rapdis 4 Mg PO PRN Q8HRS PRN Miralax (Polyethylene Glycol 3350) 17 Gm Powd.pack 17 Gm PO PRN DAILY PRN Meclizine Hcl 25 Mg Tablet 25 Mg PO BID Melatonin 3 Mg Tablet 6 Mg PO QHS Donepezil Hcl 10 Mg Tablet 10 Mg PO QHS Escitalopram Oxalate 20 Mg Tablet 20 Mg PO DAILYWSUP I have reviewed the current psychotropics carefully including drug interactions. Risk benefit ratio favors no change other than as noted in my dictated progress note. Diagnosis: Problems: (1) Anxiety disorder (2) Impulse control disorder (3) Dementia, vascular, with depression (4) Dementia, vascular, with delusions (5) Dementia in Alzheimer's disease with depression (6) Dementia in Alzheimer's disease with delusions TEZ MATHEWS MD August 10, 2017 21:16
[2017-08-11] MEDS: LEVOTHYROXINE 75 MCG TABLET PO SCH (06:00)
[2017-08-11 06:34] VITALS: BP 103/58
[2017-08-11] MEDS: rOPINIRole 0.25 MG TABLET. PO SCH ×3 (07:35→20:40)
[2017-08-11] MEDS: MECLIZINE 12.5 MG TABLET. PO SCH ×2 (07:35→20:40)
[2017-08-11] MEDS: SERTRALINE 50 MG TABLET. PO SCH (07:35)
[2017-08-11] MEDS: PRIMIDONE 50 MG TABLET PO SCH (07:36)
[2017-08-11] MEDS: QUEtiapine 25 MG TABLET. PO SCH ×3 (07:37→18:39)
[2017-08-11] MEDS: medroxyPROGESTERone 5 MG TABLET PO SCH (07:41)
[2017-08-11] MEDS: INSULIN LISPRO 300 UNITS/3 ML INSULN.PEN. SQ SCH ×9 (07:51→21:12)
[2017-08-11] MEDS: LISINOPRIL 5 MG TABLET. PO SCH (07:53)
--- NOTE | 2017-08-11 09:23 | PN ---
DATE: 08/08/2017 This late entry, 08/08/2017, covers elements not covered in my initial note of 08/08/2017. SUBJECTIVE: I met with the patient in the evening of 08/08/2017. The patient slept 9 hours previous evening. Previous evening, he was quite irritable, needy, grouchy per nursing report. On 08/08/2017, he dropped himself to the floor. No injury noted. Somewhat withdrawn at times, but no sexually inappropriate behaviors noted. REVIEW OF SYSTEMS: Ambulation impaired, in wheelchair. No CV, , pulmonary, eye, ENT system symptoms on review. MENTAL STATUS EXAM: Oriented to himself and situation. Speech has some latency, coherent, less pressured. Abstraction fair, computation impaired, language function intact, attention span short. Mood and affect lability is improved. LABORATORY DATA: Reviewed. IMPRESSION: Unchanged from initial note. PLAN: Continue current psychotropics including Provera. MAN Sunny MATHEWS MD DR: IAN/elvis JOB#: [id number] / [id number]
[2017-08-11 17:11] VITALS: BP 133/85
--- NOTE | 2017-08-11 18:29 | PN ---
DATE: 08/09/2017 This is a late entry for 08/09/2017 and covers the elements not covered in my initial note of 08/09/2017. SUBJECTIVE: I met with the patient in the evenings, staffed at a treatment team meeting with the entire team in the morning. The patient slept 7-1/4 hours. Per nursing staff report, there was dry ejaculate found in his pants, but despite this, he has not been sexually inappropriate with female staff members or other patients. We will be checking labs in the morning of 08/11/2047. Sleeping 7 hours, appetite 90%, was irritable earlier in the day, refused his insulin on 2 occasions, blood sugar 139, drowsy at times, 1300 Seroquel was held. REVIEW OF SYSTEMS: Ambulation impaired, in wheelchair. No CV, , pulmonary, eye, ENT system symptoms on review. MENTAL STATUS EXAM: Oriented to himself and situation. Speech moderate latency, coherent. Abstraction fair, computation impaired, language function intact, attention span short. Mood and affect somewhat withdrawn. LABORATORY DATA: Reviewed. IMPRESSION: Unchanged from initial note. PLAN: Continue psychotropics mentioned in my initial note. MAN Sunny MATHEWS MD DR: IAN/elvis JOB#: [id number] / [id number]
[2017-08-11] MEDS: TAMSULOSIN 0.4 MG CAP.ER.24H. PO SCH (20:40)
[2017-08-11] MEDS: MELATONIN 3 MG TABLET PO SCH (20:40)
[2017-08-11] MEDS: DONEPEZIL HCL 10 MG TABLET PO SCH (20:41)
[2017-08-11] MEDS: DIVALPROEX ER 500 MG TAB.ER.24H PO SCH (20:41)
[2017-08-11] MEDS: INSULIN GLARGINE 300 UNITS/3 ML INSULN.PEN. SQ SCH (21:13)
--- NOTE | 2017-08-11 23:12 | PDOC ---
Exam Note: Eddie Note: Please also refer to the separate dictated note~for this date of service dictated separately.~Patient seen individually. Discussed the patient with Nursing staff reviewed the chart.~Reviewed interim history and current functioning. Reviewed vital signs,~Labs/ Radiology~and current medications noted below. Continue current treatment with the changes noted in the dictated addendum note Assessment: Vital Signs: Vital Signs Date Time Temp Pulse Resp B/P (MAP) Pulse Ox O2 Delivery O2 Flow Rate FiO2 08/11/17 17:11 97.8 106 18 133/85 (101) 90 08/10/17 06:18 Room Air I&O Intake and Output 08/11/17 07:00 Intake Total 1680 ml Output Total 200 ml Balance 1480 ml Intake Oral 1680 ml Output Urine Total 200 ml # Bowel Movements 1 Labs: Laboratory Tests Test 08/11/17 07:38 08/11/17 12:13 08/11/17 16:51 08/11/17 19:20 Glucose (Fingerstick) 104 mg/dL (70-99) H 199 mg/dL (70-99) H 163 mg/dL (70-99) H 109 mg/dL (70-99) H Current Medications: Meds: Current Medications Acetaminophen (Tylenol) 650 mg PRN Q6HRS PRN PO PAIN / TEMP Last administered on 08/05/17at 05:46; Start 07/25/17 at 19:45 Multi-Ingredient Ointment (Analgesic [place]) 1 nelson PRN QID PRN TP MUSCLE PAIN; Start 07/25/17 at 19:45 Al Hydroxide/Mg Hydroxide (Mylanta Plus Xs) 15 ml PRN AFTMEALHC PRN PO DYSPEPSIA; Start 07/25/17 at 19:45 Magnesium Hydroxide (Milk Of Magnesia) 2,400 mg PRN QHS PRN PO CONSTIPATION; Start 07/25/17 at 19:45 Donepezil HCl (Aricept) 10 mg QHS PO Last administered on 08/11/17at 20:41; Start 07/25/17 at 22:00 Citalopram Hydrobromide (CeleXA) 40 mg DAILYWSUP PO Last administered on at 16:31; Start 07/26/17 at 17:00; Stop 07/27/17 at 18:10; Status DC Melatonin 6 mg QHS PO Last administered on 08/11/17 20:40; Start 07/25/17 at 22 :00 Acetaminophen/ Hydrocodone Bitart (Lortab 5/325) 1 tab PRN Q6HRS PRN PO PAIN; Start 07/25/17 at 21:45 Insulin Glargine (Lantus) 5 units QHS SQ Last administered on 08/11/17 21:13; Start 07/25/17 at 21:00 Insulin Human Lispro (HumaLOG) 2 units QIDACHS SQ Last administered on 21:12; Start 07/25/17 at 21:00 Insulin Human Lispro (HumaLOG) 100 units QIDACHS SQ ; Start 07/26/17 at 07:30; Stop 07/26/17 at 07:30; Status DC Levothyroxine Sodium (Synthroid) 75 mcg DAILYAC PO Last administered on 08:45; Start 07/26/17 at 07:30; Stop 07/26/17 at 11:21; Status DC Lisinopril (Prinivil) 5 mg DAILY PO Last administered on 08/10/17 08:03; Start 07/26/17 at 09:00 Ondansetron HCl (Zofran Odt) 4 mg PRN Q8HRS PRN PO NAUSEA/VOMITING; Start 07/25 at 21:45 Polyethylene Glycol (miraLAX) 17 gm PRN DAILY PRN PO CONSTIPATION; Start at 21:45 Meclizine HCl (Antivert) 25 mg BID PO Last administered on 08/11/17 20:40; Start 07/25/17 at 22:15 Insulin Human Lispro (HumaLOG) 0-12 UNITS QIDACHS SQ ; Start 07/25/17 at 21:00 Dextrose 12.5 gm PRN Q15MIN PRN IV SEE COMMENTS; Start 07/25/17 at 22:00 Bupropion HCl (Wellbutrin Xl) 150 mg DAILY PO Last administered on 08/02/17 08 :49; Start 07/26/17 at 09:00; Stop 08/02/17 at 19:03; Status DC Levothyroxine Sodium (Synthroid) 75 mcg DAILY06 PO Last administered on 06:00; Start 07/27/17 at 06:00 Cyanocobalamin (Vitamin B-12) 1,000 mcg WEEKLY IM Last administered on 09:30; Start 08/02/17 at 09:00 Vitamin D (Vitamin D3) 50,000 unit WEEKLY PO Last administered on 08/09/17 09: 30; Start 07/26/17 at 19:00 Sertraline HCl (Zoloft) 50 mg DAILY PO Last administered on 08/11/17 07:35; Start 07/28/17 at 09:00 Olanzapine (ZyPREXA ZYDIS) 1.25 mg PRN Q2HR PRN PO ANXIETY / AGITATION; Start 07/27/17 at 18:15 Ropinirole HCl (Requip) 0.25 mg TID PO Last administered on 08/11/17 20:40; Start 07/28/17 at 21:00 Medroxyprogesterone Acetate (Provera) 2.5 mg DAILY PO Last administered on 07/31at 08:07; Start 07/29/17 at 09:00; Stop 07/31/17 at 17:51; Status DC Medroxyprogesterone Acetate (Provera) 5 mg DAILY PO Last administered on 08:46; Start 08/01/17 at 09:00; Stop 08/03/17 at 08:10; Status DC Primidone (Mysoline) 25 mg DAILY PO Last administered on 08/11/17 07:36; Start 08/01/17 at 09:00 Medroxyprogesterone Acetate (Provera) 7.5 mg DAILY PO Last administered on 08:01; Start 08/03/17 at 09:00; Stop 08/10/17 at 18:52; Status DC Quetiapine Fumarate (SEROquel) 12.5 mg DAILY PO Last administered on 08/03/17 08:13; Start 08/03/17 at 09:00; Stop 08/03/17 at 19:05; Status DC Quetiapine Fumarate (SEROquel) 12.5 mg TID@0900,1300,1700 PO Last administered on 08/11/17 18:39; Start 08/04/17 at 09:00 Divalproex Sodium (Depakote Er) 500 mg QHS PO Last administered on 08/06/17at 21 :22; Start 08/04/17 at 21:00; Stop 08/07/17 at 18:10; Status DC Divalproex Sodium (Depakote Er) 1,000 mg QHS PO Last administered on 08/11/17at 20:41; Start 08/07/17 at 21:00 Tamsulosin HCl (Flomax) 0.4 mg QHS PO Last administered on 08/11/17at 20:40; Start 08/09/17 at 21:00 Medroxyprogesterone Acetate (Provera) 10 mg DAILY PO Last administered on at 07:41; Start 08/11/17 at 09:00 Active Scripts Active Reported Wellbutrin Xl (Bupropion Hcl) 150 Mg Tab.er.24h 150 Mg PO DAILY Lantus Solostar (Insulin Glargine,Hum.rec.anlog) 100 Unit/1 Ml Insuln.pen 5 Unit SQ QHS Humalog (Insulin Lispro) 100 Unit/1 Ml Insuln.pen 2 Unit SQ QIDACHS Humalog (Insulin Lispro) 100 Unit/1 Ml Insuln.pen 0-12 Unit SQ QIDACHS Sliding scale before meals and at bedtime: >200= 4 units >300= 8 units >400= 12 units and call doctor Hydrocodone-Apap 5-325 (Hydrocodone Bit/Acetaminophen) 1 Each Tablet 1 Tab PO PRN Q6HRS PRN Levothyroxine Sodium 75 Mcg Tablet 75 Mcg PO DAILYAC Lisinopril 5 Mg Tablet 5 Mg PO DAILY Zofran Odt (Ondansetron) 4 Mg Tab.rapdis 4 Mg PO PRN Q8HRS PRN Miralax (Polyethylene Glycol 3350) 17 Gm Powd.pack 17 Gm PO PRN DAILY PRN Meclizine Hcl 25 Mg Tablet 25 Mg PO BID Melatonin 3 Mg Tablet 6 Mg PO QHS Donepezil Hcl 10 Mg Tablet 10 Mg PO QHS Escitalopram Oxalate 20 Mg Tablet 20 Mg PO DAILYWSUP I have reviewed the current psychotropics carefully including drug interactions. Risk benefit ratio favors no change other than as noted in my dictated progress note. Diagnosis: Problems: (1) Anxiety disorder (2) Impulse control disorder (3) Dementia, vascular, with depression (4) Dementia, vascular, with delusions (5) Dementia in Alzheimer's disease with depression (6) Dementia in Alzheimer's disease with delusions TEZ MATHEWS MD August 11, 2017 23:12
[2017-08-12] MEDS: LEVOTHYROXINE 75 MCG TABLET PO SCH (05:04)
[2017-08-12 06:20] VITALS: BP 114/53
[2017-08-12] MEDS: INSULIN LISPRO 300 UNITS/3 ML INSULN.PEN. SQ SCH ×8 (07:59→21:45)
[2017-08-12] MEDS: MECLIZINE 12.5 MG TABLET. PO SCH ×2 (08:21→20:27)
[2017-08-12] MEDS: rOPINIRole 0.25 MG TABLET. PO SCH ×3 (08:21→20:27)
[2017-08-12] MEDS: medroxyPROGESTERone 5 MG TABLET PO SCH (08:21)
[2017-08-12] MEDS: QUEtiapine 25 MG TABLET. PO SCH ×3 (08:21→18:16)
[2017-08-12] MEDS: SERTRALINE 50 MG TABLET. PO SCH (08:22)
[2017-08-12] MEDS: PRIMIDONE 50 MG TABLET PO SCH (08:22)
[2017-08-12] MEDS: LISINOPRIL 5 MG TABLET. PO SCH (09:00)
[2017-08-12 16:53] VITALS: BP 148/66
--- NOTE | 2017-08-12 19:00 | PDOC ---
Exam Note: Eddie Note: Please also refer to the separate dictated note~for this date of service dictated separately.~Patient seen individually. Discussed the patient with Nursing staff reviewed the chart.~Reviewed interim history and current functioning. Reviewed vital signs,~Labs/ Radiology~and current medications noted below. Continue current treatment with the changes noted in the dictated addendum note Assessment: Vital Signs: Vital Signs Date Time Temp Pulse Resp B/P (MAP) Pulse Ox O2 Delivery O2 Flow Rate FiO2 08/12/17 16:53 98.0 79 19 148/66 (93) 98 08/10/17 06:18 Room Air I&O Intake and Output 08/12/17 07:00 Intake Total 480 ml Output Total 200 ml Balance 280 ml Intake Oral 480 ml Output Urine Total 200 ml Labs: Laboratory Tests Test 08/11/17 19:20 08/12/17 07:30 08/12/17 11:18 08/12/17 16:50 Glucose (Fingerstick) 109 mg/dL (70-99) H 109 mg/dL (70-99) H 176 mg/dL (70-99) H 151 mg/dL (70-99) H Current Medications: Meds: Current Medications Acetaminophen (Tylenol) 650 mg PRN Q6HRS PRN PO PAIN / TEMP Last administered on 08/05/17at 05:46; Start 07/25/17 at 19:45 Multi-Ingredient Ointment (Analgesic [place]) 1 nelson PRN QID PRN TP MUSCLE PAIN; Start 07/25/17 at 19:45 Al Hydroxide/Mg Hydroxide (Mylanta Plus Xs) 15 ml PRN AFTMEALHC PRN PO DYSPEPSIA; Start 07/25/17 at 19:45 Magnesium Hydroxide (Milk Of Magnesia) 2,400 mg PRN QHS PRN PO CONSTIPATION; Start 07/25/17 at 19:45 Donepezil HCl (Aricept) 10 mg QHS PO Last administered on 08/11/17at 20:41; Start 07/25/17 at 22:00 Citalopram Hydrobromide (CeleXA) 40 mg DAILYWSUP PO Last administered on at 16:31; Start 07/26/17 at 17:00; Stop 07/27/17 at 18:10; Status DC Melatonin 6 mg QHS PO Last administered on 08/11/17 20:40; Start 07/25/17 at 22 :00 Acetaminophen/ Hydrocodone Bitart (Lortab 5/325) 1 tab PRN Q6HRS PRN PO PAIN; Start 07/25/17 at 21:45 Insulin Glargine (Lantus) 5 units QHS SQ Last administered on 08/11/17 21:13; Start 07/25/17 at 21:00 Insulin Human Lispro (HumaLOG) 2 units QIDACHS SQ Last administered on 18:17; Start 07/25/17 at 21:00 Insulin Human Lispro (HumaLOG) 100 units QIDACHS SQ ; Start 07/26/17 at 07:30; Stop 07/26/17 at 07:30; Status DC Levothyroxine Sodium (Synthroid) 75 mcg DAILYAC PO Last administered on 08:45; Start 07/26/17 at 07:30; Stop 07/26/17 at 11:21; Status DC Lisinopril (Prinivil) 5 mg DAILY PO Last administered on 08/10/17 08:03; Start 07/26/17 at 09:00 Ondansetron HCl (Zofran Odt) 4 mg PRN Q8HRS PRN PO NAUSEA/VOMITING; Start 07/25 at 21:45 Polyethylene Glycol (miraLAX) 17 gm PRN DAILY PRN PO CONSTIPATION; Start at 21:45 Meclizine HCl (Antivert) 25 mg BID PO Last administered on 08/12/17 08:21; Start 07/25/17 at 22:15 Insulin Human Lispro (HumaLOG) 0-12 UNITS QIDACHS SQ ; Start 07/25/17 at 21:00 Dextrose 12.5 gm PRN Q15MIN PRN IV SEE COMMENTS; Start 07/25/17 at 22:00 Bupropion HCl (Wellbutrin Xl) 150 mg DAILY PO Last administered on 08/02/17 08 :49; Start 07/26/17 at 09:00; Stop 08/02/17 at 19:03; Status DC Levothyroxine Sodium (Synthroid) 75 mcg DAILY06 PO Last administered on 05:04; Start 07/27/17 at 06:00 Cyanocobalamin (Vitamin B-12) 1,000 mcg WEEKLY IM Last administered on 09:30; Start 08/02/17 at 09:00 Vitamin D (Vitamin D3) 50,000 unit WEEKLY PO Last administered on 08/09/17 09: 30; Start 07/26/17 at 19:00 Sertraline HCl (Zoloft) 50 mg DAILY PO Last administered on 08/12/17 08:22; Start 07/28/17 at 09:00 Olanzapine (ZyPREXA ZYDIS) 1.25 mg PRN Q2HR PRN PO ANXIETY / AGITATION; Start 07/27/17 at 18:15 Ropinirole HCl (Requip) 0.25 mg TID PO Last administered on 08/12/17 13:32; Start 07/28/17 at 21:00 Medroxyprogesterone Acetate (Provera) 2.5 mg DAILY PO Last administered on 07/31at 08:07; Start 07/29/17 at 09:00; Stop 07/31/17 at 17:51; Status DC Medroxyprogesterone Acetate (Provera) 5 mg DAILY PO Last administered on 08:46; Start 08/01/17 at 09:00; Stop 08/03/17 at 08:10; Status DC Primidone (Mysoline) 25 mg DAILY PO Last administered on 08/12/17 08:22; Start 08/01/17 at 09:00 Medroxyprogesterone Acetate (Provera) 7.5 mg DAILY PO Last administered on 08:01; Start 08/03/17 at 09:00; Stop 08/10/17 at 18:52; Status DC Quetiapine Fumarate (SEROquel) 12.5 mg DAILY PO Last administered on 08/03/17 08:13; Start 08/03/17 at 09:00; Stop 08/03/17 at 19:05; Status DC Quetiapine Fumarate (SEROquel) 12.5 mg TID@0900,1300,1700 PO Last administered on 08/12/17 18:16; Start 08/04/17 at 09:00 Divalproex Sodium (Depakote Er) 500 mg QHS PO Last administered on 4/30/18at 21 :22; Start 08/04/17 at 21:00; Stop 08/07/17 at 18:10; Status DC Divalproex Sodium (Depakote Er) 1,000 mg QHS PO Last administered on 08/11/17at 20:41; Start 08/07/17 at 21:00 Tamsulosin HCl (Flomax) 0.4 mg QHS PO Last administered on 08/11/17at 20:40; Start 08/09/17 at 21:00 Medroxyprogesterone Acetate (Provera) 10 mg DAILY PO Last administered on at 08:21; Start 08/11/17 at 09:00 Active Scripts Active Reported Wellbutrin Xl (Bupropion Hcl) 150 Mg Tab.er.24h 150 Mg PO DAILY Lantus Solostar (Insulin Glargine,Hum.rec.anlog) 100 Unit/1 Ml Insuln.pen 5 Unit SQ QHS Humalog (Insulin Lispro) 100 Unit/1 Ml Insuln.pen 2 Unit SQ QIDACHS Humalog (Insulin Lispro) 100 Unit/1 Ml Insuln.pen 0-12 Unit SQ QIDACHS Sliding scale before meals and at bedtime: >200= 4 units >300= 8 units >400= 12 units and call doctor Hydrocodone-Apap 5-325 (Hydrocodone Bit/Acetaminophen) 1 Each Tablet 1 Tab PO PRN Q6HRS PRN Levothyroxine Sodium 75 Mcg Tablet 75 Mcg PO DAILYAC Lisinopril 5 Mg Tablet 5 Mg PO DAILY Zofran Odt (Ondansetron) 4 Mg Tab.rapdis 4 Mg PO PRN Q8HRS PRN Miralax (Polyethylene Glycol 3350) 17 Gm Powd.pack 17 Gm PO PRN DAILY PRN Meclizine Hcl 25 Mg Tablet 25 Mg PO BID Melatonin 3 Mg Tablet 6 Mg PO QHS Donepezil Hcl 10 Mg Tablet 10 Mg PO QHS Escitalopram Oxalate 20 Mg Tablet 20 Mg PO DAILYWSUP I have reviewed the current psychotropics carefully including drug interactions. Risk benefit ratio favors no change other than as noted in my dictated progress note. Diagnosis: Problems: (1) Major depressive disorder, recurrent episode (2) Dementia in Alzheimer's disease with delusions (3) Dementia in Alzheimer's disease with depression (4) Impulse control disorder (5) Dementia, vascular, with delusions (6) Dementia, vascular, with depression (7) Anxiety disorder TEZ MATHEWS MD August 12, 2017 19:00
[2017-08-12] MEDS: MELATONIN 3 MG TABLET PO SCH (20:27)
[2017-08-12] MEDS: DONEPEZIL HCL 10 MG TABLET PO SCH (20:27)
[2017-08-12] MEDS: TAMSULOSIN 0.4 MG CAP.ER.24H. PO SCH (20:28)
[2017-08-12] MEDS: DIVALPROEX ER 500 MG TAB.ER.24H PO SCH (20:28)
[2017-08-12] MEDS: INSULIN GLARGINE 300 UNITS/3 ML INSULN.PEN. SQ SCH (21:44)
[2017-08-13] MEDS: LEVOTHYROXINE 75 MCG TABLET PO SCH (04:43)
[2017-08-13 06:17] VITALS: BP 137/66
[2017-08-13] MEDS: INSULIN LISPRO 300 UNITS/3 ML INSULN.PEN. SQ SCH ×8 (07:30→20:16)
[2017-08-13] MEDS: PRIMIDONE 50 MG TABLET PO SCH (09:52)
[2017-08-13] MEDS: medroxyPROGESTERone 5 MG TABLET PO SCH (09:52)
[2017-08-13] MEDS: QUEtiapine 25 MG TABLET. PO SCH ×3 (09:53→17:18)
[2017-08-13] MEDS: rOPINIRole 0.25 MG TABLET. PO SCH ×3 (09:54→20:12)
[2017-08-13] MEDS: MECLIZINE 12.5 MG TABLET. PO SCH ×2 (09:54→20:13)
[2017-08-13] MEDS: SERTRALINE 50 MG TABLET. PO SCH (09:54)
[2017-08-13] MEDS: LISINOPRIL 5 MG TABLET. PO SCH (09:54)
[2017-08-13 16:38] VITALS: BP 129/82
[2017-08-13] MEDS: TAMSULOSIN 0.4 MG CAP.ER.24H. PO SCH (20:12)
[2017-08-13] MEDS: DONEPEZIL HCL 10 MG TABLET PO SCH (20:12)
[2017-08-13] MEDS: MELATONIN 3 MG TABLET PO SCH (20:13)
[2017-08-13] MEDS: DIVALPROEX ER 500 MG TAB.ER.24H PO SCH (20:13)
[2017-08-13] MEDS: INSULIN GLARGINE 300 UNITS/3 ML INSULN.PEN. SQ SCH (20:15)
--- NOTE | 2017-08-13 21:07 | PDOC ---
Exam Note: Eddie Note: Please also refer to the separate dictated note~for this date of service dictated separately.~Patient seen individually. Discussed the patient with Nursing staff reviewed the chart.~Reviewed interim history and current functioning. Reviewed vital signs,~Labs/ Radiology~and current medications noted below. Continue current treatment with the changes noted in the dictated addendum note Assessment: Vital Signs: Vital Signs Date Time Temp Pulse Resp B/P (MAP) Pulse Ox O2 Delivery O2 Flow Rate FiO2 08/13/17 16:38 98.1 82 20 129/82 (98) 99 08/10/17 06:18 Room Air I&O Intake and Output 08/13/17 07:00 Intake Total 960 ml Output Total 200 ml Balance 760 ml Intake Oral 960 ml Output Urine Total 200 ml Labs: Laboratory Tests Test 08/13/17 07:41 08/13/17 11:58 08/13/17 16:56 08/13/17 19:09 Glucose (Fingerstick) 155 mg/dL (70-99) H 104 mg/dL (70-99) H 126 mg/dL (70-99) H 163 mg/dL (70-99) H Current Medications: Meds: Current Medications Acetaminophen (Tylenol) 650 mg PRN Q6HRS PRN PO PAIN / TEMP Last administered on 08/05/17at 05:46; Start 07/25/17 at 19:45 Multi-Ingredient Ointment (Analgesic [place]) 1 nelson PRN QID PRN TP MUSCLE PAIN; Start 07/25/17 at 19:45 Al Hydroxide/Mg Hydroxide (Mylanta Plus Xs) 15 ml PRN AFTMEALHC PRN PO DYSPEPSIA; Start 07/25/17 at 19:45 Magnesium Hydroxide (Milk Of Magnesia) 2,400 mg PRN QHS PRN PO CONSTIPATION; Start 07/25/17 at 19:45 Donepezil HCl (Aricept) 10 mg QHS PO Last administered on 08/13/17at 20:12; Start 07/25/17 at 22:00 Citalopram Hydrobromide (CeleXA) 40 mg DAILYWSUP PO Last administered on at 16:31; Start 07/26/17 at 17:00; Stop 07/27/17 at 18:10; Status DC Melatonin 6 mg QHS PO Last administered on 08/13/17 20:13; Start 07/25/17 at 22 :00 Acetaminophen/ Hydrocodone Bitart (Lortab 5/325) 1 tab PRN Q6HRS PRN PO PAIN; Start 07/25/17 at 21:45 Insulin Glargine (Lantus) 5 units QHS SQ Last administered on 08/13/17 20:15; Start 07/25/17 at 21:00 Insulin Human Lispro (HumaLOG) 2 units QIDACHS SQ Last administered on 20:15; Start 07/25/17 at 21:00 Insulin Human Lispro (HumaLOG) 100 units QIDACHS SQ ; Start 07/26/17 at 07:30; Stop 07/26/17 at 07:30; Status DC Levothyroxine Sodium (Synthroid) 75 mcg DAILYAC PO Last administered on 08:45; Start 07/26/17 at 07:30; Stop 07/26/17 at 11:21; Status DC Lisinopril (Prinivil) 5 mg DAILY PO Last administered on 08/13/17 09:54; Start 07/26/17 at 09:00 Ondansetron HCl (Zofran Odt) 4 mg PRN Q8HRS PRN PO NAUSEA/VOMITING; Start 07/25 at 21:45 Polyethylene Glycol (miraLAX) 17 gm PRN DAILY PRN PO CONSTIPATION; Start at 21:45 Meclizine HCl (Antivert) 25 mg BID PO Last administered on 08/13/17 20:13; Start 07/25/17 at 22:15 Insulin Human Lispro (HumaLOG) 0-12 UNITS QIDACHS SQ ; Start 07/25/17 at 21:00 Dextrose 12.5 gm PRN Q15MIN PRN IV SEE COMMENTS; Start 07/25/17 at 22:00 Bupropion HCl (Wellbutrin Xl) 150 mg DAILY PO Last administered on 08/02/17at 08 :49; Start 07/26/17 at 09:00; Stop 08/02/17 at 19:03; Status DC Levothyroxine Sodium (Synthroid) 75 mcg DAILY06 PO Last administered on at 04:43; Start 07/27/17 at 06:00 Cyanocobalamin (Vitamin B-12) 1,000 mcg WEEKLY IM Last administered on 09:30; Start 08/02/17 at 09:00 Vitamin D (Vitamin D3) 50,000 unit WEEKLY PO Last administered on 08/09/17 09: 30; Start 07/26/17 at 19:00 Sertraline HCl (Zoloft) 50 mg DAILY PO Last administered on 08/13/17at 09:54; Start 07/28/17 at 09:00 Olanzapine (ZyPREXA ZYDIS) 1.25 mg PRN Q2HR PRN PO ANXIETY / AGITATION; Start 07/27/17 at 18:15 Ropinirole HCl (Requip) 0.25 mg TID PO Last administered on 08/13/17at 20:12; Start 07/28/17 at 21:00 Medroxyprogesterone Acetate (Provera) 2.5 mg DAILY PO Last administered on 07/31at 08:07; Start 07/29/17 at 09:00; Stop 07/31/17 at 17:51; Status DC Medroxyprogesterone Acetate (Provera) 5 mg DAILY PO Last administered on at 08:46; Start 08/01/17 at 09:00; Stop 08/03/17 at 08:10; Status DC Primidone (Mysoline) 25 mg DAILY PO Last administered on 08/13/17at 09:52; Start 08/01/17 at 09:00 Medroxyprogesterone Acetate (Provera) 7.5 mg DAILY PO Last administered on at 08:01; Start 08/03/17 at 09:00; Stop 08/10/17 at 18:52; Status DC Quetiapine Fumarate (SEROquel) 12.5 mg DAILY PO Last administered on 08/03/17at 08:13; Start 08/03/17 at 09:00; Stop 08/03/17 at 19:05; Status DC Quetiapine Fumarate (SEROquel) 12.5 mg TID@0900,1300,1700 PO Last administered on 08/13/17 17:18; Start 08/04/17 at 09:00; Stop 08/13/17 at 18:32; Status DC Divalproex Sodium (Depakote Er) 500 mg QHS PO Last administered on 08/06/17at 21 :22; Start 08/04/17 at 21:00; Stop 08/07/17 at 18:10; Status DC Divalproex Sodium (Depakote Er) 1,000 mg QHS PO Last administered on 08/13/17at 20:13; Start 08/07/17 at 21:00 Tamsulosin HCl (Flomax) 0.4 mg QHS PO Last administered on 08/13/17at 20:12; Start 08/09/17 at 21:00 Medroxyprogesterone Acetate (Provera) 10 mg DAILY PO Last administered on at 09:52; Start 08/11/17 at 09:00; Stop 08/13/17 at 18:32; Status DC Medroxyprogesterone Acetate (Provera) 12.5 mg DAILY PO ; Start 08/14/17 at 09:00 Quetiapine Fumarate (SEROquel) 25 mg BID@0900,1700 PO ; Start 08/14/17 at 09:00 Quetiapine Fumarate (SEROquel) 12.5 mg DAILY@1300 PO ; Start 08/14/17 at 13:00 Active Scripts Active Reported Wellbutrin Xl (Bupropion Hcl) 150 Mg Tab.er.24h 150 Mg PO DAILY Lantus Solostar (Insulin Glargine,Hum.rec.anlog) 100 Unit/1 Ml Insuln.pen 5 Unit SQ QHS Humalog (Insulin Lispro) 100 Unit/1 Ml Insuln.pen 2 Unit SQ QIDACHS Humalog (Insulin Lispro) 100 Unit/1 Ml Insuln.pen 0-12 Unit SQ QIDACHS Sliding scale before meals and at bedtime: >200= 4 units >300= 8 units >400= 12 units and call doctor Hydrocodone-Apap 5-325 (Hydrocodone Bit/Acetaminophen) 1 Each Tablet 1 Tab PO PRN Q6HRS PRN Levothyroxine Sodium 75 Mcg Tablet 75 Mcg PO DAILYAC Lisinopril 5 Mg Tablet 5 Mg PO DAILY Zofran Odt (Ondansetron) 4 Mg Tab.rapdis 4 Mg PO PRN Q8HRS PRN Miralax (Polyethylene Glycol 3350) 17 Gm Powd.pack 17 Gm PO PRN DAILY PRN Meclizine Hcl 25 Mg Tablet 25 Mg PO BID Melatonin 3 Mg Tablet 6 Mg PO QHS Donepezil Hcl 10 Mg Tablet 10 Mg PO QHS Escitalopram Oxalate 20 Mg Tablet 20 Mg PO DAILYWSUP I have reviewed the current psychotropics carefully including drug interactions. Risk benefit ratio favors no change other than as noted in my dictated progress note. Diagnosis: Problems: (1) Anxiety disorder (2) Impulse control disorder (3) Dementia, vascular, with depression (4) Dementia, vascular, with delusions (5) Dementia in Alzheimer's disease with depression (6) Dementia in Alzheimer's disease with delusions (7) Major depressive disorder, recurrent episode TEZ MATHEWS MD August 13, 2017 21:07
[2017-08-14] MEDS: LEVOTHYROXINE 75 MCG TABLET PO SCH (05:50)
[2017-08-14 05:58] VITALS: BP 105/63
--- NOTE | 2017-08-14 06:13 | PN ---
DATE: 08/10/2017 This is a late entry for 08/10/2017 and covers elements not covered in my initial note of 08/10/2017. I met with the patient in the evening, patient slept 7-1/4 hours. He tried to get one of the other demented patients into his room, still has sexually inappropriate attempts. REVIEW OF SYSTEMS: Ambulation impaired, in wheelchair. No CV, , pulmonary, eye system symptoms on review. MENTAL STATUS EXAM: Oriented to himself and situation. Speech coherent, has some latency. Abstraction fair, computation impaired, language function intact, attention span short. Mood and affect remains labile. IMPRESSION: Unchanged from initial note. PLAN: Increase Provera to 10 mg a day. Valproic acid level therapeutic at 52. Rest unchanged from initial note. MAN Sunny MATHEWS MD DR: IAN/elvis JOB#: [id number] / [id number]
--- NOTE | 2017-08-14 06:14 | PN ---
DATE: 08/12/2017 This is a late entry for 08/12/2017 and covers elements not covered in my initial note of 08/12/2017. I met with the patient in the evening. The patient slept 7-1/2 hours, had taken his pants down to his ankles earlier in the day, but he might have just got out of the restroom. No sexually inappropriate behavior is noted. REVIEW OF SYSTEMS: Ambulation impaired, in wheelchair. No CV, , pulmonary, eye system symptoms on review. MENTAL STATUS EXAM: Oriented to himself situation, quite withdrawn. Speech, moderate latency, often responses monosyllabic. Abstraction fair, computation impaired, language function intact. Mood and affect remain somewhat withdrawn. LABORATORY DATA: Reviewed. IMPRESSION: Unchanged from initial note. PLAN: No change from initial note. MAN Sunny MATHEWS MD DR: IAN/elvis JOB#: [id number] / [id number]
--- NOTE | 2017-08-14 06:22 | PN ---
DATE: 08/11/2017 PSYCHIATRIC PROGRESS NOTE This is a late entry 08/11/2017, covers elements not covered in my initial note. SUBJECTIVE: I met with the patient in the evening. The patient is compliant with this medication, acts helpless. Ambulation impaired, in wheelchair. No CV, , pulmonary, eye system symptoms on review. No sexually inappropriate behaviors on 08/11/2017. MENTAL STATUS EXAM: Oriented to himself and situation. Speech has some latency. Abstraction fair, computation impaired, language function intact. Mood and affect are somewhat withdrawn. LABORATORY DATA: Reviewed. IMPRESSION: Unchanged from initial note. PLAN: No change from initial note. TEZ MATHEWS MD DR: IAN/elvis JOB#: [id number] / [id number]
[2017-08-14] MEDS: INSULIN LISPRO 300 UNITS/3 ML INSULN.PEN. SQ SCH ×8 (07:30→20:24)
[2017-08-14] MEDS: LISINOPRIL 5 MG TABLET. PO SCH (09:00)
[2017-08-14 09:17] VITALS: BP 92/50
[2017-08-14] MEDS: PRIMIDONE 50 MG TABLET PO SCH (09:19)
[2017-08-14] MEDS: SERTRALINE 50 MG TABLET. PO SCH (09:19)
[2017-08-14] MEDS: MECLIZINE 12.5 MG TABLET. PO SCH ×2 (09:19→20:21)
[2017-08-14] MEDS: rOPINIRole 0.25 MG TABLET. PO SCH ×3 (09:19→20:21)
[2017-08-14] MEDS: QUEtiapine 25 MG TABLET. PO SCH ×3 (09:21→17:45)
[2017-08-14] MEDS: medroxyPROGESTERone 5 MG TABLET PO SCH (09:22)
[2017-08-14 16:22] VITALS: BP 125/58
[2017-08-14] MEDS: DIVALPROEX ER 500 MG TAB.ER.24H PO SCH (20:21)
[2017-08-14] MEDS: TAMSULOSIN 0.4 MG CAP.ER.24H. PO SCH (20:21)
[2017-08-14] MEDS: DONEPEZIL HCL 10 MG TABLET PO SCH (20:21)
[2017-08-14] MEDS: MELATONIN 3 MG TABLET PO SCH (20:21)
[2017-08-14] MEDS: INSULIN GLARGINE 300 UNITS/3 ML INSULN.PEN. SQ SCH (20:23)
--- NOTE | 2017-08-14 21:08 | PDOC ---
Exam Note: Eddie Note: Please also refer to the separate dictated note~for this date of service dictated separately.~Patient seen individually. Discussed the patient with Nursing staff reviewed the chart.~Reviewed interim history and current functioning. Reviewed vital signs,~Labs/ Radiology~and current medications noted below. Continue current treatment with the changes noted in the dictated addendum note Assessment: Vital Signs: Vital Signs Date Time Temp Pulse Resp B/P (MAP) Pulse Ox O2 Delivery O2 Flow Rate FiO2 08/14/17 16:22 98.4 83 18 125/58 (80) 98 08/14/17 05:58 Room Air I&O Intake and Output 08/14/17 07:00 Intake Total 1200 ml Balance 1200 ml Intake Oral 1200 ml Labs: Laboratory Tests Test 08/14/17 07:25 08/14/17 11:34 08/14/17 16:47 08/14/17 19:24 Glucose (Fingerstick) 92 mg/dL (70-99) 191 mg/dL (70-99) H 118 mg/dL (70-99) H 122 mg/dL (70-99) H Current Medications: Meds: Current Medications Acetaminophen (Tylenol) 650 mg PRN Q6HRS PRN PO PAIN / TEMP Last administered on 08/05/17at 05:46; Start 07/25/17 at 19:45 Multi-Ingredient Ointment (Analgesic [place]) 1 nelson PRN QID PRN TP MUSCLE PAIN; Start 07/25/17 at 19:45 Al Hydroxide/Mg Hydroxide (Mylanta Plus Xs) 15 ml PRN AFTMEALHC PRN PO DYSPEPSIA; Start 07/25/17 at 19:45 Magnesium Hydroxide (Milk Of Magnesia) 2,400 mg PRN QHS PRN PO CONSTIPATION; Start 07/25/17 at 19:45 Donepezil HCl (Aricept) 10 mg QHS PO Last administered on 08/14/17at 20:21; Start 07/25/17 at 22:00 Citalopram Hydrobromide (CeleXA) 40 mg DAILYWSUP PO Last administered on at 16:31; Start 07/26/17 at 17:00; Stop 07/27/17 at 18:10; Status DC Melatonin 6 mg QHS PO Last administered on 08/14/17at 20:21; Start 07/25/17 at 22 :00 Acetaminophen/ Hydrocodone Bitart (Lortab 5/325) 1 tab PRN Q6HRS PRN PO PAIN; Start 07/25/17 at 21:45 Insulin Glargine (Lantus) 5 units QHS SQ Last administered on 08/14/17 20:23; Start 07/25/17 at 21:00 Insulin Human Lispro (HumaLOG) 2 units QIDACHS SQ Last administered on 20:23; Start 07/25/17 at 21:00 Insulin Human Lispro (HumaLOG) 100 units QIDACHS SQ ; Start 07/26/17 at 07:30; Stop 07/26/17 at 07:30; Status DC Levothyroxine Sodium (Synthroid) 75 mcg DAILYAC PO Last administered on 08:45; Start 07/26/17 at 07:30; Stop 07/26/17 at 11:21; Status DC Lisinopril (Prinivil) 5 mg DAILY PO Last administered on 08/13/17 09:54; Start 07/26/17 at 09:00 Ondansetron HCl (Zofran Odt) 4 mg PRN Q8HRS PRN PO NAUSEA/VOMITING; Start 07/25 at 21:45 Polyethylene Glycol (miraLAX) 17 gm PRN DAILY PRN PO CONSTIPATION; Start at 21:45 Meclizine HCl (Antivert) 25 mg BID PO Last administered on 08/14/17 20:21; Start 07/25/17 at 22:15 Insulin Human Lispro (HumaLOG) 0-12 UNITS QIDACHS SQ ; Start 07/25/17 at 21:00 Dextrose 12.5 gm PRN Q15MIN PRN IV SEE COMMENTS; Start 07/25/17 at 22:00 Bupropion HCl (Wellbutrin Xl) 150 mg DAILY PO Last administered on 08/02/17at 08 :49; Start 07/26/17 at 09:00; Stop 08/02/17 at 19:03; Status DC Levothyroxine Sodium (Synthroid) 75 mcg DAILY06 PO Last administered on 05:50; Start 07/27/17 at 06:00 Cyanocobalamin (Vitamin B-12) 1,000 mcg WEEKLY IM Last administered on 09:30; Start 08/02/17 at 09:00 Vitamin D (Vitamin D3) 50,000 unit WEEKLY PO Last administered on 08/09/17 09: 30; Start 07/26/17 at 19:00 Sertraline HCl (Zoloft) 50 mg DAILY PO Last administered on 08/14/17 09:19; Start 07/28/17 at 09:00 Olanzapine (ZyPREXA ZYDIS) 1.25 mg PRN Q2HR PRN PO ANXIETY / AGITATION; Start 07/27/17 at 18:15 Ropinirole HCl (Requip) 0.25 mg TID PO Last administered on 08/14/17 20:21; Start 07/28/17 at 21:00 Medroxyprogesterone Acetate (Provera) 2.5 mg DAILY PO Last administered on 07/31at 08:07; Start 07/29/17 at 09:00; Stop 07/31/17 at 17:51; Status DC Medroxyprogesterone Acetate (Provera) 5 mg DAILY PO Last administered on at 08:46; Start 08/01/17 at 09:00; Stop 08/03/17 at 08:10; Status DC Primidone (Mysoline) 25 mg DAILY PO Last administered on 08/14/17 09:19; Start 08/01/17 at 09:00 Medroxyprogesterone Acetate (Provera) 7.5 mg DAILY PO Last administered on 08:01; Start 08/03/17 at 09:00; Stop 08/10/17 at 18:52; Status DC Quetiapine Fumarate (SEROquel) 12.5 mg DAILY PO Last administered on 08/03/17at 08:13; Start 08/03/17 at 09:00; Stop 08/03/17 at 19:05; Status DC Quetiapine Fumarate (SEROquel) 12.5 mg TID@0900,1300,1700 PO Last administered on 08/13/17 17:18; Start 08/04/17 at 09:00; Stop 08/13/17 at 18:32; Status DC Divalproex Sodium (Depakote Er) 500 mg QHS PO Last administered on 08/06/17 21 :22; Start 08/04/17 at 21:00; Stop 08/07/17 at 18:10; Status DC Divalproex Sodium (Depakote Er) 1,000 mg QHS PO Last administered on 08/14/17at 20:21; Start 08/07/17 at 21:00 Tamsulosin HCl (Flomax) 0.4 mg QHS PO Last administered on 08/14/17 20:21; Start 08/09/17 at 21:00 Medroxyprogesterone Acetate (Provera) 10 mg DAILY PO Last administered on at 09:52; Start 08/11/17 at 09:00; Stop 08/13/17 at 18:32; Status DC Medroxyprogesterone Acetate (Provera) 12.5 mg DAILY PO Last administered on 08/14 09:22; Start 08/14/17 at 09:00 Quetiapine Fumarate (SEROquel) 25 mg BID@0900,1700 PO Last administered on at 17:45; Start 08/14/17 at 09:00 Quetiapine Fumarate (SEROquel) 12.5 mg DAILY@1300 PO Last administered on at 13:44; Start 08/14/17 at 13:00 Active Scripts Active Reported Wellbutrin Xl (Bupropion Hcl) 150 Mg Tab.er.24h 150 Mg PO DAILY Lantus Solostar (Insulin Glargine,Hum.rec.anlog) 100 Unit/1 Ml Insuln.pen 5 Unit SQ QHS Humalog (Insulin Lispro) 100 Unit/1 Ml Insuln.pen 2 Unit SQ QIDACHS Humalog (Insulin Lispro) 100 Unit/1 Ml Insuln.pen 0-12 Unit SQ QIDACHS Sliding scale before meals and at bedtime: >200= 4 units >300= 8 units >400= 12 units and call doctor Hydrocodone-Apap 5-325 (Hydrocodone Bit/Acetaminophen) 1 Each Tablet 1 Tab PO PRN Q6HRS PRN Levothyroxine Sodium 75 Mcg Tablet 75 Mcg PO DAILYAC Lisinopril 5 Mg Tablet 5 Mg PO DAILY Zofran Odt (Ondansetron) 4 Mg Tab.rapdis 4 Mg PO PRN Q8HRS PRN Miralax (Polyethylene Glycol 3350) 17 Gm Powd.pack 17 Gm PO PRN DAILY PRN Meclizine Hcl 25 Mg Tablet 25 Mg PO BID Melatonin 3 Mg Tablet 6 Mg PO QHS Donepezil Hcl 10 Mg Tablet 10 Mg PO QHS Escitalopram Oxalate 20 Mg Tablet 20 Mg PO DAILYWSUP I have reviewed the current psychotropics carefully including drug interactions. Risk benefit ratio favors no change other than as noted in my dictated progress note. Diagnosis: Problems: (1) Anxiety disorder (2) Impulse control disorder (3) Dementia, vascular, with depression (4) Dementia, vascular, with delusions (5) Dementia in Alzheimer's disease with depression (6) Dementia in Alzheimer's disease with delusions (7) Major depressive disorder, recurrent episode TEZ MATHEWS MD August 14, 2017 21:08
--- NOTE | 2017-08-15 00:34 | PN ---
DATE: 08/13/2017 This is a late entry of 08/13/2017 covers elements not covered in my initial note of 08/13/2017. SUBJECTIVE: I met with the patient in his room the evening of 08/13/2017. The patient continues to be somewhat sexually inappropriate. Per nursing report, he tried to lure even a male patient to his room and was later found masturbating in his bathroom. REVIEW OF SYSTEMS: Ambulation impaired, in wheelchair. No CV, , pulmonary, eye, ENT system symptoms on review. He is sitting in a darkened room and I removed, pushed open the curtains in his room let the sunshine in and he was quite thankful for this and animated. MENTAL STATUS EXAM: Oriented to himself and situation. Speech has some latency, coherent. Abstraction fair, computation impaired, language function intact, attention span short. Mood and affect somewhat withdrawn at times, but impulsive and sexually inappropriate as noted. LABORATORY DATA: Reviewed. IMPRESSION: Unchanged from initial note. PLAN: Increase Provera from 10 mg a day to 12.5 mg a day, Seroquel from 12.5 mg t.i.d. to 25 mg daily, 12.5 mg daily as a mood stabilizer. Rest unchanged from initial note. TEZ MATHEWS MD DR: IAN/elvis JOB#: [id number] / [id number]
[2017-08-15 05:53] VITALS: BP 146/66
[2017-08-15] MEDS: LEVOTHYROXINE 75 MCG TABLET PO SCH (06:05)
[2017-08-15] MEDS: INSULIN LISPRO 300 UNITS/3 ML INSULN.PEN. SQ SCH ×8 (07:30→20:04)
[2017-08-15] MEDS: PRIMIDONE 50 MG TABLET PO SCH (08:15)
[2017-08-15] MEDS: MECLIZINE 12.5 MG TABLET. PO SCH ×2 (08:15→20:00)
[2017-08-15] MEDS: rOPINIRole 0.25 MG TABLET. PO SCH ×3 (08:15→20:00)
[2017-08-15] MEDS: QUEtiapine 25 MG TABLET. PO SCH ×3 (08:15→17:19)
[2017-08-15] MEDS: medroxyPROGESTERone 5 MG TABLET PO SCH (08:16)
[2017-08-15] MEDS: LISINOPRIL 5 MG TABLET. PO SCH (08:16)
[2017-08-15] MEDS: SERTRALINE 50 MG TABLET. PO SCH (08:16)
[2017-08-15 18:27] VITALS: BP 116/59
[2017-08-15] MEDS: DIVALPROEX ER 500 MG TAB.ER.24H PO SCH (20:00)
[2017-08-15] MEDS: MELATONIN 3 MG TABLET PO SCH (20:00)
[2017-08-15] MEDS: TAMSULOSIN 0.4 MG CAP.ER.24H. PO SCH (20:00)
[2017-08-15] MEDS: DONEPEZIL HCL 10 MG TABLET PO SCH (20:00)
[2017-08-15] MEDS: INSULIN GLARGINE 300 UNITS/3 ML INSULN.PEN. SQ SCH (20:04)
--- NOTE | 2017-08-15 22:28 | PDOC ---
Exam Note: Eddie Note: Please also refer to the separate dictated note~for this date of service dictated separately.~Patient seen individually. Discussed the patient with Nursing staff reviewed the chart.~Reviewed interim history and current functioning. Reviewed vital signs,~Labs/ Radiology~and current medications noted below. Continue current treatment with the changes noted in the dictated addendum note Assessment: Vital Signs: Vital Signs Date Time Temp Pulse Resp B/P (MAP) Pulse Ox O2 Delivery O2 Flow Rate FiO2 08/15/17 18:27 97.5 71 18 116/59 (78) 99 08/15/17 05:53 Room Air I&O Intake and Output 08/15/17 07:00 Intake Total 1320 ml Balance 1320 ml Intake Oral 1320 ml Labs: Laboratory Tests Test 08/15/17 07:35 08/15/17 11:40 08/15/17 17:12 08/15/17 19:24 Glucose (Fingerstick) 106 mg/dL (70-99) H 96 mg/dL (70-99) 147 mg/dL (70-99) H 136 mg/dL (70-99) H Current Medications: Meds: Current Medications Acetaminophen (Tylenol) 650 mg PRN Q6HRS PRN PO PAIN / TEMP Last administered on 08/05/17at 05:46; Start 07/25/17 at 19:45 Multi-Ingredient Ointment (Analgesic [place]) 1 nelson PRN QID PRN TP MUSCLE PAIN; Start 07/25/17 at 19:45 Al Hydroxide/Mg Hydroxide (Mylanta Plus Xs) 15 ml PRN AFTMEALHC PRN PO DYSPEPSIA; Start 07/25/17 at 19:45 Magnesium Hydroxide (Milk Of Magnesia) 2,400 mg PRN QHS PRN PO CONSTIPATION; Start 07/25/17 at 19:45 Donepezil HCl (Aricept) 10 mg QHS PO Last administered on 08/15/17at 20:00; Start 07/25/17 at 22:00 Citalopram Hydrobromide (CeleXA) 40 mg DAILYWSUP PO Last administered on at 16:31; Start 07/26/17 at 17:00; Stop 07/27/17 at 18:10; Status DC Melatonin 6 mg QHS PO Last administered on 08/15/17at 20:00; Start 07/25/17 at 22 :00 Acetaminophen/ Hydrocodone Bitart (Lortab 5/325) 1 tab PRN Q6HRS PRN PO PAIN; Start 07/25/17 at 21:45 Insulin Glargine (Lantus) 5 units QHS SQ Last administered on 08/15/17 20:04; Start 07/25/17 at 21:00 Insulin Human Lispro (HumaLOG) 2 units QIDACHS SQ Last administered on 20:03; Start 07/25/17 at 21:00 Insulin Human Lispro (HumaLOG) 100 units QIDACHS SQ ; Start 07/26/17 at 07:30; Stop 07/26/17 at 07:30; Status DC Levothyroxine Sodium (Synthroid) 75 mcg DAILYAC PO Last administered on 08:45; Start 07/26/17 at 07:30; Stop 07/26/17 at 11:21; Status DC Lisinopril (Prinivil) 5 mg DAILY PO Last administered on 08/15/17 08:16; Start 07/26/17 at 09:00 Ondansetron HCl (Zofran Odt) 4 mg PRN Q8HRS PRN PO NAUSEA/VOMITING; Start 07/25 at 21:45 Polyethylene Glycol (miraLAX) 17 gm PRN DAILY PRN PO CONSTIPATION; Start at 21:45 Meclizine HCl (Antivert) 25 mg BID PO Last administered on 08/15/17 20:00; Start 07/25/17 at 22:15 Insulin Human Lispro (HumaLOG) 0-12 UNITS QIDACHS SQ ; Start 07/25/17 at 21:00 Dextrose 12.5 gm PRN Q15MIN PRN IV SEE COMMENTS; Start 07/25/17 at 22:00 Bupropion HCl (Wellbutrin Xl) 150 mg DAILY PO Last administered on 08/02/17at 08 :49; Start 07/26/17 at 09:00; Stop 08/02/17 at 19:03; Status DC Levothyroxine Sodium (Synthroid) 75 mcg DAILY06 PO Last administered on 06:05; Start 07/27/17 at 06:00 Cyanocobalamin (Vitamin B-12) 1,000 mcg WEEKLY IM Last administered on 09:30; Start 08/02/17 at 09:00 Vitamin D (Vitamin D3) 50,000 unit WEEKLY PO Last administered on 08/09/17 09: 30; Start 07/26/17 at 19:00 Sertraline HCl (Zoloft) 50 mg DAILY PO Last administered on 08/15/17 08:16; Start 07/28/17 at 09:00 Olanzapine (ZyPREXA ZYDIS) 1.25 mg PRN Q2HR PRN PO ANXIETY / AGITATION; Start 07/27/17 at 18:15 Ropinirole HCl (Requip) 0.25 mg TID PO Last administered on 08/15/17at 20:00; Start 07/28/17 at 21:00 Medroxyprogesterone Acetate (Provera) 2.5 mg DAILY PO Last administered on 07/31at 08:07; Start 07/29/17 at 09:00; Stop 07/31/17 at 17:51; Status DC Medroxyprogesterone Acetate (Provera) 5 mg DAILY PO Last administered on at 08:46; Start 08/01/17 at 09:00; Stop 08/03/17 at 08:10; Status DC Primidone (Mysoline) 25 mg DAILY PO Last administered on 08/15/17at 08:15; Start 08/01/17 at 09:00 Medroxyprogesterone Acetate (Provera) 7.5 mg DAILY PO Last administered on at 08:01; Start 08/03/17 at 09:00; Stop 08/10/17 at 18:52; Status DC Quetiapine Fumarate (SEROquel) 12.5 mg DAILY PO Last administered on 08/03/17at 08:13; Start 08/03/17 at 09:00; Stop 08/03/17 at 19:05; Status DC Quetiapine Fumarate (SEROquel) 12.5 mg TID@0900,1300,1700 PO Last administered on 08/13/17 17:18; Start 08/04/17 at 09:00; Stop 08/13/17 at 18:32; Status DC Divalproex Sodium (Depakote Er) 500 mg QHS PO Last administered on 08/06/17at 21 :22; Start 08/04/17 at 21:00; Stop 08/07/17 at 18:10; Status DC Divalproex Sodium (Depakote Er) 1,000 mg QHS PO Last administered on 08/15/17at 20:00; Start 08/07/17 at 21:00 Tamsulosin HCl (Flomax) 0.4 mg QHS PO Last administered on 08/15/17at 20:00; Start 08/09/17 at 21:00 Medroxyprogesterone Acetate (Provera) 10 mg DAILY PO Last administered on at 09:52; Start 08/11/17 at 09:00; Stop 08/13/17 at 18:32; Status DC Medroxyprogesterone Acetate (Provera) 12.5 mg DAILY PO Last administered on 08/15at 08:16; Start 08/14/17 at 09:00; Stop 08/15/17 at 18:25; Status DC Quetiapine Fumarate (SEROquel) 25 mg BID@0900,1700 PO Last administered on at 17:19; Start 08/14/17 at 09:00 Quetiapine Fumarate (SEROquel) 12.5 mg DAILY@1300 PO Last administered on at 13:44; Start 08/14/17 at 13:00 Medroxyprogesterone Acetate (Provera) 15 mg DAILY PO ; Start 08/16/17 at 09:00 Active Scripts Active Reported Wellbutrin Xl (Bupropion Hcl) 150 Mg Tab.er.24h 150 Mg PO DAILY Lantus Solostar (Insulin Glargine,Hum.rec.anlog) 100 Unit/1 Ml Insuln.pen 5 Unit SQ QHS Humalog (Insulin Lispro) 100 Unit/1 Ml Insuln.pen 2 Unit SQ QIDACHS Humalog (Insulin Lispro) 100 Unit/1 Ml Insuln.pen 0-12 Unit SQ QIDACHS Sliding scale before meals and at bedtime: >200= 4 units >300= 8 units >400= 12 units and call doctor Hydrocodone-Apap 5-325 (Hydrocodone Bit/Acetaminophen) 1 Each Tablet 1 Tab PO PRN Q6HRS PRN Levothyroxine Sodium 75 Mcg Tablet 75 Mcg PO DAILYAC Lisinopril 5 Mg Tablet 5 Mg PO DAILY Zofran Odt (Ondansetron) 4 Mg Tab.rapdis 4 Mg PO PRN Q8HRS PRN Miralax (Polyethylene Glycol 3350) 17 Gm Powd.pack 17 Gm PO PRN DAILY PRN Meclizine Hcl 25 Mg Tablet 25 Mg PO BID Melatonin 3 Mg Tablet 6 Mg PO QHS Donepezil Hcl 10 Mg Tablet 10 Mg PO QHS Escitalopram Oxalate 20 Mg Tablet 20 Mg PO DAILYWSUP I have reviewed the current psychotropics carefully including drug interactions. Risk benefit ratio favors no change other than as noted in my dictated progress note. Diagnosis: Problems: (1) Anxiety disorder (2) Impulse control disorder (3) Dementia, vascular, with depression (4) Dementia, vascular, with delusions (5) Dementia in Alzheimer's disease with depression (6) Dementia in Alzheimer's disease with delusions (7) Major depressive disorder, recurrent episode TEZ MATHEWS MD August 15, 2017 22:28
--- NOTE | 2017-08-16 03:20 | PN ---
DATE: 08/14/2017 This is a late entry of 08/14/2017 covers elements not covered in my initial note of 08/14/2017. SUBJECTIVE: I met with the patient in the evening. The patient slept 7-1/2 hours, has been somewhat withdrawn. No sexually inappropriate behaviors noted. REVIEW OF SYSTEMS: Ambulation impaired, in wheelchair. No CV, , pulmonary, eye, ENT system symptoms on review, not very verbal as I met with him in his room. MENTAL STATUS EXAM: Oriented to himself and situation. Speech moderate latency, often responses monosyllabic. Abstraction fair, computation impaired, language function intact, attention span short. Mood and affect remains somewhat dysphoric. LABORATORY DATA: Reviewed. IMPRESSION: Unchanged from initial note. PLAN: Continue current psychotropics. Valproic acid level therapeutic at 52. MAN Sunny MATHEWS MD DR: IAN/elvis JOB#: [id number] / [id number]
[2017-08-16 06:00] VITALS: BP 122/58
[2017-08-16] MEDS: LEVOTHYROXINE 75 MCG TABLET PO SCH (06:00)
[2017-08-16] MEDS: INSULIN LISPRO 300 UNITS/3 ML INSULN.PEN. SQ SCH ×8 (07:30→21:01)
[2017-08-16] MEDS: CYANOCOBALAMIN (VITAMIN B-12) 1,000 MCG/ML VIAL IM SCH (08:45)
[2017-08-16] MEDS: LISINOPRIL 5 MG TABLET. PO SCH (08:45)
[2017-08-16] MEDS: MECLIZINE 12.5 MG TABLET. PO SCH ×2 (08:45→20:53)
[2017-08-16] MEDS: PRIMIDONE 50 MG TABLET PO SCH (08:45)
[2017-08-16] MEDS: SERTRALINE 50 MG TABLET. PO SCH (08:46)
[2017-08-16] MEDS: CHOLECALCIFEROL (VITAMIN D3) 50,000 UNIT CAPSULE PO SCH (08:46)
[2017-08-16] MEDS: medroxyPROGESTERone 5 MG TABLET PO SCH (08:46)
[2017-08-16] MEDS: rOPINIRole 0.25 MG TABLET. PO SCH ×3 (08:46→20:53)
[2017-08-16] MEDS: QUEtiapine 25 MG TABLET. PO SCH ×3 (08:46→18:15)
[2017-08-16 18:26] VITALS: BP 125/50
[2017-08-16] MEDS: DIVALPROEX ER 500 MG TAB.ER.24H PO SCH (20:53)
[2017-08-16] MEDS: TAMSULOSIN 0.4 MG CAP.ER.24H. PO SCH (20:53)
[2017-08-16] MEDS: MELATONIN 3 MG TABLET PO SCH (20:53)
[2017-08-16] MEDS: DONEPEZIL HCL 10 MG TABLET PO SCH (20:53)
[2017-08-16] MEDS: INSULIN GLARGINE 300 UNITS/3 ML INSULN.PEN. SQ SCH (20:57)
--- NOTE | 2017-08-16 21:02 | PDOC ---
Exam Note: Eddie Note: Please also refer to the separate dictated note~for this date of service dictated separately.~Patient seen individually. Discussed the patient with Nursing staff reviewed the chart.~Reviewed interim history and current functioning. Reviewed vital signs,~Labs/ Radiology~and current medications noted below. Continue current treatment with the changes noted in the dictated addendum note Assessment: Vital Signs: Vital Signs Date Time Temp Pulse Resp B/P (MAP) Pulse Ox O2 Delivery O2 Flow Rate FiO2 08/16/17 18:26 97.4 71 20 125/50 (75) 98 08/15/17 05:53 Room Air I&O Intake and Output 08/16/17 07:00 Intake Total 1140 ml Balance 1140 ml Intake Oral 1140 ml # Voids 1 # Bowel Movements 2 Labs: Laboratory Tests Test 08/16/17 07:35 08/16/17 11:34 08/16/17 16:24 08/16/17 19:26 Glucose (Fingerstick) 88 mg/dL (70-99) 195 mg/dL (70-99) H 98 mg/dL (70-99) 164 mg/dL (70-99) H Current Medications: Meds: Current Medications Acetaminophen (Tylenol) 650 mg PRN Q6HRS PRN PO PAIN / TEMP Last administered on 08/05/17at 05:46; Start 07/25/17 at 19:45 Multi-Ingredient Ointment (Analgesic [place]) 1 nelson PRN QID PRN TP MUSCLE PAIN; Start 07/25/17 at 19:45 Al Hydroxide/Mg Hydroxide (Mylanta Plus Xs) 15 ml PRN AFTMEALHC PRN PO DYSPEPSIA; Start 07/25/17 at 19:45 Magnesium Hydroxide (Milk Of Magnesia) 2,400 mg PRN QHS PRN PO CONSTIPATION; Start 07/25/17 at 19:45 Donepezil HCl (Aricept) 10 mg QHS PO Last administered on 08/15/17at 20:00; Start 07/25/17 at 22:00 Citalopram Hydrobromide (CeleXA) 40 mg DAILYWSUP PO Last administered on at 16:31; Start 07/26/17 at 17:00; Stop 07/27/17 at 18:10; Status DC Melatonin 6 mg QHS PO Last administered on 08/15/17 20:00; Start 07/25/17 at 22 :00 Acetaminophen/ Hydrocodone Bitart (Lortab 5/325) 1 tab PRN Q6HRS PRN PO PAIN; Start 07/25/17 at 21:45 Insulin Glargine (Lantus) 5 units QHS SQ Last administered on 08/15/17 20:04; Start 07/25/17 at 21:00 Insulin Human Lispro (HumaLOG) 2 units QIDACHS SQ Last administered on 12:59; Start 07/25/17 at 21:00 Insulin Human Lispro (HumaLOG) 100 units QIDACHS SQ ; Start 07/26/17 at 07:30; Stop 07/26/17 at 07:30; Status DC Levothyroxine Sodium (Synthroid) 75 mcg DAILYAC PO Last administered on 08:45; Start 07/26/17 at 07:30; Stop 07/26/17 at 11:21; Status DC Lisinopril (Prinivil) 5 mg DAILY PO Last administered on 08/16/17 08:45; Start 07/26/17 at 09:00 Ondansetron HCl (Zofran Odt) 4 mg PRN Q8HRS PRN PO NAUSEA/VOMITING; Start 07/25 at 21:45 Polyethylene Glycol (miraLAX) 17 gm PRN DAILY PRN PO CONSTIPATION; Start at 21:45 Meclizine HCl (Antivert) 25 mg BID PO Last administered on 08/16/17 08:45; Start 07/25/17 at 22:15 Insulin Human Lispro (HumaLOG) 0-12 UNITS QIDACHS SQ ; Start 07/25/17 at 21:00 Dextrose 12.5 gm PRN Q15MIN PRN IV SEE COMMENTS; Start 07/25/17 at 22:00 Bupropion HCl (Wellbutrin Xl) 150 mg DAILY PO Last administered on 08/02/17at 08 :49; Start 07/26/17 at 09:00; Stop 08/02/17 at 19:03; Status DC Levothyroxine Sodium (Synthroid) 75 mcg DAILY06 PO Last administered on at 06:00; Start 07/27/17 at 06:00 Cyanocobalamin (Vitamin B-12) 1,000 mcg WEEKLY IM Last administered on 08:45; Start 08/02/17 at 09:00 Vitamin D (Vitamin D3) 50,000 unit WEEKLY PO Last administered on 08/16/17at 08: 46; Start 07/26/17 at 19:00 Sertraline HCl (Zoloft) 50 mg DAILY PO Last administered on 08/16/17 08:46; Start 07/28/17 at 09:00 Olanzapine (ZyPREXA ZYDIS) 1.25 mg PRN Q2HR PRN PO ANXIETY / AGITATION; Start 07/27/17 at 18:15 Ropinirole HCl (Requip) 0.25 mg TID PO Last administered on 08/16/17at 12:57; Start 07/28/17 at 21:00 Medroxyprogesterone Acetate (Provera) 2.5 mg DAILY PO Last administered on 07/31at 08:07; Start 07/29/17 at 09:00; Stop 07/31/17 at 17:51; Status DC Medroxyprogesterone Acetate (Provera) 5 mg DAILY PO Last administered on at 08:46; Start 08/01/17 at 09:00; Stop 08/03/17 at 08:10; Status DC Primidone (Mysoline) 25 mg DAILY PO Last administered on 08/16/17at 08:45; Start 08/01/17 at 09:00 Medroxyprogesterone Acetate (Provera) 7.5 mg DAILY PO Last administered on at 08:01; Start 08/03/17 at 09:00; Stop 08/10/17 at 18:52; Status DC Quetiapine Fumarate (SEROquel) 12.5 mg DAILY PO Last administered on 08/03/17at 08:13; Start 08/03/17 at 09:00; Stop 08/03/17 at 19:05; Status DC Quetiapine Fumarate (SEROquel) 12.5 mg TID@0900,1300,1700 PO Last administered on 08/13/17 17:18; Start 08/04/17 at 09:00; Stop 08/13/17 at 18:32; Status DC Divalproex Sodium (Depakote Er) 500 mg QHS PO Last administered on 08/06/17at 21 :22; Start 08/04/17 at 21:00; Stop 08/07/17 at 18:10; Status DC Divalproex Sodium (Depakote Er) 1,000 mg QHS PO Last administered on 08/15/17at 20:00; Start 08/07/17 at 21:00 Tamsulosin HCl (Flomax) 0.4 mg QHS PO Last administered on 08/15/17at 20:00; Start 08/09/17 at 21:00 Medroxyprogesterone Acetate (Provera) 10 mg DAILY PO Last administered on at 09:52; Start 08/11/17 at 09:00; Stop 08/13/17 at 18:32; Status DC Medroxyprogesterone Acetate (Provera) 12.5 mg DAILY PO Last administered on 08/15at 08:16; Start 08/14/17 at 09:00; Stop 08/15/17 at 18:25; Status DC Quetiapine Fumarate (SEROquel) 25 mg BID@0900,1700 PO Last administered on 08/16at 08:46; Start 08/14/17 at 09:00; Stop 08/16/17 at 13:08; Status DC Quetiapine Fumarate (SEROquel) 12.5 mg DAILY@1300 PO Last administered on at 12:57; Start 08/14/17 at 13:00; Stop 08/16/17 at 13:08; Status DC Medroxyprogesterone Acetate (Provera) 15 mg DAILY PO Last administered on at 08:46; Start 08/16/17 at 09:00 Quetiapine Fumarate (SEROquel) 37.5 mg BID@0900,1700 PO Last administered on 01/24at 18:15; Start 08/16/17 at 17:00 Quetiapine Fumarate (SEROquel) 25 mg DAILY@1300 PO ; Start 08/17/17 at 13:00 Active Scripts Active Reported Wellbutrin Xl (Bupropion Hcl) 150 Mg Tab.er.24h 150 Mg PO DAILY Lantus Solostar (Insulin Glargine,Hum.rec.anlog) 100 Unit/1 Ml Insuln.pen 5 Unit SQ QHS Humalog (Insulin Lispro) 100 Unit/1 Ml Insuln.pen 2 Unit SQ QIDACHS Humalog (Insulin Lispro) 100 Unit/1 Ml Insuln.pen 0-12 Unit SQ QIDACHS Sliding scale before meals and at bedtime: >200= 4 units >300= 8 units >400= 12 units and call doctor Hydrocodone-Apap 5-325 (Hydrocodone Bit/Acetaminophen) 1 Each Tablet 1 Tab PO PRN Q6HRS PRN Levothyroxine Sodium 75 Mcg Tablet 75 Mcg PO DAILYAC Lisinopril 5 Mg Tablet 5 Mg PO DAILY Zofran Odt (Ondansetron) 4 Mg Tab.rapdis 4 Mg PO PRN Q8HRS PRN Miralax (Polyethylene Glycol 3350) 17 Gm Powd.pack 17 Gm PO PRN DAILY PRN Meclizine Hcl 25 Mg Tablet 25 Mg PO BID Melatonin 3 Mg Tablet 6 Mg PO QHS Donepezil Hcl 10 Mg Tablet 10 Mg PO QHS Escitalopram Oxalate 20 Mg Tablet 20 Mg PO DAILYWSUP I have reviewed the current psychotropics carefully including drug interactions. Risk benefit ratio favors no change other than as noted in my dictated progress note. Diagnosis: Problems: (1) Anxiety disorder (2) Impulse control disorder (3) Dementia, vascular, with depression (4) Dementia, vascular, with delusions (5) Dementia in Alzheimer's disease with depression (6) Dementia in Alzheimer's disease with delusions (7) Major depressive disorder, recurrent episode TEZ MATHEWS MD August 16, 2017 21:02
[2017-08-17 05:37] VITALS: BP 123/73
[2017-08-17] MEDS: LEVOTHYROXINE 75 MCG TABLET PO SCH (06:05)
[2017-08-17] MEDS: INSULIN LISPRO 300 UNITS/3 ML INSULN.PEN. SQ SCH ×8 (08:32→21:22)
[2017-08-17] MEDS: rOPINIRole 0.25 MG TABLET. PO SCH ×3 (08:59→21:14)
[2017-08-17] MEDS: medroxyPROGESTERone 5 MG TABLET PO SCH (08:59)
[2017-08-17] MEDS: QUEtiapine 25 MG TABLET. PO SCH ×3 (09:00→18:14)
[2017-08-17] MEDS: SERTRALINE 50 MG TABLET. PO SCH (09:00)
[2017-08-17] MEDS: LISINOPRIL 5 MG TABLET. PO SCH (09:00)
[2017-08-17] MEDS: PRIMIDONE 50 MG TABLET PO SCH (09:00)
[2017-08-17] MEDS: MECLIZINE 12.5 MG TABLET. PO SCH ×2 (09:00→21:14)
[2017-08-17 16:54] VITALS: BP 120/55
--- NOTE | 2017-08-17 20:58 | PDOC ---
Exam Note: Eddie Note: Please also refer to the separate dictated note~for this date of service dictated separately.~Patient seen individually. Discussed the patient with Nursing staff reviewed the chart.~Reviewed interim history and current functioning. Reviewed vital signs,~Labs/ Radiology~and current medications noted below. Continue current treatment with the changes noted in the dictated addendum note Assessment: Vital Signs: Vital Signs Date Time Temp Pulse Resp B/P (MAP) Pulse Ox O2 Delivery O2 Flow Rate FiO2 08/17/17 16:54 97.8 73 16 120/55 (76) 99 08/15/17 05:53 Room Air I&O Intake and Output 08/17/17 07:00 Intake Total 780 ml Balance 780 ml Intake Oral 780 ml # Bowel Movements 1 Labs: Laboratory Tests Test 08/17/17 08:06 08/17/17 12:04 08/17/17 17:12 Glucose (Fingerstick) 95 mg/dL (70-99) 201 mg/dL (70-99) H 127 mg/dL (70-99) H Current Medications: Meds: Current Medications Acetaminophen (Tylenol) 650 mg PRN Q6HRS PRN PO PAIN / TEMP Last administered on 08/05/17at 05:46; Start 07/25/17 at 19:45 Multi-Ingredient Ointment (Analgesic [place]) 1 nelson PRN QID PRN TP MUSCLE PAIN; Start 07/25/17 at 19:45 Al Hydroxide/Mg Hydroxide (Mylanta Plus Xs) 15 ml PRN AFTMEALHC PRN PO DYSPEPSIA; Start 07/25/17 at 19:45 Magnesium Hydroxide (Milk Of Magnesia) 2,400 mg PRN QHS PRN PO CONSTIPATION; Start 07/25/17 at 19:45 Donepezil HCl (Aricept) 10 mg QHS PO Last administered on 08/16/17at 20:53; Start 07/25/17 at 22:00 Citalopram Hydrobromide (CeleXA) 40 mg DAILYWSUP PO Last administered on at 16:31; Start 07/26/17 at 17:00; Stop 07/27/17 at 18:10; Status DC Melatonin 6 mg QHS PO Last administered on 08/16/17at 20:53; Start 07/25/17 at 22:00 Acetaminophen/ Hydrocodone Bitart (Lortab 5/325) 1 tab PRN Q6HRS PRN PO PAIN; Start 07/25/17 at 21:45 Insulin Glargine (Lantus) 5 units QHS SQ Last administered on 08/16/17at 20:57; Start 07/25/17 at 21:00 Insulin Human Lispro (HumaLOG) 2 units QIDACHS SQ Last administered on at 18:16; Start 07/25/17 at 21:00 Insulin Human Lispro (HumaLOG) 100 units QIDACHS SQ ; Start 07/26/17 at 07:30; Stop 07/26/17 at 07:30; Status DC Levothyroxine Sodium (Synthroid) 75 mcg DAILYAC PO Last administered on at 08:45; Start 07/26/17 at 07:30; Stop 07/26/17 at 11:21; Status DC Lisinopril (Prinivil) 5 mg DAILY PO Last administered on 08/17/17at 09:00; Start 07/26/17 at 09:00 Ondansetron HCl (Zofran Odt) 4 mg PRN Q8HRS PRN PO NAUSEA/VOMITING; Start 07/25 at 21:45 Polyethylene Glycol (miraLAX) 17 gm PRN DAILY PRN PO CONSTIPATION; Start at 21:45 Meclizine HCl (Antivert) 25 mg BID PO Last administered on 08/17/17at 09:00; Start 07/25/17 at 22:15 Insulin Human Lispro (HumaLOG) 0-12 UNITS QIDACHS SQ Last administered on at 13:39; Start 07/25/17 at 21:00 Dextrose 12.5 gm PRN Q15MIN PRN IV SEE COMMENTS; Start 07/25/17 at 22:00 Bupropion HCl (Wellbutrin Xl) 150 mg DAILY PO Last administered on 08/02/17at 08 :49; Start 07/26/17 at 09:00; Stop 08/02/17 at 19:03; Status DC Levothyroxine Sodium (Synthroid) 75 mcg DAILY06 PO Last administered on at 06:05; Start 07/27/17 at 06:00 Cyanocobalamin (Vitamin B-12) 1,000 mcg WEEKLY IM Last administered on 08:45; Start 08/02/17 at 09:00 Vitamin D (Vitamin D3) 50,000 unit WEEKLY PO Last administered on 08/16/17 08: 46; Start 07/26/17 at 19:00 Sertraline HCl (Zoloft) 50 mg DAILY PO Last administered on 08/17/17at 09:00; Start 07/28/17 at 09:00 Olanzapine (ZyPREXA ZYDIS) 1.25 mg PRN Q2HR PRN PO ANXIETY / AGITATION; Start 07/27/17 at 18:15 Ropinirole HCl (Requip) 0.25 mg TID PO Last administered on 08/17/17at 13:37; Start 07/28/17 at 21:00 Medroxyprogesterone Acetate (Provera) 2.5 mg DAILY PO Last administered on 07/31at 08:07; Start 07/29/17 at 09:00; Stop 07/31/17 at 17:51; Status DC Medroxyprogesterone Acetate (Provera) 5 mg DAILY PO Last administered on at 08:46; Start 08/01/17 at 09:00; Stop 08/03/17 at 08:10; Status DC Primidone (Mysoline) 25 mg DAILY PO Last administered on 08/17/17 09:00; Start 08/01/17 at 09:00 Medroxyprogesterone Acetate (Provera) 7.5 mg DAILY PO Last administered on 08:01; Start 08/03/17 at 09:00; Stop 08/10/17 at 18:52; Status DC Quetiapine Fumarate (SEROquel) 12.5 mg DAILY PO Last administered on 08/03/17at 08:13; Start 08/03/17 at 09:00; Stop 08/03/17 at 19:05; Status DC Quetiapine Fumarate (SEROquel) 12.5 mg TID@0900,1300,1700 PO Last administered on 08/13/17 17:18; Start 08/04/17 at 09:00; Stop 08/13/17 at 18:32; Status DC Divalproex Sodium (Depakote Er) 500 mg QHS PO Last administered on 4/30/18at 21 :22; Start 08/04/17 at 21:00; Stop 08/07/17 at 18:10; Status DC Divalproex Sodium (Depakote Er) 1,000 mg QHS PO Last administered on 08/16/17at 20:53; Start 08/07/17 at 21:00 Tamsulosin HCl (Flomax) 0.4 mg QHS PO Last administered on 08/16/17at 20:53; Start 08/09/17 at 21:00 Medroxyprogesterone Acetate (Provera) 10 mg DAILY PO Last administered on at 09:52; Start 08/11/17 at 09:00; Stop 08/13/17 at 18:32; Status DC Medroxyprogesterone Acetate (Provera) 12.5 mg DAILY PO Last administered on 08/15at 08:16; Start 08/14/17 at 09:00; Stop 08/15/17 at 18:25; Status DC Quetiapine Fumarate (SEROquel) 25 mg BID@0900,1700 PO Last administered on 08/16at 08:46; Start 08/14/17 at 09:00; Stop 08/16/17 at 13:08; Status DC Quetiapine Fumarate (SEROquel) 12.5 mg DAILY@1300 PO Last administered on at 12:57; Start 08/14/17 at 13:00; Stop 08/16/17 at 13:08; Status DC Medroxyprogesterone Acetate (Provera) 15 mg DAILY PO Last administered on at 08:59; Start 08/16/17 at 09:00 Quetiapine Fumarate (SEROquel) 37.5 mg BID@0900,1700 PO Last administered on 02/24at 18:14; Start 08/16/17 at 17:00 Quetiapine Fumarate (SEROquel) 25 mg DAILY@1300 PO Last administered on at 13:37; Start 08/17/17 at 13:00 Active Scripts Active Reported Wellbutrin Xl (Bupropion Hcl) 150 Mg Tab.er.24h 150 Mg PO DAILY Lantus Solostar (Insulin Glargine,Hum.rec.anlog) 100 Unit/1 Ml Insuln.pen 5 Unit SQ QHS Humalog (Insulin Lispro) 100 Unit/1 Ml Insuln.pen 2 Unit SQ QIDACHS Humalog (Insulin Lispro) 100 Unit/1 Ml Insuln.pen 0-12 Unit SQ QIDACHS Sliding scale before meals and at bedtime: >200= 4 units >300= 8 units >400= 12 units and call doctor Hydrocodone-Apap 5-325 (Hydrocodone Bit/Acetaminophen) 1 Each Tablet 1 Tab PO PRN Q6HRS PRN Levothyroxine Sodium 75 Mcg Tablet 75 Mcg PO DAILYAC Lisinopril 5 Mg Tablet 5 Mg PO DAILY Zofran Odt (Ondansetron) 4 Mg Tab.rapdis 4 Mg PO PRN Q8HRS PRN Miralax (Polyethylene Glycol 3350) 17 Gm Powd.pack 17 Gm PO PRN DAILY PRN Meclizine Hcl 25 Mg Tablet 25 Mg PO BID Melatonin 3 Mg Tablet 6 Mg PO QHS Donepezil Hcl 10 Mg Tablet 10 Mg PO QHS Escitalopram Oxalate 20 Mg Tablet 20 Mg PO DAILYWSUP I have reviewed the current psychotropics carefully including drug interactions. Risk benefit ratio favors no change other than as noted in my dictated progress note. Diagnosis: Problems: (1) Anxiety disorder (2) Impulse control disorder (3) Dementia, vascular, with depression (4) Dementia, vascular, with delusions (5) Dementia in Alzheimer's disease with depression (6) Dementia in Alzheimer's disease with delusions (7) Major depressive disorder, recurrent episode TEZ MATHEWS MD August 17, 2017 20:58
[2017-08-17] MEDS: DIVALPROEX ER 500 MG TAB.ER.24H PO SCH (21:15)
[2017-08-17] MEDS: DONEPEZIL HCL 10 MG TABLET PO SCH (21:15)
[2017-08-17] MEDS: TAMSULOSIN 0.4 MG CAP.ER.24H. PO SCH (21:15)
[2017-08-17] MEDS: MELATONIN 3 MG TABLET PO SCH (21:15)
[2017-08-17] MEDS: INSULIN GLARGINE 300 UNITS/3 ML INSULN.PEN. SQ SCH (21:21)
[2017-08-18] MEDS: LEVOTHYROXINE 75 MCG TABLET PO SCH (05:34)
[2017-08-18 06:18] VITALS: BP 104/40
[2017-08-18] MEDS: INSULIN LISPRO 300 UNITS/3 ML INSULN.PEN. SQ SCH ×8 (07:58→20:51)
[2017-08-18] MEDS: rOPINIRole 0.25 MG TABLET. PO SCH ×3 (09:16→20:49)
[2017-08-18] MEDS: PRIMIDONE 50 MG TABLET PO SCH (09:17)
[2017-08-18] MEDS: medroxyPROGESTERone 5 MG TABLET PO SCH (09:17)
[2017-08-18] MEDS: LISINOPRIL 5 MG TABLET. PO SCH (09:17)
[2017-08-18] MEDS: SERTRALINE 50 MG TABLET. PO SCH (09:17)
[2017-08-18] MEDS: QUEtiapine 25 MG TABLET. PO SCH ×3 (09:18→16:58)
[2017-08-18] MEDS: MECLIZINE 12.5 MG TABLET. PO SCH ×2 (09:18→20:49)
--- NOTE | 2017-08-18 12:54 | PN ---
DATE: 08/16/2017 PSYCHIATRIC PROGRESS NOTE This is a late entry 08/16/2017, covers elements not covered in my initial note 08/16/2017. SUBJECTIVE: I met with the patient in the evening, staffed at treatment team meeting with the entire team in the morning. The patient remains somewhat labile, sexually inappropriate. REVIEW OF SYSTEMS: Ambulation impaired, in wheelchair. No CV, , pulmonary, eye system symptoms on review. MENTAL STATUS EXAM: Oriented to himself and situation. Speech moderate latency, often responses monosyllabic. Abstraction fair, computation impaired, language function intact. Mood and affect somewhat labile, withdrawn. LABORATORY DATA: Reviewed. IMPRESSION: Unchanged from initial note. PLAN: Increase Seroquel to 37.5 mg twice a day, 25 mg once a day. Rest unchanged from initial note. was increased. MAN Sunny MATHEWS MD DR: IAN/elvis JOB#: [id number] / [id number]
--- NOTE | 2017-08-18 13:03 | PN ---
DATE: 08/15/2017 This late entry, 08/15/2017, covers elements not covered in my initial note of 08/15/2017. SUBJECTIVE: I met with the patient in the evening. He has been demanding, irritable, trying to lure a male patient into his room and this other demented male patient made a statement to other patients "don't go near him, he is trying to f---you." REVIEW OF SYSTEMS: Ambulation impaired, in wheelchair. No CV, , pulmonary, eye, ENT system symptoms on review. Denies above sexual behaviors as I confronted him on this. Reliability poor. MENTAL STATUS EXAM: Oriented to himself and situation. Speech, moderate latency, often responses monosyllabic. Abstraction fair, computation impaired, language function intact. Mood and affect somewhat labile. LABORATORY DATA: Reviewed. IMPRESSION: Unchanged from initial note. PLAN: Increase Provera to 15 mg a day. Rest unchanged from initial note. MAN Sunny MATHEWS MD DR: IAN/elvis JOB#: [id number] / [id number]
[2017-08-18 16:13] VITALS: BP 100/66
[2017-08-18] MEDS: DONEPEZIL HCL 10 MG TABLET PO SCH (20:48)
[2017-08-18] MEDS: DIVALPROEX ER 500 MG TAB.ER.24H PO SCH (20:49)
[2017-08-18] MEDS: TAMSULOSIN 0.4 MG CAP.ER.24H. PO SCH (20:49)
[2017-08-18] MEDS: MELATONIN 3 MG TABLET PO SCH (20:49)
[2017-08-18] MEDS: INSULIN GLARGINE 300 UNITS/3 ML INSULN.PEN. SQ SCH (20:52)
--- NOTE | 2017-08-18 23:03 | PDOC ---
Exam Note: Eddie Note: Please also refer to the separate dictated note~for this date of service dictated separately.~Patient seen individually. Discussed the patient with Nursing staff reviewed the chart.~Reviewed interim history and current functioning. Reviewed vital signs,~Labs/ Radiology~and current medications noted below. Continue current treatment with the changes noted in the dictated addendum note Assessment: Vital Signs: Vital Signs Date Time Temp Pulse Resp B/P (MAP) Pulse Ox O2 Delivery O2 Flow Rate FiO2 08/18/17 16:13 98.1 84 18 100/66 (77) 100 08/15/17 05:53 Room Air I&O Intake and Output 08/18/17 07:00 Intake Total 1500 ml Balance 1500 ml Intake Oral 1500 ml Labs: Laboratory Tests Test 08/18/17 07:13 08/18/17 11:58 08/18/17 17:05 08/18/17 19:28 Glucose (Fingerstick) 87 mg/dL (70-99) 163 mg/dL (70-99) H 180 mg/dL (70-99) H 143 mg/dL (70-99) H Current Medications: Meds: Current Medications Acetaminophen (Tylenol) 650 mg PRN Q6HRS PRN PO PAIN / TEMP Last administered on 08/05/17at 05:46; Start 07/25/17 at 19:45 Multi-Ingredient Ointment (Analgesic [place]) 1 nelson PRN QID PRN TP MUSCLE PAIN; Start 07/25/17 at 19:45 Al Hydroxide/Mg Hydroxide (Mylanta Plus Xs) 15 ml PRN AFTMEALHC PRN PO DYSPEPSIA; Start 07/25/17 at 19:45 Magnesium Hydroxide (Milk Of Magnesia) 2,400 mg PRN QHS PRN PO CONSTIPATION; Start 07/25/17 at 19:45 Donepezil HCl (Aricept) 10 mg QHS PO Last administered on 08/18/17at 20:48; Start 07/25/17 at 22:00 Citalopram Hydrobromide (CeleXA) 40 mg DAILYWSUP PO Last administered on at 16:31; Start 07/26/17 at 17:00; Stop 07/27/17 at 18:10; Status DC Melatonin 6 mg QHS PO Last administered on 08/18/17at 20:49; Start 07/25/17 at 22:00 Acetaminophen/ Hydrocodone Bitart (Lortab 5/325) 1 tab PRN Q6HRS PRN PO PAIN; Start 07/25/17 at 21:45 Insulin Glargine (Lantus) 5 units QHS SQ Last administered on 08/18/17at 20:52; Start 07/25/17 at 21:00 Insulin Human Lispro (HumaLOG) 2 units QIDACHS SQ Last administered on 20:51; Start 07/25/17 at 21:00 Insulin Human Lispro (HumaLOG) 100 units QIDACHS SQ ; Start 07/26/17 at 07:30; Stop 07/26/17 at 07:30; Status DC Levothyroxine Sodium (Synthroid) 75 mcg DAILYAC PO Last administered on 08:45; Start 07/26/17 at 07:30; Stop 07/26/17 at 11:21; Status DC Lisinopril (Prinivil) 5 mg DAILY PO Last administered on 08/18/17 09:17; Start 07/26/17 at 09:00 Ondansetron HCl (Zofran Odt) 4 mg PRN Q8HRS PRN PO NAUSEA/VOMITING; Start 07/25 at 21:45 Polyethylene Glycol (miraLAX) 17 gm PRN DAILY PRN PO CONSTIPATION; Start at 21:45 Meclizine HCl (Antivert) 25 mg BID PO Last administered on 08/18/17at 20:49; Start 07/25/17 at 22:15 Insulin Human Lispro (HumaLOG) 0-12 UNITS QIDACHS SQ Last administered on at 13:39; Start 07/25/17 at 21:00 Dextrose 12.5 gm PRN Q15MIN PRN IV SEE COMMENTS; Start 07/25/17 at 22:00 Bupropion HCl (Wellbutrin Xl) 150 mg DAILY PO Last administered on 08/02/17at 08 :49; Start 07/26/17 at 09:00; Stop 08/02/17 at 19:03; Status DC Levothyroxine Sodium (Synthroid) 75 mcg DAILY06 PO Last administered on at 05:34; Start 07/27/17 at 06:00 Cyanocobalamin (Vitamin B-12) 1,000 mcg WEEKLY IM Last administered on at 08:45; Start 08/02/17 at 09:00 Vitamin D (Vitamin D3) 50,000 unit WEEKLY PO Last administered on 08/16/17at 08: 46; Start 07/26/17 at 19:00 Sertraline HCl (Zoloft) 50 mg DAILY PO Last administered on 08/18/17at 09:17; Start 07/28/17 at 09:00 Olanzapine (ZyPREXA ZYDIS) 1.25 mg PRN Q2HR PRN PO ANXIETY / AGITATION; Start 07/27/17 at 18:15 Ropinirole HCl (Requip) 0.25 mg TID PO Last administered on 08/18/17at 20:49; Start 07/28/17 at 21:00 Medroxyprogesterone Acetate (Provera) 2.5 mg DAILY PO Last administered on 07/31at 08:07; Start 07/29/17 at 09:00; Stop 07/31/17 at 17:51; Status DC Medroxyprogesterone Acetate (Provera) 5 mg DAILY PO Last administered on at 08:46; Start 08/01/17 at 09:00; Stop 08/03/17 at 08:10; Status DC Primidone (Mysoline) 25 mg DAILY PO Last administered on 08/18/17at 09:17; Start 08/01/17 at 09:00 Medroxyprogesterone Acetate (Provera) 7.5 mg DAILY PO Last administered on at 08:01; Start 08/03/17 at 09:00; Stop 08/10/17 at 18:52; Status DC Quetiapine Fumarate (SEROquel) 12.5 mg DAILY PO Last administered on 08/03/17at 08:13; Start 08/03/17 at 09:00; Stop 08/03/17 at 19:05; Status DC Quetiapine Fumarate (SEROquel) 12.5 mg TID@0900,1300,1700 PO Last administered on 08/13/17 17:18; Start 08/04/17 at 09:00; Stop 08/13/17 at 18:32; Status DC Divalproex Sodium (Depakote Er) 500 mg QHS PO Last administered on 08/06/17at 21 :22; Start 08/04/17 at 21:00; Stop 08/07/17 at 18:10; Status DC Divalproex Sodium (Depakote Er) 1,000 mg QHS PO Last administered on 08/18/17at 20:49; Start 08/07/17 at 21:00 Tamsulosin HCl (Flomax) 0.4 mg QHS PO Last administered on 08/18/17at 20:49; Start 08/09/17 at 21:00 Medroxyprogesterone Acetate (Provera) 10 mg DAILY PO Last administered on at 09:52; Start 08/11/17 at 09:00; Stop 08/13/17 at 18:32; Status DC Medroxyprogesterone Acetate (Provera) 12.5 mg DAILY PO Last administered on 08/15at 08:16; Start 08/14/17 at 09:00; Stop 08/15/17 at 18:25; Status DC Quetiapine Fumarate (SEROquel) 25 mg BID@0900,1700 PO Last administered on 08/16at 08:46; Start 08/14/17 at 09:00; Stop 08/16/17 at 13:08; Status DC Quetiapine Fumarate (SEROquel) 12.5 mg DAILY@1300 PO Last administered on at 12:57; Start 08/14/17 at 13:00; Stop 08/16/17 at 13:08; Status DC Medroxyprogesterone Acetate (Provera) 15 mg DAILY PO Last administered on at 09:17; Start 08/16/17 at 09:00 Quetiapine Fumarate (SEROquel) 37.5 mg BID@0900,1700 PO Last administered on 03/26at 16:58; Start 08/16/17 at 17:00 Quetiapine Fumarate (SEROquel) 25 mg DAILY@1300 PO Last administered on at 12:39; Start 08/17/17 at 13:00 Active Scripts Active Reported Wellbutrin Xl (Bupropion Hcl) 150 Mg Tab.er.24h 150 Mg PO DAILY Lantus Solostar (Insulin Glargine,Hum.rec.anlog) 100 Unit/1 Ml Insuln.pen 5 Unit SQ QHS Humalog (Insulin Lispro) 100 Unit/1 Ml Insuln.pen 2 Unit SQ QIDACHS Humalog (Insulin Lispro) 100 Unit/1 Ml Insuln.pen 0-12 Unit SQ QIDACHS Sliding scale before meals and at bedtime: >200= 4 units >300= 8 units >400= 12 units and call doctor Hydrocodone-Apap 5-325 (Hydrocodone Bit/Acetaminophen) 1 Each Tablet 1 Tab PO PRN Q6HRS PRN Levothyroxine Sodium 75 Mcg Tablet 75 Mcg PO DAILYAC Lisinopril 5 Mg Tablet 5 Mg PO DAILY Zofran Odt (Ondansetron) 4 Mg Tab.rapdis 4 Mg PO PRN Q8HRS PRN Miralax (Polyethylene Glycol 3350) 17 Gm Powd.pack 17 Gm PO PRN DAILY PRN Meclizine Hcl 25 Mg Tablet 25 Mg PO BID Melatonin 3 Mg Tablet 6 Mg PO QHS Donepezil Hcl 10 Mg Tablet 10 Mg PO QHS Escitalopram Oxalate 20 Mg Tablet 20 Mg PO DAILYWSUP I have reviewed the current psychotropics carefully including drug interactions. Risk benefit ratio favors no change other than as noted in my dictated progress note. Diagnosis: Problems: (1) Anxiety disorder (2) Impulse control disorder (3) Dementia, vascular, with depression (4) Dementia, vascular, with delusions (5) Dementia in Alzheimer's disease with depression (6) Dementia in Alzheimer's disease with delusions (7) Major depressive disorder, recurrent episode TEZ MATHEWS MD August 18, 2017 23:03
[2017-08-19] MEDS: LEVOTHYROXINE 75 MCG TABLET PO SCH (05:10)
[2017-08-19 05:14] VITALS: BP 118/48
[2017-08-19] MEDS: INSULIN LISPRO 300 UNITS/3 ML INSULN.PEN. SQ SCH ×8 (07:30→21:16)
[2017-08-19 08:52] LABS: BASO # 0.1 x10^3/uL (0.0-0.2); BASO % 1 % (0-3); EOS # 0.5 x10^3/uL (0.0-0.7); EOS % 6 % (0-3); HEMATOCRIT 33.8 % (39.0-53.0); HEMOGLOBIN 11.3 g/dL (13.0-17.5); LYMPH # 1.7 x10^3/uL (1.0-4.8); LYMPH % 24 % (24-48); MEAN CORPUSCULAR HEMOGLOBIN 33 pg (25-35); MEAN CORPUSCULAR HGB CONC 33 g/dL (31-37); MEAN CORPUSCULAR VOLUME 98 fL (79-100); MONO # 0.6 x10^3/uL (0.0-1.1); MONO % 9 % (0-9); NEUT # 4.2 x10^3uL (1.8-7.7); NEUT % 59 % (31-73); PLATELET COUNT 291 x10^3/uL (140-400); RED BLOOD COUNT 3.43 x10^6/uL (4.30-5.70); WHITE BLOOD COUNT 7.1 x10^3/uL (4.0-11.0)
[2017-08-19 09:08] LABS: ALBUMIN 3.1 g/dL (3.4-5.0); ALBUMIN/GLOBULIN RATIO 0.9 (1.0-1.7); CALCIUM 8.5 mg/dL (8.5-10.1); CREATININE 1.2 mg/dL (0.7-1.3); GFR 58.3; POTASSIUM 4.4 mmol/L (3.5-5.1); TOTAL BILIRUBIN 0.2 mg/dL (0.2-1.0); TOTAL PROTEIN 6.5 g/dL (6.4-8.2)
[2017-08-19] MEDS: MECLIZINE 12.5 MG TABLET. PO SCH ×2 (10:07→21:08)
[2017-08-19] MEDS: medroxyPROGESTERone 5 MG TABLET PO SCH (10:07)
[2017-08-19] MEDS: QUEtiapine 25 MG TABLET. PO SCH ×3 (10:07→18:42)
[2017-08-19] MEDS: SERTRALINE 50 MG TABLET. PO SCH (10:09)
[2017-08-19] MEDS: LISINOPRIL 5 MG TABLET. PO SCH (10:09)
[2017-08-19] MEDS: PRIMIDONE 50 MG TABLET PO SCH (10:09)
[2017-08-19] MEDS: rOPINIRole 0.25 MG TABLET. PO SCH ×3 (10:09→21:08)
[2017-08-19 16:56] VITALS: BP 157/81
[2017-08-19] MEDS: QUEtiapine 50 MG TABLET. PO SCH (18:42)
--- NOTE | 2017-08-19 21:00 | PDOC ---
Exam Note: Eddie Note: Please also refer to the separate dictated note~for this date of service dictated separately.~Patient seen individually. Discussed the patient with Nursing staff reviewed the chart.~Reviewed interim history and current functioning. Reviewed vital signs,~Labs/ Radiology~and current medications noted below. Continue current treatment with the changes noted in the dictated addendum note Assessment: Vital Signs: Vital Signs Date Time Temp Pulse Resp B/P (MAP) Pulse Ox O2 Delivery O2 Flow Rate FiO2 08/19/17 16:56 98.0 79 16 157/81 (106) 100 08/15/17 05:53 Room Air I&O Intake and Output 08/19/17 07:00 Intake Total 600 ml Balance 600 ml Intake Oral 600 ml Labs: Laboratory Tests Test 08/19/17 07:23 08/19/17 07:42 08/19/17 11:24 08/19/17 16:36 White Blood Count 7.1 x10^3/uL (4.0-11.0) Red Blood Count 3.43 x10^6/uL (4.30-5.70) L Hemoglobin 11.3 g/dL (13.0-17.5) L Hematocrit 33.8 % (39.0-53.0) L Mean Corpuscular Volume 98 fL (79-100) Mean Corpuscular Hemoglobin 33 pg (25-35) Mean Corpuscular Hemoglobin Concent 33 g/dL (31-37) Red Cell Distribution Width 14.0 % (11.5-14.5) Platelet Count 291 x10^3/uL (140-400) Neutrophils (%) (Auto) 59 % (31-73) Lymphocytes (%) (Auto) 24 % (24-48) Monocytes (%) (Auto) 9 % (0-9) Eosinophils (%) (Auto) 6 % (0-3) H Basophils (%) (Auto) 1 % (0-3) Neutrophils # (Auto) 4.2 x10^3uL (1.8-7.7) Lymphocytes # (Auto) 1.7 x10^3/uL (1.0-4.8) Monocytes # (Auto) 0.6 x10^3/uL (0.0-1.1) Eosinophils # (Auto) 0.5 x10^3/uL (0.0-0.7) Basophils # (Auto) 0.1 x10^3/uL (0.0-0.2) Sodium Level 140 mmol/L (136-145) Potassium Level 4.4 mmol/L (3.5-5.1) Chloride Level 105 mmol/L (98-107) Carbon Dioxide Level 26 mmol/L (21-32) Anion Gap 9 (6-14) Blood Urea Nitrogen 33 mg/dL (8-26) H Creatinine 1.2 mg/dL (0.7-1.3) Estimated GFR (Cockcroft-Gault) 58.3 BUN/Creatinine Ratio 28 (6-20) H Glucose Level 127 mg/dL (70-99) H Calcium Level 8.5 mg/dL (8.5-10.1) Total Bilirubin 0.2 mg/dL (0.2-1.0) Aspartate Amino Transferase (AST) 31 U/L (15-37) Alanine Aminotransferase (ALT) 30 U/L (16-63) Alkaline Phosphatase 82 U/L (46-116) Total Protein 6.5 g/dL (6.4-8.2) Albumin 3.1 g/dL (3.4-5.0) L Albumin/Globulin Ratio 0.9 (1.0-1.7) L Glucose (Fingerstick) 108 mg/dL (70-99) H 159 mg/dL (70-99) H 140 mg/dL (70-99) H Test 08/19/17 19:25 Glucose (Fingerstick) 192 mg/dL (70-99) H Current Medications: Meds: Current Medications Acetaminophen (Tylenol) 650 mg PRN Q6HRS PRN PO PAIN / TEMP Last administered on 08/05/17at 05:46; Start 07/25/17 at 19:45 Multi-Ingredient Ointment (Analgesic [place]) 1 nelson PRN QID PRN TP MUSCLE PAIN; Start 07/25/17 at 19:45 Al Hydroxide/Mg Hydroxide (Mylanta Plus Xs) 15 ml PRN AFTMEALHC PRN PO DYSPEPSIA; Start 07/25/17 at 19:45 Magnesium Hydroxide (Milk Of Magnesia) 2,400 mg PRN QHS PRN PO CONSTIPATION; Start 07/25/17 at 19:45 Donepezil HCl (Aricept) 10 mg QHS PO Last administered on 08/18/17 20:48; Start 07/25/17 at 22:00 Citalopram Hydrobromide (CeleXA) 40 mg DAILYWSUP PO Last administered on 16:31; Start 07/26/17 at 17:00; Stop 07/27/17 at 18:10; Status DC Melatonin 6 mg QHS PO Last administered on 08/18/17 20:49; Start 07/25/17 at 22:00 Acetaminophen/ Hydrocodone Bitart (Lortab 5/325) 1 tab PRN Q6HRS PRN PO PAIN; Start 07/25/17 at 21:45 Insulin Glargine (Lantus) 5 units QHS SQ Last administered on 08/18/17 20:52; Start 07/25/17 at 21:00 Insulin Human Lispro (HumaLOG) 2 units QIDACHS SQ Last administered on 12:29; Start 07/25/17 at 21:00 Insulin Human Lispro (HumaLOG) 100 units QIDACHS SQ ; Start 07/26/17 at 07:30; Stop 07/26/17 at 07:30; Status DC Levothyroxine Sodium (Synthroid) 75 mcg DAILYAC PO Last administered on at 08:45; Start 07/26/17 at 07:30; Stop 07/26/17 at 11:21; Status DC Lisinopril (Prinivil) 5 mg DAILY PO Last administered on 08/18/17 09:17; Start 07/26/17 at 09:00 Ondansetron HCl (Zofran Odt) 4 mg PRN Q8HRS PRN PO NAUSEA/VOMITING; Start 07/25 at 21:45 Polyethylene Glycol (miraLAX) 17 gm PRN DAILY PRN PO CONSTIPATION; Start at 21:45 Meclizine HCl (Antivert) 25 mg BID PO Last administered on 08/19/17 10:07; Start 07/25/17 at 22:15 Insulin Human Lispro (HumaLOG) 0-12 UNITS QIDACHS SQ Last administered on at 13:39; Start 07/25/17 at 21:00 Dextrose 12.5 gm PRN Q15MIN PRN IV SEE COMMENTS; Start 07/25/17 at 22:00 Bupropion HCl (Wellbutrin Xl) 150 mg DAILY PO Last administered on 08/02/17at 08 :49; Start 07/26/17 at 09:00; Stop 08/02/17 at 19:03; Status DC Levothyroxine Sodium (Synthroid) 75 mcg DAILY06 PO Last administered on 05:10; Start 07/27/17 at 06:00 Cyanocobalamin (Vitamin B-12) 1,000 mcg WEEKLY IM Last administered on 08:45; Start 08/02/17 at 09:00 Vitamin D (Vitamin D3) 50,000 unit WEEKLY PO Last administered on 08/16/17 08: 46; Start 07/26/17 at 19:00 Sertraline HCl (Zoloft) 50 mg DAILY PO Last administered on 08/19/17 10:09; Start 07/28/17 at 09:00 Olanzapine (ZyPREXA ZYDIS) 1.25 mg PRN Q2HR PRN PO ANXIETY / AGITATION; Start 07/27/17 at 18:15 Ropinirole HCl (Requip) 0.25 mg TID PO Last administered on 08/19/17 12:37; Start 07/28/17 at 21:00 Medroxyprogesterone Acetate (Provera) 2.5 mg DAILY PO Last administered on 07/31 08:07; Start 07/29/17 at 09:00; Stop 07/31/17 at 17:51; Status DC Medroxyprogesterone Acetate (Provera) 5 mg DAILY PO Last administered on at 08:46; Start 08/01/17 at 09:00; Stop 08/03/17 at 08:10; Status DC Primidone (Mysoline) 25 mg DAILY PO Last administered on 08/19/17 10:09; Start 08/01/17 at 09:00 Medroxyprogesterone Acetate (Provera) 7.5 mg DAILY PO Last administered on 08:01; Start 08/03/17 at 09:00; Stop 08/10/17 at 18:52; Status DC Quetiapine Fumarate (SEROquel) 12.5 mg DAILY PO Last administered on 08/03/17 08:13; Start 08/03/17 at 09:00; Stop 08/03/17 at 19:05; Status DC Quetiapine Fumarate (SEROquel) 12.5 mg TID@0900,1300,1700 PO Last administered on 08/13/17 17:18; Start 08/04/17 at 09:00; Stop 08/13/17 at 18:32; Status DC Divalproex Sodium (Depakote Er) 500 mg QHS PO Last administered on 08/06/17at 21 :22; Start 08/04/17 at 21:00; Stop 08/07/17 at 18:10; Status DC Divalproex Sodium (Depakote Er) 1,000 mg QHS PO Last administered on 08/18/17at 20:49; Start 08/07/17 at 21:00 Tamsulosin HCl (Flomax) 0.4 mg QHS PO Last administered on 08/18/17at 20:49; Start 08/09/17 at 21:00 Medroxyprogesterone Acetate (Provera) 10 mg DAILY PO Last administered on at 09:52; Start 08/11/17 at 09:00; Stop 08/13/17 at 18:32; Status DC Medroxyprogesterone Acetate (Provera) 12.5 mg DAILY PO Last administered on 08/15at 08:16; Start 08/14/17 at 09:00; Stop 08/15/17 at 18:25; Status DC Quetiapine Fumarate (SEROquel) 25 mg BID@0900,1700 PO Last administered on 08/16at 08:46; Start 08/14/17 at 09:00; Stop 08/16/17 at 13:08; Status DC Quetiapine Fumarate (SEROquel) 12.5 mg DAILY@1300 PO Last administered on at 12:57; Start 08/14/17 at 13:00; Stop 08/16/17 at 13:08; Status DC Medroxyprogesterone Acetate (Provera) 15 mg DAILY PO Last administered on at 10:07; Start 08/16/17 at 09:00 Quetiapine Fumarate (SEROquel) 37.5 mg BID@0900,1700 PO Last administered on at 10:07; Start 08/16/17 at 17:00 Quetiapine Fumarate (SEROquel) 25 mg DAILY@1300 PO Last administered on at 12:37; Start 08/17/17 at 13:00 Quetiapine Fumarate (SEROquel) 37.5 mg BID@0900,1700 PO Last administered on at 18:42; Start 08/19/17 at 18:00; Stop 08/20/17 at 09:01 Active Scripts Active Reported Wellbutrin Xl (Bupropion Hcl) 150 Mg Tab.er.24h 150 Mg PO DAILY Lantus Solostar (Insulin Glargine,Hum.rec.anlog) 100 Unit/1 Ml Insuln.pen 5 Unit SQ QHS Humalog (Insulin Lispro) 100 Unit/1 Ml Insuln.pen 2 Unit SQ QIDACHS Humalog (Insulin Lispro) 100 Unit/1 Ml Insuln.pen 0-12 Unit SQ QIDACHS Sliding scale before meals and at bedtime: >200= 4 units >300= 8 units >400= 12 units and call doctor Hydrocodone-Apap 5-325 (Hydrocodone Bit/Acetaminophen) 1 Each Tablet 1 Tab PO PRN Q6HRS PRN Levothyroxine Sodium 75 Mcg Tablet 75 Mcg PO DAILYAC Lisinopril 5 Mg Tablet 5 Mg PO DAILY Zofran Odt (Ondansetron) 4 Mg Tab.rapdis 4 Mg PO PRN Q8HRS PRN Miralax (Polyethylene Glycol 3350) 17 Gm Powd.pack 17 Gm PO PRN DAILY PRN Meclizine Hcl 25 Mg Tablet 25 Mg PO BID Melatonin 3 Mg Tablet 6 Mg PO QHS Donepezil Hcl 10 Mg Tablet 10 Mg PO QHS Escitalopram Oxalate 20 Mg Tablet 20 Mg PO DAILYWSUP I have reviewed the current psychotropics carefully including drug interactions. Risk benefit ratio favors no change other than as noted in my dictated progress note. Diagnosis: Problems: (1) Anxiety disorder (2) Impulse control disorder (3) Dementia, vascular, with depression (4) Dementia, vascular, with delusions (5) Dementia in Alzheimer's disease with depression (6) Dementia in Alzheimer's disease with delusions (7) Major depressive disorder, recurrent episode REID,MAN M MD August 19, 2017 21:00
[2017-08-19] MEDS: DONEPEZIL HCL 10 MG TABLET PO SCH (21:08)
[2017-08-19] MEDS: DIVALPROEX ER 500 MG TAB.ER.24H PO SCH (21:08)
[2017-08-19] MEDS: MELATONIN 3 MG TABLET PO SCH (21:08)
[2017-08-19] MEDS: TAMSULOSIN 0.4 MG CAP.ER.24H. PO SCH (21:08)
[2017-08-19] MEDS: INSULIN GLARGINE 300 UNITS/3 ML INSULN.PEN. SQ SCH (21:14)
--- NOTE | 2017-08-19 23:54 | PN ---
DATE: 08/17/2017 PSYCHIATRIC PROGRESS NOTE This late entry 08/17/2017 covers elements not covered in my initial note of 08/17/2017. SUBJECTIVE: Met with the patient in the evening, the patient has not been sexually inappropriate, somewhat sedated at times, acts helpless, wants others to do things for him that he can do himself. For example, he is asking nursing staff to hold his urine rather than holding it himself. Blood sugar is unremarkable. REVIEW OF SYSTEMS: Ambulation is impaired, in wheelchair. No CV, , pulmonary, eye, ENT system symptoms on review. MENTAL STATUS EXAM: Oriented to himself, situation. Speech has some latency, coherent, often responses monosyllabic. Abstraction fair, computation is impaired, language function intact. Mood and affect is somewhat withdrawn. IMPRESSION: Unchanged from initial note. PLAN: Continue current psychotropics. MAN Sunny MATHEWS MD DR: IAN/elvis JOB#: [id number] / [id number]
[2017-08-20] MEDS: LEVOTHYROXINE 75 MCG TABLET PO SCH (05:57)
[2017-08-20 06:03] VITALS: BP 110/54
[2017-08-20] MEDS: INSULIN LISPRO 300 UNITS/3 ML INSULN.PEN. SQ SCH ×8 (07:30→20:22)
[2017-08-20] MEDS: SERTRALINE 50 MG TABLET. PO SCH (08:29)
[2017-08-20] MEDS: MECLIZINE 12.5 MG TABLET. PO SCH ×2 (08:29→20:14)
[2017-08-20] MEDS: medroxyPROGESTERone 5 MG TABLET PO SCH (08:32)
[2017-08-20] MEDS: rOPINIRole 0.25 MG TABLET. PO SCH ×3 (08:32→20:14)
[2017-08-20] MEDS: LISINOPRIL 5 MG TABLET. PO SCH (08:32)
[2017-08-20] MEDS: QUEtiapine 25 MG TABLET. PO SCH ×3 (08:33→17:57)
[2017-08-20] MEDS: QUEtiapine 50 MG TABLET. PO SCH (08:33)
[2017-08-20] MEDS: PRIMIDONE 50 MG TABLET PO SCH (08:34)
[2017-08-20 15:59] VITALS: BP 131/70
[2017-08-20] MEDS: TAMSULOSIN 0.4 MG CAP.ER.24H. PO SCH (20:14)
[2017-08-20] MEDS: DIVALPROEX ER 500 MG TAB.ER.24H PO SCH (20:15)
[2017-08-20] MEDS: MELATONIN 3 MG TABLET PO SCH (20:16)
[2017-08-20] MEDS: DONEPEZIL HCL 10 MG TABLET PO SCH (20:19)
[2017-08-20] MEDS: INSULIN GLARGINE 300 UNITS/3 ML INSULN.PEN. SQ SCH (20:21)
--- NOTE | 2017-08-20 21:01 | PDOC ---
Exam Note: Eddie Note: Please also refer to the separate dictated note~for this date of service dictated separately.~Patient seen individually. Discussed the patient with Nursing staff reviewed the chart.~Reviewed interim history and current functioning. Reviewed vital signs,~Labs/ Radiology~and current medications noted below. Continue current treatment with the changes noted in the dictated addendum note Assessment: Vital Signs: Vital Signs Date Time Temp Pulse Resp B/P (MAP) Pulse Ox O2 Delivery O2 Flow Rate FiO2 08/20/17 15:59 98.5 82 16 131/70 (90) 99 08/15/17 05:53 Room Air I&O Intake and Output 08/20/17 07:00 Intake Total 725 ml Balance 725 ml Intake Oral 725 ml # Bowel Movements 1 Labs: Laboratory Tests Test 08/20/17 07:13 08/20/17 11:11 08/20/17 16:46 08/20/17 19:16 Glucose (Fingerstick) 104 mg/dL (70-99) H 163 mg/dL (70-99) H 138 mg/dL (70-99) H 169 mg/dL (70-99) H Current Medications: Meds: Current Medications Acetaminophen (Tylenol) 650 mg PRN Q6HRS PRN PO PAIN / TEMP Last administered on 08/05/17at 05:46; Start 07/25/17 at 19:45 Multi-Ingredient Ointment (Analgesic [place]) 1 nelson PRN QID PRN TP MUSCLE PAIN; Start 07/25/17 at 19:45 Al Hydroxide/Mg Hydroxide (Mylanta Plus Xs) 15 ml PRN AFTMEALHC PRN PO DYSPEPSIA; Start 07/25/17 at 19:45 Magnesium Hydroxide (Milk Of Magnesia) 2,400 mg PRN QHS PRN PO CONSTIPATION; Start 07/25/17 at 19:45 Donepezil HCl (Aricept) 10 mg QHS PO Last administered on 08/20/17at 20:19; Start 07/25/17 at 22:00 Citalopram Hydrobromide (CeleXA) 40 mg DAILYWSUP PO Last administered on at 16:31; Start 07/26/17 at 17:00; Stop 07/27/17 at 18:10; Status DC Melatonin 6 mg QHS PO Last administered on 08/20/17 20:16; Start 07/25/17 at 22:00 Acetaminophen/ Hydrocodone Bitart (Lortab 5/325) 1 tab PRN Q6HRS PRN PO PAIN; Start 07/25/17 at 21:45 Insulin Glargine (Lantus) 5 units QHS SQ Last administered on 08/20/17 20:21; Start 07/25/17 at 21:00 Insulin Human Lispro (HumaLOG) 2 units QIDACHS SQ Last administered on 20:22; Start 07/25/17 at 21:00 Insulin Human Lispro (HumaLOG) 100 units QIDACHS SQ ; Start 07/26/17 at 07:30; Stop 07/26/17 at 07:30; Status DC Levothyroxine Sodium (Synthroid) 75 mcg DAILYAC PO Last administered on 08:45; Start 07/26/17 at 07:30; Stop 07/26/17 at 11:21; Status DC Lisinopril (Prinivil) 5 mg DAILY PO Last administered on 08/20/17at 08:32; Start 07/26/17 at 09:00 Ondansetron HCl (Zofran Odt) 4 mg PRN Q8HRS PRN PO NAUSEA/VOMITING; Start 07/25 at 21:45 Polyethylene Glycol (miraLAX) 17 gm PRN DAILY PRN PO CONSTIPATION; Start at 21:45 Meclizine HCl (Antivert) 25 mg BID PO Last administered on 08/20/17 20:14; Start 07/25/17 at 22:15 Insulin Human Lispro (HumaLOG) 0-12 UNITS QIDACHS SQ Last administered on at 13:39; Start 07/25/17 at 21:00 Dextrose 12.5 gm PRN Q15MIN PRN IV SEE COMMENTS; Start 07/25/17 at 22:00 Bupropion HCl (Wellbutrin Xl) 150 mg DAILY PO Last administered on 08/02/17at 08 :49; Start 07/26/17 at 09:00; Stop 08/02/17 at 19:03; Status DC Levothyroxine Sodium (Synthroid) 75 mcg DAILY06 PO Last administered on 5/14/ 18at 05:57; Start 07/27/17 at 06:00 Cyanocobalamin (Vitamin B-12) 1,000 mcg WEEKLY IM Last administered on at 08:45; Start 08/02/17 at 09:00 Vitamin D (Vitamin D3) 50,000 unit WEEKLY PO Last administered on 08/16/17 08: 46; Start 07/26/17 at 19:00 Sertraline HCl (Zoloft) 50 mg DAILY PO Last administered on 08/20/17at 08:29; Start 07/28/17 at 09:00 Olanzapine (ZyPREXA ZYDIS) 1.25 mg PRN Q2HR PRN PO ANXIETY / AGITATION; Start 07/27/17 at 18:15 Ropinirole HCl (Requip) 0.25 mg TID PO Last administered on 08/20/17at 20:14; Start 07/28/17 at 21:00 Medroxyprogesterone Acetate (Provera) 2.5 mg DAILY PO Last administered on 07/31at 08:07; Start 07/29/17 at 09:00; Stop 07/31/17 at 17:51; Status DC Medroxyprogesterone Acetate (Provera) 5 mg DAILY PO Last administered on at 08:46; Start 08/01/17 at 09:00; Stop 08/03/17 at 08:10; Status DC Primidone (Mysoline) 25 mg DAILY PO Last administered on 08/20/17at 08:34; Start 08/01/17 at 09:00 Medroxyprogesterone Acetate (Provera) 7.5 mg DAILY PO Last administered on at 08:01; Start 08/03/17 at 09:00; Stop 08/10/17 at 18:52; Status DC Quetiapine Fumarate (SEROquel) 12.5 mg DAILY PO Last administered on 08/03/17at 08:13; Start 08/03/17 at 09:00; Stop 08/03/17 at 19:05; Status DC Quetiapine Fumarate (SEROquel) 12.5 mg TID@0900,1300,1700 PO Last administered on 08/13/17 17:18; Start 08/04/17 at 09:00; Stop 08/13/17 at 18:32; Status DC Divalproex Sodium (Depakote Er) 500 mg QHS PO Last administered on 08/06/17at 21 :22; Start 08/04/17 at 21:00; Stop 08/07/17 at 18:10; Status DC Divalproex Sodium (Depakote Er) 1,000 mg QHS PO Last administered on 08/20/17at 20:15; Start 08/07/17 at 21:00 Tamsulosin HCl (Flomax) 0.4 mg QHS PO Last administered on 08/20/17at 20:14; Start 08/09/17 at 21:00 Medroxyprogesterone Acetate (Provera) 10 mg DAILY PO Last administered on at 09:52; Start 08/11/17 at 09:00; Stop 08/13/17 at 18:32; Status DC Medroxyprogesterone Acetate (Provera) 12.5 mg DAILY PO Last administered on 08/15at 08:16; Start 08/14/17 at 09:00; Stop 08/15/17 at 18:25; Status DC Quetiapine Fumarate (SEROquel) 25 mg BID@0900,1700 PO Last administered on 08/16at 08:46; Start 08/14/17 at 09:00; Stop 08/16/17 at 13:08; Status DC Quetiapine Fumarate (SEROquel) 12.5 mg DAILY@1300 PO Last administered on at 12:57; Start 08/14/17 at 13:00; Stop 08/16/17 at 13:08; Status DC Medroxyprogesterone Acetate (Provera) 15 mg DAILY PO Last administered on at 08:32; Start 08/16/17 at 09:00 Quetiapine Fumarate (SEROquel) 37.5 mg BID@0900,1700 PO Last administered on at 17:57; Start 08/16/17 at 17:00 Quetiapine Fumarate (SEROquel) 25 mg DAILY@1300 PO Last administered on at 13:24; Start 08/17/17 at 13:00 Quetiapine Fumarate (SEROquel) 37.5 mg BID@0900,1700 PO Last administered on 5/ 14/18at 08:33; Start 08/19/17 at 18:00; Stop 08/20/17 at 09:01; Status DC Active Scripts Active Reported Wellbutrin Xl (Bupropion Hcl) 150 Mg Tab.er.24h 150 Mg PO DAILY Lantus Solostar (Insulin Glargine,Hum.rec.anlog) 100 Unit/1 Ml Insuln.pen 5 Unit SQ QHS Humalog (Insulin Lispro) 100 Unit/1 Ml Insuln.pen 2 Unit SQ QIDACHS Humalog (Insulin Lispro) 100 Unit/1 Ml Insuln.pen 0-12 Unit SQ QIDACHS Sliding scale before meals and at bedtime: >200= 4 units >300= 8 units >400= 12 units and call doctor Hydrocodone-Apap 5-325 (Hydrocodone Bit/Acetaminophen) 1 Each Tablet 1 Tab PO PRN Q6HRS PRN Levothyroxine Sodium 75 Mcg Tablet 75 Mcg PO DAILYAC Lisinopril 5 Mg Tablet 5 Mg PO DAILY Zofran Odt (Ondansetron) 4 Mg Tab.rapdis 4 Mg PO PRN Q8HRS PRN Miralax (Polyethylene Glycol 3350) 17 Gm Powd.pack 17 Gm PO PRN DAILY PRN Meclizine Hcl 25 Mg Tablet 25 Mg PO BID Melatonin 3 Mg Tablet 6 Mg PO QHS Donepezil Hcl 10 Mg Tablet 10 Mg PO QHS Escitalopram Oxalate 20 Mg Tablet 20 Mg PO DAILYWSUP I have reviewed the current psychotropics carefully including drug interactions. Risk benefit ratio favors no change other than as noted in my dictated progress note. Diagnosis: Problems: (1) Anxiety disorder (2) Impulse control disorder (3) Dementia, vascular, with depression (4) Dementia, vascular, with delusions (5) Dementia in Alzheimer's disease with depression (6) Dementia in Alzheimer's disease with delusions (7) Major depressive disorder, recurrent episode TEZ MATHEWS MD August 20, 2017 21:01
[2017-08-21] MEDS ORDERED: ACET500T68 PO (01:55)
[2017-08-21] MEDS ORDERED: CHOL500021 PO (01:57)
[2017-08-21] MEDS ORDERED: CYAN10002 IM (02:00)
[2017-08-21] MEDS ORDERED: DIVA500T17 PO (02:01)
[2017-08-21] MEDS ORDERED: MAG30ORA2 PO (02:05)
[2017-08-21] MEDS ORDERED: MAGN400O7 PO (02:06)
[2017-08-21] MEDS ORDERED: METH29OI TP (02:08)
[2017-08-21] MEDS ORDERED: OLAN5TAB7 PO (02:11)
[2017-08-21] MEDS ORDERED: OLAN5TAB5 PO (02:11)
[2017-08-21] MEDS ORDERED: PRIM50TA PO (02:13)
[2017-08-21] MEDS ORDERED: QUET50TA5 PO (02:15)
[2017-08-21] MEDS ORDERED: QUET25TA5 PO (02:16)
[2017-08-21] MEDS ORDERED: SERT50TA PO (02:17)
[2017-08-21] MEDS ORDERED: TAMS0.4C97 PO (02:18)
[2017-08-21] MEDS ORDERED: MEDR5TAB PO (02:19)
[2017-08-21] MEDS ORDERED: ROPI0.5T PO (02:21)
--- NOTE | 2017-08-21 04:46 | PN ---
DATE: 08/18/2017 This late entry 08/18/2017 covers elements not covered in my initial note 08/18/2017. I met with the patient in the evening. The patient slept 7-1/2 hours, takes his medications, but somewhat withdrawn. No sexual behavior noted. We will be checking labs morning of 08/19/2017. REVIEW OF SYSTEMS: Ambulation impaired, in wheelchair. No CV, , pulmonary, eye, ENT system symptoms on review. MENTAL STATUS EXAM: Oriented to himself and situation. Speech coherent. Abstraction fair, computation impaired, language function intact. Mood and affect still withdrawn, but improved. LABORATORY DATA: Reviewed. IMPRESSION: Unchanged from initial note. PLAN: Continue psychotropics mentioned in my initial note. Provera has been increased. MAN Sunny MATHEWS MD DR: IAN/elvis JOB#: [id number] / [id number]
[2017-08-21] MEDS: LEVOTHYROXINE 75 MCG TABLET PO SCH (06:05)
[2017-08-21 06:34] VITALS: BP 123/54
[2017-08-21] MEDS: INSULIN LISPRO 300 UNITS/3 ML INSULN.PEN. SQ SCH ×4 (07:30→12:48)
[2017-08-21] MEDS: QUEtiapine 25 MG TABLET. PO SCH ×2 (09:34→12:49)
[2017-08-21] MEDS: MECLIZINE 12.5 MG TABLET. PO SCH (09:34)
[2017-08-21] MEDS: SERTRALINE 50 MG TABLET. PO SCH (09:34)
[2017-08-21] MEDS: medroxyPROGESTERone 5 MG TABLET PO SCH (09:34)
[2017-08-21 09:35] VITALS: BP 123/54
[2017-08-21] MEDS: LISINOPRIL 5 MG TABLET. PO SCH (09:35)
[2017-08-21] MEDS: rOPINIRole 0.25 MG TABLET. PO SCH ×2 (09:35→12:49)
[2017-08-21] MEDS: PRIMIDONE 50 MG TABLET PO SCH (09:35)
--- NOTE | 2017-08-21 18:56 | PN ---
DATE: 08/20/2017 This is a late entry for 08/20/2017 and covers the elements not covered in my initial note of 08/20/2017. SUBJECTIVE: I met with the patient in the evening. The patient slept 8-1/4 hours, no sexually inappropriate behaviors noted. REVIEW OF SYSTEMS: Ambulation impaired, in wheelchair. No CV, , pulmonary, eye, ENT system symptoms on review. MENTAL STATUS EXAM: Oriented to himself and situation. Speech moderate latency, often responses monosyllabic. Abstraction fair, computation impaired, language function intact, attention span short. Mood and affect somewhat withdrawn, but no sexually aggressive behaviors noted, which is quite an improvement. LABORATORY DATA: Reviewed. IMPRESSION: Unchanged from initial note. PLAN: Continue current psychotropics including the increased Provera. MAN Sunny MATHEWS MD DR: IAN/elvsi JOB#: [id number] / [id number]
--- NOTE | 2017-08-21 20:10 | PDOC ---
Exam Note: Eddie Note: Please also refer to the separate dictated note~for this date of service dictated separately.~Patient seen individually. Discussed the patient with Nursing staff reviewed the chart.~Reviewed interim history and current functioning. Reviewed vital signs,~Labs/ Radiology~and current medications noted below. Continue current treatment with the changes noted in the dictated addendum note Assessment: Vital Signs: Vital Signs Date Time Temp Pulse Resp B/P (MAP) Pulse Ox O2 Delivery O2 Flow Rate FiO2 08/21/17 09:35 79 123/54 08/21/17 06:34 98.4 18 98 I&O Intake and Output 08/21/17 07:00 Intake Total 1640 ml Balance 1640 ml Intake Oral 1640 ml Labs: Laboratory Tests Test 08/21/17 07:41 08/21/17 11:11 Glucose (Fingerstick) 97 mg/dL (70-99) 166 mg/dL (70-99) H Current Medications: Meds: Current Medications Acetaminophen (Tylenol) 650 mg PRN Q6HRS PRN PO PAIN / TEMP Last administered on 08/05/17at 05:46; Start 07/25/17 at 19:45; Stop 08/21/17 at 13:22; Status DC Multi-Ingredient Ointment (Analgesic Donaldson) 1 jaylon PRN QID PRN TP MUSCLE PAIN; Start 07/25/17 at 19:45; Stop 08/21/17 at 13:22; Status DC Al Hydroxide/Mg Hydroxide (Mylanta Plus Xs) 15 ml PRN AFTMEALHC PRN PO DYSPEPSIA; Start 07/25/17 at 19:45; Stop 08/21/17 at 13:22; Status DC Magnesium Hydroxide (Milk Of Magnesia) 2,400 mg PRN QHS PRN PO CONSTIPATION; Start 07/25/17 at 19:45; Stop 08/21/17 at 13:22; Status DC Donepezil HCl (Aricept) 10 mg QHS PO Last administered on 08/20/17at 20:19; Start 07/25/17 at 22:00; Stop 08/21/17 at 13:22; Status DC Citalopram Hydrobromide (CeleXA) 40 mg DAILYWSUP PO Last administered on at 16:31; Start 07/26/17 at 17:00; Stop 07/27/17 at 18:10; Status DC Melatonin 6 mg QHS PO Last administered on 08/20/17at 20:16; Start 07/25/17 at 22:00; Stop 08/21/17 at 13:22; Status DC Acetaminophen/ Hydrocodone Bitart (Lortab 5/325) 1 tab PRN Q6HRS PRN PO PAIN; Start 07/25/17 at 21:45; Stop 08/21/17 at 13:22; Status DC Insulin Glargine (Lantus) 5 units QHS SQ Last administered on 08/20/17at 20:21; Start 07/25/17 at 21:00; Stop 08/21/17 at 13:22; Status DC Insulin Human Lispro (HumaLOG) 2 units QIDACHS SQ Last administered on at 12:48; Start 07/25/17 at 21:00; Stop 08/21/17 at 13:22; Status DC Insulin Human Lispro (HumaLOG) 100 units QIDACHS SQ ; Start 07/26/17 at 07:30; Stop 07/26/17 at 07:30; Status DC Levothyroxine Sodium (Synthroid) 75 mcg DAILYAC PO Last administered on at 08:45; Start 07/26/17 at 07:30; Stop 07/26/17 at 11:21; Status DC Lisinopril (Prinivil) 5 mg DAILY PO Last administered on 08/21/17at 09:35; Start 07/26/17 at 09:00; Stop 08/21/17 at 13:22; Status DC Ondansetron HCl (Zofran Odt) 4 mg PRN Q8HRS PRN PO NAUSEA/VOMITING; Start 07/25 at 21:45; Stop 08/21/17 at 13:22; Status DC Polyethylene Glycol (miraLAX) 17 gm PRN DAILY PRN PO CONSTIPATION; Start at 21:45; Stop 08/21/17 at 13:22; Status DC Meclizine HCl (Antivert) 25 mg BID PO Last administered on 08/21/17at 09:34; Start 07/25/17 at 22:15; Stop 08/21/17 at 13:22; Status DC Insulin Human Lispro (HumaLOG) 0-12 UNITS QIDACHS SQ Last administered on at 13:39; Start 07/25/17 at 21:00; Stop 08/21/17 at 13:22; Status DC Dextrose 12.5 gm PRN Q15MIN PRN IV SEE COMMENTS; Start 07/25/17 at 22:00; Stop 08/21/17 at 13:22; Status DC Bupropion HCl (Wellbutrin Xl) 150 mg DAILY PO Last administered on 08/02/17at 08 :49; Start 07/26/17 at 09:00; Stop 08/02/17 at 19:03; Status DC Levothyroxine Sodium (Synthroid) 75 mcg DAILY06 PO Last administered on at 06:05; Start 07/27/17 at 06:00; Stop 08/21/17 at 13:22; Status DC Cyanocobalamin (Vitamin B-12) 1,000 mcg WEEKLY IM Last administered on at 08:45; Start 08/02/17 at 09:00; Stop 08/21/17 at 13:22; Status DC Vitamin D (Vitamin D3) 50,000 unit WEEKLY PO Last administered on 08/16/17at 08: 46; Start 07/26/17 at 19:00; Stop 08/21/17 at 13:22; Status DC Sertraline HCl (Zoloft) 50 mg DAILY PO Last administered on 08/21/17at 09:34; Start 07/28/17 at 09:00; Stop 08/21/17 at 13:22; Status DC Olanzapine (ZyPREXA ZYDIS) 1.25 mg PRN Q2HR PRN PO ANXIETY / AGITATION; Start 07/27/17 at 18:15; Stop 08/21/17 at 13:22; Status DC Ropinirole HCl (Requip) 0.25 mg TID PO Last administered on 08/21/17at 12:49; Start 07/28/17 at 21:00; Stop 08/21/17 at 13:22; Status DC Medroxyprogesterone Acetate (Provera) 2.5 mg DAILY PO Last administered on 07/31at 08:07; Start 07/29/17 at 09:00; Stop 07/31/17 at 17:51; Status DC Medroxyprogesterone Acetate (Provera) 5 mg DAILY PO Last administered on at 08:46; Start 08/01/17 at 09:00; Stop 08/03/17 at 08:10; Status DC Primidone (Mysoline) 25 mg DAILY PO Last administered on 08/21/17at 09:35; Start 08/01/17 at 09:00; Stop 08/21/17 at 13:22; Status DC Medroxyprogesterone Acetate (Provera) 7.5 mg DAILY PO Last administered on at 08:01; Start 08/03/17 at 09:00; Stop 08/10/17 at 18:52; Status DC Quetiapine Fumarate (SEROquel) 12.5 mg DAILY PO Last administered on 08/03/17at 08:13; Start 08/03/17 at 09:00; Stop 08/03/17 at 19:05; Status DC Quetiapine Fumarate (SEROquel) 12.5 mg TID@0900,1300,1700 PO Last administered on 08/13/17at 17:18; Start 08/04/17 at 09:00; Stop 08/13/17 at 18:32; Status DC Divalproex Sodium (Depakote Er) 500 mg QHS PO Last administered on 08/06/17 21 :22; Start 08/04/17 at 21:00; Stop 08/07/17 at 18:10; Status DC Divalproex Sodium (Depakote Er) 1,000 mg QHS PO Last administered on 08/20/17at 20:15; Start 08/07/17 at 21:00; Stop 08/21/17 at 13:22; Status DC Tamsulosin HCl (Flomax) 0.4 mg QHS PO Last administered on 08/20/17at 20:14; Start 08/09/17 at 21:00; Stop 08/21/17 at 13:22; Status DC Medroxyprogesterone Acetate (Provera) 10 mg DAILY PO Last administered on at 09:52; Start 08/11/17 at 09:00; Stop 08/13/17 at 18:32; Status DC Medroxyprogesterone Acetate (Provera) 12.5 mg DAILY PO Last administered on 08/15at 08:16; Start 08/14/17 at 09:00; Stop 08/15/17 at 18:25; Status DC Quetiapine Fumarate (SEROquel) 25 mg BID@0900,1700 PO Last administered on 08/16at 08:46; Start 08/14/17 at 09:00; Stop 08/16/17 at 13:08; Status DC Quetiapine Fumarate (SEROquel) 12.5 mg DAILY@1300 PO Last administered on at 12:57; Start 08/14/17 at 13:00; Stop 08/16/17 at 13:08; Status DC Medroxyprogesterone Acetate (Provera) 15 mg DAILY PO Last administered on at 09:34; Start 08/16/17 at 09:00; Stop 08/21/17 at 13:22; Status DC Quetiapine Fumarate (SEROquel) 37.5 mg BID@0900,1700 PO Last administered on at 09:34; Start 08/16/17 at 17:00; Stop 08/21/17 at 13:22; Status DC Quetiapine Fumarate (SEROquel) 25 mg DAILY@1300 PO Last administered on at 12:49; Start 08/17/17 at 13:00; Stop 08/21/17 at 13:22; Status DC Quetiapine Fumarate (SEROquel) 37.5 mg BID@0900,1700 PO Last administered on at 08:33; Start 08/19/17 at 18:00; Stop 08/20/17 at 09:01; Status DC Active Scripts Active Reported Requip (Ropinirole Hcl) 0.5 Mg Tablet 0.25 Mg PO TID Provera (Medroxyprogesterone Acetate) 5 Mg Tablet 15 Mg PO DAILY Flomax (Tamsulosin Hcl) 0.4 Mg Cap.er.24h 0.4 Mg PO HS Zoloft (Sertraline Hcl) 50 Mg Tablet 50 Mg PO DAILY Seroquel (Quetiapine Fumarate) 25 Mg Tablet 25 Mg PO [id number] Seroquel (Quetiapine Fumarate) 50 Mg Tablet 37.5 Mg PO [id number] Primidone 50 Mg Tablet 25 Mg PO DAILY Zyprexa Zydis (Olanzapine) 5 Mg Tab.rapdis 1.25 Mg PO PRN Q2HR PRN MDD 10 mg/ 24 hrs Analgesic Donaldson (Methyl Salicylate/Menthol) 28 Gm Oint...g. 1 Jaylon TP PRN QID PRN Milk Of Magnesia (Magnesium Hydroxide) 400 Mg/5 Ml Oral.susp 2,400 Mg PO PRN QHS PRN Mag-Al Plus Xs Suspension (Mag Hydrox/Al Hydrox/Simeth) 30 Ml Oral.susp 15 Ml PO PRN AFTMEALHC PRN Divalproex Sodium Er (Divalproex Sodium) 500 Mg Tab.er.24h 1,000 Mg PO HS Cyanocobalamin Injection (Cyanocobalamin (Vitamin B-12)) 1,000 Mcg/1 Ml Vial 1, 000 Mcg IM WEEKLY ON SUNDAY D3-50 (Cholecalciferol (Vitamin D3)) 50,000 Unit Capsule 50,000 Unit PO WEEKLY ON SUNDAY Acetaminophen 500 Mg Tablet 650 Mg PO PRN Q6HRS PRN Lantus Solostar (Insulin Glargine,Hum.rec.anlog) 100 Unit/1 Ml Insuln.pen 5 Unit SQ QHS Humalog (Insulin Lispro) 100 Unit/1 Ml Insuln.pen 2 Unit SQ QIDACHS Humalog (Insulin Lispro) 100 Unit/1 Ml Insuln.pen 0-12 Unit SQ QIDACHS Sliding scale before meals and at bedtime: >200= 4 units >300= 8 units >400= 12 units and call doctor Hydrocodone-Apap 5-325 (Hydrocodone Bit/Acetaminophen) 1 Each Tablet 1 Tab PO PRN Q6HRS PRN Levothyroxine Sodium 75 Mcg Tablet 75 Mcg PO DAILYAC Lisinopril 5 Mg Tablet 5 Mg PO DAILY Zofran Odt (Ondansetron) 4 Mg Tab.rapdis 4 Mg PO PRN Q8HRS PRN Miralax (Polyethylene Glycol 3350) 17 Gm Powd.pack 17 Gm PO PRN DAILY PRN Meclizine Hcl 25 Mg Tablet 25 Mg PO BID Melatonin 3 Mg Tablet 6 Mg PO QHS Donepezil Hcl 10 Mg Tablet 10 Mg PO QHS I have reviewed the current psychotropics carefully including drug interactions. Risk benefit ratio favors no change other than as noted in my dictated progress note. Diagnosis: Problems: (1) Anxiety disorder (2) Impulse control disorder (3) Dementia, vascular, with depression (4) Dementia, vascular, with delusions (5) Dementia in Alzheimer's disease with depression (6) Dementia in Alzheimer's disease with delusions (7) Major depressive disorder, recurrent episode (8) Major neurocognitive disorder TEZ MATHEWS MD August 21, 2017 20:10
--- NOTE | 2017-08-22 10:33 | DS ---
DATE OF DISCHARGE: 08/21/2017 DISCHARGE SUMMARY/PSYCHIATRIC PROGRESS NOTE This is a late entry, date of service 08/21/2017 covers elements not covered in my initial note. REASON FOR ADMISSION: Please refer to the admission history for details. Briefly, the patient is an 82-year-old male referred to us from [facility] by his primary care physician and psychiatrist on account of failure for outpatient psychiatric interventions. The patient was being sexually inappropriate, had his hand under the shirt of her peer on multiple occasions. He was making increasingly more profane inappropriate sexual comments, appeared depressed, more confused, irritable, angry. He had failed outpatient psychiatric interventions with Dr. Becerril and referred for inpatient psychiatric stabilization. SIGNIFICANT FINDINGS AND CLINICAL COURSE: Following admission, the patient was seen daily individually by myself, followed medically per Dr. Tang/Dr Singer. He was quite irritable, labile, sexually very inappropriate on repeated occasions not only with females, but also with males to a point where one of the male patients made a comment to the nursing staff "do not go near him. He is wanting to f--- everyone." The patient is cognitively less confused and it appeared initially, but he certainly had short-term memory deficits. Adjustments were made in his psychotropics and he seemed to respond to a combination of Provera 15 mg a day and was also on Aricept 10 mg a day, melatonin 6 mg at bedtime, Zoloft 50 mg a day, Zyprexa p.r.n., Requip 0.25 mg t.i.d., primidone 25 mg daily, Seroquel 25 mg at 1300 and 37.5 mg at 0900 and 1700, Depakote ER 1000 mg at bedtime with a therapeutic valproic acid level at 52. Gradually mood appeared to improve. His sexually inappropriate behaviors were not evident. No suicidal or homicidal ideation prior to discharge. REVIEW OF SYSTEMS: Prior to discharge, ambulation impaired, in wheelchair. No CV, , pulmonary, eye, ENT system symptoms on review. MENTAL STATUS EXAM: Oriented to himself and situation. Speech has some latency, coherent. Abstraction fair, computation impaired, language function intact. Mood and affect was improved. CONDITION AT DISCHARGE: Improved. FINAL DIAGNOSES: Major neurocognitive disorder, early Alzheimer, vascular with delusion, depression, behavioral disturbance, probable bipolar 1 disorder, unspecified, mixed with psychotic features; anxiety disorder, unspecified; impulse control disorder, unspecified. Rest unchanged from admission. DISCHARGE MEDICATIONS: Please refer to the EMRAD. DISCHARGE INSTRUCTIONS: Psychiatric medical followup at the alf. Time for discharge day management greater than 30 minutes. MAN Sunny MATHEWS MD DR: IAN/elvis JOB#: [id number] / [id number]
== END 2017-08-21 13:21 | disposition home or self-care (01) | DRG 885 ==
LOC: GEROPSY 18:53
PROVIDERS: ADMIT Psychiatry & Neurology Psychiatry; ATTEND Psychiatry & Neurology Psychiatry
DX: F31.64 Bipolar disorder, current episode mixed, severe, with psychotic features (principal); G30.9 Alzheimer's disease, unspecified; F01.51 Vascular dementia, unspecified severity, with behavioral disturbance; E11.9 Type 2 diabetes mellitus without complications; F02.81 Dementia in other diseases classified elsewhere, unspecified severity, with behavioral disturbance; K59.09 Other constipation; M17.0 Bilateral primary osteoarthritis of knee; F63.9 Impulse disorder, unspecified; E03.9 Hypothyroidism, unspecified; E53.8 Deficiency of other specified B group vitamins; E55.9 Vitamin D deficiency, unspecified; F41.9 Anxiety disorder, unspecified; G89.4 Chronic pain syndrome; I10 Essential (primary) hypertension; Z79.899 Other long term (current) drug therapy; Z91.19 Patient's noncompliance with other medical treatment and regimen; Z87.440 Personal history of urinary (tract) infections; Z87.891 Personal history of nicotine dependence; Z99.3 Dependence on wheelchair
CPT/HCPCS: 36415; 80053; 80061; 80164; 81001; 82306; 82607; 82947; 83036; 83540; 83550; 83735; 84436; 84443; 84480; 85025; 86593; J1815; J3420; J8597